=== PATIENT | female | born 1975 | race Caucasian/White ===

== ENCOUNTER 2017-02-04 15:34 | Emergency (ER) | payer OTHER ==
[2017-02-04 15:51] VITALS: BP 130/84; PULSE 89; O2SAT 95
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
[2017-02-04] MEDS ORDERED: BACIGUENT PACKET ONE (16:16)
[2017-02-04] MEDS ORDERED: BACIGUENT PACKET TP ONE (16:19)
== END 2017-02-04 16:26 | disposition home or self-care (01) ==
LOC: ED 15:34
DX: T22.211A Burn of second degree of right forearm, initial encounter (principal); W28.XXXA Contact with powered lawn mower, initial encounter; Y93.H9 Activity, other involving exterior property and land maintenance, building and construction
CPT/HCPCS: 99283; A9270-GY

== ENCOUNTER 2017-06-30 12:30 | Emergency (ER) | payer OTHER ==
[2017-06-30] MEDS ORDERED: BENADRYL 50 MG/ML IV ONE (12:49)
[2017-06-30] MEDS ORDERED: Reglan 10 MG/2 ML IV ONE (12:49)
--- NOTE | 2017-06-30 12:54 | ERPHSYRPT ---
- History of Present Illness Time Seen by Provider: 06/30/17 12:36 Source: patient Physician History: CC: headache Hx: 42 y/o patient of Dr Shannan Reeves. She has headache for past three days, awoke with it. Severe. Photophobia. Never had headaches like this in the past. No fever. Some sweats. No neck pain. Nausea and even vomiting. Always has some chest pains. No N/T/W. [place] some dizziness. Timing/Duration: day(s) (3) Quality: aching Head Pain Location: frontal Severity of Pain-Max: severe Severity of Pain-Current: severe Recent Head Trauma: no recent headache/trauma Associated Symptoms: nausea/vomiting Allergies/Adverse Reactions: Penicillins Allergy (Severe, Verified 02/04/17 15:51) EYES, THROAT SWELLS povidone-iodine [From Betadine] Allergy (Severe, Verified 02/04/17 15:51) Hives soap [From Betadine] Allergy (Intermediate, Verified 02/04/17 15:51) Hives Sulfa (Sulfonamide Antibiotics) Allergy (Intermediate, Verified 02/04/17 15:51) Hives venom-honey bee [bee venom (honey bee)] Allergy (Verified 02/04/17 15:51) Home Medications: Diazepam [Valium] 5 mg PO DAILY 06/30/17 [History] Pregabalin [Lyrica] 25 mg PO DAILY 06/30/17 [History] Hx Tetanus, Diphtheria Vaccination/Date Given: Yes ([place]) Hx Influenza Vaccination/Date Given: Yes Hx Pneumococcal Vaccination/Date Given: No - Review of Systems Constitutional: Malaise, No Fever, No Chills Eyes: No Symptoms, Photophobia, No Vision Changes Ears, Nose, & Throat: No Symptoms Respiratory: No Symptoms Cardiac: Chest Pain, No Syncope Abdominal/Gastrointestinal: Nausea, Vomiting, No Abdominal Pain, No Diarrhea Skin: No Rash Neurological: Dizziness, Headache, No Focal Weakness, No Parasthesia, No Seizure Psychological: Emotional Lability (tearful) All Other Systems: Reviewed and Negative - Past Medical History Pertinent Past Medical History: Yes Neurological History: No Pertinent History ENT History: No Pertinent History Cardiac History: No Pertinent History Respiratory History: COPD Endocrine Medical History: No Pertinent History Musculoskeletal History: Degenerative Disk Disease, Other GI Medical History: No Pertinent History History: No Pertinent History Psycho-Social History: Bipolar, Depression, Panic Disorder, Other Female Reproductive Disorders: No Pertinent History Other Medical History: SLEEP APNEA - Past Surgical History Past Surgical History: Yes Other Surgical History: D/C - Social History Smoking Status: Current every day smoker How long have you smoked: 20 Exposure to second hand smoke: Yes Drug Use: none Patient Lives Alone: No - Nursing Vital Signs Nursing Vital Signs: Initial Vital Signs Temperature 97.8 F 06/30/17 12:43 Pulse Rate 92 H 06/30/17 12:43 Respiratory Rate 16 06/30/17 12:43 Blood Pressure 138/87 06/30/17 12:43 O2 Sat by Pulse Oximetry 96 06/30/17 12:43 Pain Scale Pain Intensity 10 - Physical Exam General Appearance: alert, obese Eye Exam: PERRL/EOMI, photophobia Ears, Nose, Throat Exam: normal ENT inspection, moist mucous membranes Neck Exam: normal inspection, non-tender, supple, No meningismus Respiratory Exam: normal breath sounds Cardiovascular Exam: regular rate/rhythm Gastrointestinal/Abdominal Exam: soft, No tenderness, No distention Extremity Exam: normal inspection, normal range of motion Mental Status Exam: alert, oriented x 3, 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 Exam: normal hearing, normal speech, PERRL Motor/Sensory Exam: no motor deficit, no sensory deficit, no pronator drift Skin Exam: warm, dry, No rash - Course Nursing assessment & vital signs reviewed: Yes EKG Interpreted by Me: RATE (88), Sinus Rhythm, NORMAL AXIS, NORMAL INTERVALS ( QTc 429), Non-specific ST Changes (unchanged from prior tracing) - CT Exams head CT Interpretation: Negative, Tele-radiologist Report Ordered Tests: Active Orders 24 hr Category Date Time Status IV Insertion STAT Care 06/30/17 12:49 Active Oxygen-ED Only NON-REBREATHER 100% Care 06/30/17 12:49 Active HEAD WITHOUT CONTRAST [CT] Stat Exams 06/30/17 12:50 Completed CBC W DIFF Stat Lab 06/30/17 12:45 Completed CMP Stat Lab 06/30/17 12:45 Completed HCG QUALITATIVE,SERUM Stat Lab 06/30/17 12:45 Completed VENOUS BLOOD GAS Urgent Lab 06/30/17 12:57 Completed Medication Summary Generic Name Dose Route Start Last Admin Trade Name Freq PRN Reason Stop Dose Admin Sodium Chloride 1,000 mls @ 250 mls/hr 06/30/17 13:00 06/30/17 12:59 Sodium Chloride 0.9% 1000 Ml IV 07/30/17 12:59 250 mls/hr .Q4H [place] Administration Discontinued Medications Generic Name Dose Route Start Last Admin Trade Name Geovanni PRN Reason Stop Dose Admin Diphenhydramine HCl 25 mg 06/30/17 12:49 06/30/17 12:58 Benadryl 50 Mg/Ml IV 06/30/17 12:50 25 mg STAT ONE Administration Diphenhydramine HCl Confirm 06/30/17 12:57 Benadryl 50 Mg/Ml Administered 06/30/17 12:58 Dose 50 mg .ROUTE .STK-MED ONE Fentanyl Citrate 100 mcg 06/30/17 14:14 Sublimaze 100 Mcg/2 Ml IV 06/30/17 14:15 STAT ONE Ketorolac Tromethamine 30 mg 06/30/17 14:14 Toradol 30 Mg Injection IV 06/30/17 14:15 STAT ONE Metoclopramide HCl 10 mg 06/30/17 12:49 06/30/17 12:58 Reglan 10 Mg/2 Ml IV 06/30/17 12:50 10 mg STAT ONE Administration Metoclopramide HCl Confirm 06/30/17 12:57 Reglan 10 Mg/2 Ml Administered 06/30/17 12:58 Dose 10 mg .ROUTE .STK-MED ONE Lab/Rad Data: Laboratory Result Diagrams 06/30/17 12:45 06/30/17 12:45 Laboratory Results 06/30/17 06/30/17 06/30/17 Range/Units 12:57 12:45 12:45 WBC (4.0-10.5) K/mm3 RBC (4.1-5.4) M/mm3 Hgb (12.0-16.0) gm/dl Hct (35-47) % MCV (78-100) fl MCH (26-32) pg MCHC (32-36) g/dl RDW (11.5-14.0) % Plt Count (150-450) K/mm3 MPV (6-9.5) fl Gran % (36.0-66.0) % Lymphocytes % (24.0-44.0) % Monocytes % (0.0-12.0) % Eosinophils % (0.00-5.0) % Basophils % (0.0-0.4) % Basophils # (0-0.4) VBG pH 7.44 H (7.32-7.42) VBG pCO2 at Pat Temp 38 L (42-55) mm/Hg VBG pO2 at Pat Temp 58 H (25-40) mm/Hg VBG HCO3 25.8 (22-28) meq/L VBG O2 Sat ([place]) 93.8 L (95-100) VBG Base Excess 1.7 (-2.0-2.0) VBG Hemoglobin 15.4 VBG Carboxyhemoglobin 5.5 (0.0-6.9) % T HGB POC Potassium 4.0 (3.5-5.1) Sodium 137 (136-145) mEq/L Potassium 4.0 (3.5-5.1) mEq/L Chloride 102 (98-107) mEq/L Carbon Dioxide 24.6 (21-32) mEq/L Anion Gap 14.0 (5-15) MEQ/L BUN 10 (9-20) mg/dL Creatinine 0.73 (0.55-1.30) mg/dl Estimated GFR > 60 ML/MIN Glucose 93 (70-110) MG/DL Calcium 9.0 (8.5-10.1) mg/dL Total Bilirubin 0.30 (0.2-1.0) mg/dL AST 26 (15-37) U/L ALT 39 (12-78) U/L Alkaline Phosphatase 131 H (46-116) U/L Serum Total Protein 8.2 (6.4-8.2) gm/dL Albumin 3.7 (3.4-5.0) g/dL Serum , Qual NEGATIVE (Negative) 06/30/17 Range/Units 12:45 WBC 8.5 (4.0-10.5) K/mm3 RBC 4.79 (4.1-5.4) M/mm3 Hgb 14.4 (12.0-16.0) gm/dl Hct 44.7 (35-47) % MCV 93.3 (78-100) fl MCH 30.1 (26-32) pg MCHC 32.2 (32-36) g/dl RDW 13.5 (11.5-14.0) % Plt Count 379 (150-450) K/mm3 MPV 10.2 H (6-9.5) fl Gran % 47.2 (36.0-66.0) % Lymphocytes % 39.5 (24.0-44.0) % Monocytes % 11.4 (0.0-12.0) % Eosinophils % 1.8 (0.00-5.0) % Basophils % 0.1 (0.0-0.4) % Basophils # 0.01 (0-0.4) VBG pH (7.32-7.42) VBG pCO2 at Pat Temp (42-55) mm/Hg VBG pO2 at Pat Temp (25-40) mm/Hg VBG HCO3 (22-28) meq/L VBG O2 Sat ([place]) (95-100) VBG Base Excess (-2.0-2.0) VBG Hemoglobin VBG Carboxyhemoglobin (0.0-6.9) % T HGB POC Potassium (3.5-5.1) Sodium (136-145) mEq/L Potassium (3.5-5.1) mEq/L Chloride (98-107) mEq/L Carbon Dioxide (21-32) mEq/L Anion Gap (5-15) MEQ/L BUN (9-20) mg/dL Creatinine (0.55-1.30) mg/dl Estimated GFR ML/MIN Glucose (70-110) MG/DL Calcium (8.5-10.1) mg/dL Total Bilirubin (0.2-1.0) mg/dL AST (15-37) U/L ALT (12-78) U/L Alkaline Phosphatase (46-116) U/L Serum Total Protein (6.4-8.2) gm/dL Albumin (3.4-5.0) g/dL Serum , Qual (Negative) - Progress Progress Note: 06/30/17 14:20 She has some red bumps in the right forehead, mostly inside hairline which are consistent with zoster. She is not sure when the broke out. This is area of most intense pain. She has been medicated. Will Rx acyclovir/norco. Counseled pt/family regarding: lab results, diagnosis, need for follow-up, rad results, smoking cessation - Departure Time of Disposition: 14:21 Departure Disposition: Home Clinical Impression: Headache, Zoster Condition: Stable Critical Care Time: No Referrals: BONG REEVES [Primary Care Provider] - Instructions: Shingles (DC), Headache, Adult (DC) Additional Instructions: See eye doctor for any eye involvement. Rx acyclovir. Rx norco if needed for pain. Follow up with Dr Reeves. No driving and stay with family. Prescriptions: Hydrocodone Bit/Acetaminophen [Juliette 5-325 Tablet] 1 each PO Q6H PRN PRN #15 tablet MDD 4 PRN Reason: Pain Acyclovir 800 mg [Zovirax 800 mg] 800 mg PO 5XD #35 tablet
[2017-06-30] MEDS ORDERED: BENADRYL 50 MG/ML ONE (12:57)
[2017-06-30] MEDS ORDERED: Reglan 10 MG/2 ML ONE (12:57)
[2017-06-30] MEDS ORDERED: Sodium Chloride 0.9% 1000 ML 1,000 ML ONE (12:57)
[2017-06-30 12:59] LABS: VBG BASE EXCESS 1.7 (-2.0-2.0); VBG CARBOXYHEMOGLOBIN 5.5 % T HGB (0.0-6.9); VBG HCO3- 25.8 meq/L (22-28); VBG HEMOGLOBIN 15.4; VBG O2 SATURATION 93.8 (95-100); VBG pH 7.44 (7.32-7.42)
[2017-06-30] MEDS ORDERED: Sodium Chloride 0.9% 1000 ML 1,000 ML IV SCH (13:00)
[2017-06-30 13:02] LABS: BASOPHIL % 0.1 % (0.0-0.4); Basophil (Absolute #) 0.01 (0-0.4); Eosinophil % 1.8 % (0.00-5.0); Eosinophil (Absolute #) 0.15 (0-0.5); Granulocytes % 47.2 % (36.0-66.0); Hematocrit 44.7 % (35-47); Hemoglobin 14.4 gm/dl (12.0-16.0); Lymphocyte (Absolute #) 3.35 (1.0-4.6); Lymphocytes % 39.5 % (24.0-44.0); Mean Cell Volume 93.3 fl (78-100); Mean Corpuscular Hemoglobin 30.1 pg (26-32); Mean Corpuscular Hgb Concent. 32.2 g/dl (32-36); Mean Platelet Volume 10.2 fl (6-9.5); Monocyte (Absolute #) 0.97 (0.0-1.3); Monocytes % 11.4 % (0.0-12.0); Platelet Count 379 K/mm3 (150-450); Red Blood Count 4.79 M/mm3 (4.1-5.4); Red Cell Distribution Width 13.5 % (11.5-14.0); White Blood Count 8.5 K/mm3 (4.0-10.5)
[2017-06-30 13:34] LABS: ALBUMIN 3.7 g/dL (3.4-5.0); ALKALINE PHOSPHATASE 131 U/L (46-116); BLOOD UREA NITROGEN 10 mg/dL (9-20); CHLORIDE 102 mEq/L (98-107); Carbon Dioxide 24.6 mEq/L (21-32); Creatinine 1 0.73 mg/dl (0.55-1.30); EST GLOMERULAR FILTRATION RATE > 60 ML/MIN; Glucose 93 MG/DL (70-110); SGOT/AST 26 U/L (15-37); SGPT/ALT 39 U/L (12-78); SODIUM 137 mEq/L (136-145); Total Protein 8.2 gm/dL (6.4-8.2)
[2017-06-30] MEDS ORDERED: SUBLIMAZE 100 MCG/2 ML IV ONE (14:14)
[2017-06-30] MEDS ORDERED: TORAdol 30 mg Injection IV ONE (14:14)
--- NOTE | 2017-06-30 14:19 | XRAY ---
Indication: Headache and dizziness. Multiple contiguous axial images obtained through the head without contrast. Comparison: None Normal appearing brain parenchyma, ventricles, and bony calvarium. Visualized paranasal sinuses and mastoid air cells are clear. Impression: Normal CT head without contrast exam. CTDI 67.80
[2017-06-30 14:51] VITALS: O2SAT 98
[2017-06-30] MEDS ORDERED: SUBLIMAZE 100 MCG/2 ML ONE (14:53)
[2017-06-30] MEDS ORDERED: TORAdol 30 mg Injection ONE (14:53)
[2017-06-30 16:07] VITALS: BP 120/62; PULSE 82
== END 2017-06-30 15:50 | disposition home or self-care (01) ==
LOC: ED 12:30
DX: B02.9 Zoster without complications (principal); R51 Headache; R42 Dizziness and giddiness
CPT/HCPCS: 36000; 36415; 70450; 80053; 82805; 84703; 85025; 96360; 96361; 96367; 96374; 96375; 99284; J1200; J1885; J3010

== ENCOUNTER 2018-01-12 12:21 | Emergency (ER) | payer OTHER ==
--- NOTE | 2018-01-12 13:12 | ERPHSYRPT ---
- History of Present Illness Time Seen by Provider: 01/12/18 12:54 Historian: patient Exam Limitations: no limitations Physician History: The patient is a 43-year-old obese female complaining of right and left upper abdominal pain intermittently for several months. She also complains of pain with urination for several weeks. Her primary medical doctor is in [place]. She saw her doctor on December 31 and was told she had gallstones. She was given an antibiotic nitrofurantoin for these gallstones. She has finished the prescription and still does not feel better. She denies fever or chills. She also has pain radiating around to the right mid back. Her past medical history is significant for fibromyalgia and anxiety. Timing/Duration: intermittent, worse, other (several months) Activities at Onset: none Quality: aching, burning, sharpness Abdominal Pain Onset Location: RUQ, LUQ, suprapubic Pain Radiation: back (right back) Severity of Pain-Max: moderate Severity of Pain-Current: moderate Modifying Factors: Improves With: analgesics Associated Symptoms: denies symptoms, No diarrhea, No nausea, No vomiting, No weakness Previous symptoms: same symptoms as today, recently seen, recently treated Allergies/Adverse Reactions: Penicillins Allergy (Severe, Verified 01/12/18 13:01) EYES, THROAT SWELLS povidone-iodine [From Betadine] Allergy (Severe, Verified 01/12/18 13:01) Hives soap [From Betadine] Allergy (Intermediate, Verified 01/12/18 13:01) Hives Sulfa (Sulfonamide Antibiotics) Allergy (Intermediate, Verified 01/12/18 13:01) Hives venom-honey bee [bee venom (honey bee)] Allergy (Verified 01/12/18 13:01) Home Medications: Diazepam [Valium] 5 mg PO DAILY 06/30/17 [History] Pregabalin [Lyrica] 25 mg PO DAILY 06/30/17 [History] Hx Tetanus, Diphtheria Vaccination/Date Given: Yes ([place]) Hx Influenza Vaccination/Date Given: Yes Hx Pneumococcal Vaccination/Date Given: No - Review of Systems Constitutional: No Fever, No Chills Eyes: No Symptoms Ears, Nose, & Throat: No Symptoms Respiratory: No Cough, No Dyspnea Cardiac: No Chest Pain, No Edema, No Syncope Abdominal/Gastrointestinal: Abdominal Pain, No Nausea, No Vomiting, No Diarrhea Genitourinary Symptoms: Dysuria Musculoskeletal: No Back Pain, No Neck Pain Skin: No Rash Neurological: No Symptoms Psychological: No Symptoms Endocrine: No Symptoms Hematologic/Lymphatic: No Symptoms Immunological/Allergic: No Symptoms All Other Systems: Reviewed and Negative - Past Medical History Pertinent Past Medical History: Yes Neurological History: No Pertinent History ENT History: No Pertinent History Cardiac History: No Pertinent History Respiratory History: COPD Endocrine Medical History: No Pertinent History Musculoskeletal History: Degenerative Disk Disease, Other GI Medical History: No Pertinent History History: No Pertinent History Psycho-Social History: Bipolar, Depression, Panic Disorder, Other Female Reproductive Disorders: No Pertinent History Other Medical History: SLEEP APNEA - Past Surgical History Past Surgical History: Yes Other Surgical History: D/C - Social History Smoking Status: Current every day smoker How long have you smoked: 20 Exposure to second hand smoke: Yes Drug Use: none Patient Lives Alone: No - Nursing Vital Signs Nursing Vital Signs: Initial Vital Signs Temperature 98.5 F 01/12/18 12:35 Pulse Rate 91 H 01/12/18 12:35 Respiratory Rate 20 01/12/18 12:35 Blood Pressure 95/67 01/12/18 12:35 O2 Sat by Pulse Oximetry 93 L 01/12/18 12:35 Pain Scale Pain Intensity 9 - Physical Exam General Appearance: mild distress (I), obese Eye Exam: PERRL/EOMI, eyes nml inspection Ears, Nose, Throat Exam: normal ENT inspection, pharynx normal, moist mucous membranes Neck Exam: normal inspection, non-tender, supple, full range of motion Respiratory Exam: normal breath sounds, lungs clear, No respiratory distress Cardiovascular Exam: regular rate/rhythm, normal heart sounds Gastrointestinal/Abdomen Exam: tenderness (RUQ and LUQ), other (obese) Pelvic Exam: not done Rectal Exam: not done Back Exam: muscle spasm (right paraspinous) Extremity Exam: normal inspection, normal range of motion, pelvis stable Neurologic Exam: alert, oriented x 3, cooperative, normal mood/affect, nml cerebellar function, sensation nml, No motor deficits Skin Exam: normal color, warm, dry SpO2 Interpretation: normal Oxygen Delivery: Room Air - Radiology Exams Abdomen X-ray Interpretation: Reviewed by me, Teleradiologist Report (per Dr Ugarte), Negative - Radiology Ultrasound Exam Gallbladder Ultrasound: tele radiology report (per Dr Ugarte.), gall bladder stones (few subcentimeter gallstones near neck of gall bladder without GB wall thickening. No intrahepatic biliary distention.) Ordered Tests: Active Orders 24 hr Category Date Time Status Clean Catch Urine Specimen STAT Care 01/12/18 13:19 Active IV Insertion STAT Care 01/12/18 13:19 Active GALLBLADDER [US] Stat Exams 01/12/18 14:43 Completed KUB Stat Exams 01/12/18 13:20 Completed CBC W DIFF Stat Lab 01/12/18 13:35 Completed CMP Stat Lab 01/12/18 13:35 Completed CULTURE,URINE Stat Lab 01/12/18 13:30 Received LIPASE Stat Lab 01/12/18 13:35 Completed UA W/ MICROSCOPIC Stat Lab 01/12/18 13:30 Completed Medication Summary Discontinued Medications Generic Name Dose Route Start Last Admin Trade Name Freq PRN Reason Stop Dose Admin Sodium Chloride 1,000 mls @ 999 mls/hr 01/12/18 13:19 01/12/18 13:32 Sodium Chloride 0.9% 1000 Ml IV 01/12/18 14:19 999 mls/hr .Q1H1M STA Administration Sodium Chloride Confirm 01/12/18 13:30 Sodium Chloride 0.9% 1000 Ml Administered 01/12/18 13:31 Dose 1,000 mls @ ud .ROUTE .STK-MED ONE Ondansetron HCl 4 mg 01/12/18 13:19 01/12/18 13:32 Zofran 4 Mg/2 Ml Vial IV 01/12/18 13:20 4 mg STAT ONE Administration Ondansetron HCl Confirm 01/12/18 13:30 Zofran 4 Mg/2 Ml Vial Administered 01/12/18 13:31 Dose 4 mg .ROUTE .STK-MED ONE Lab/Rad Data: Laboratory Result Diagrams 01/12/18 13:35 01/12/18 13:35 Laboratory Results 01/12/18 01/12/18 01/12/18 Range/Units 13:35 13:35 13:30 WBC 8.7 (4.0-10.5) K/mm3 RBC 4.61 (4.1-5.4) M/mm3 Hgb 14.0 (12.0-16.0) gm/dl Hct 42.4 (35-47) % MCV 92.0 (78-100) fl MCH 30.4 (26-32) pg MCHC 33.0 (32-36) g/dl RDW 14.5 H (11.5-14.0) % Plt Count 392 (150-450) K/mm3 MPV 11.0 H (6-9.5) fl Gran % 48.0 (36.0-66.0) % Eos # (Auto) 0.14 (0-0.5) Absolute Lymphs (auto) 3.45 (1.0-4.6) Absolute Monos (auto) 0.93 (0.0-1.3) Lymphocytes % 39.5 (24.0-44.0) % Monocytes % 10.7 (0.0-12.0) % Eosinophils % 1.6 (0.00-5.0) % Basophils % 0.2 (0.0-0.4) % Absolute Granulocytes 4.19 (1.4-6.9) Basophils # 0.02 (0-0.4) Sodium 141 (137-145) mmol/L Potassium 3.8 (3.5-5.1) mmol/L Chloride 106 (98-107) mmol/L Carbon Dioxide 24 (22-30) mmol/L Anion Gap 14.4 (5-15) MEQ/L BUN 11 (7-17) mg/dL Creatinine 0.54 (0.52-1.04) mg/dL Estimated GFR > 60.0 ML/MIN Glucose 97 (74-106) mg/dL Calcium 9.3 (8.4-10.2) mg/dL Total Bilirubin 0.20 (0.2-1.3) mg/dL AST 125 H (14-36) U/L ALT 246 H (0-35) U/L Alkaline Phosphatase 174 H (38-126) U/L Serum Total Protein 7.5 (6.3-8.2) g/dL Albumin 4.2 (3.5-5.0) g/dL Lipase 71 (23-300) U/L Ur Collection Type VOID Urine Color YELLOW (YELLOW) Urine Appearance HAZY (CLEAR) Urine pH 8.0 (5-6) Ur Specific [place] 1.005 (1.005-1.025) Urine Protein TRACE (Negative) Urine Ketones NEGATIVE (NEGATIVE) Urine Blood NEGATIVE (0-5) Noel/ul Urine Nitrite NEGATIVE (NEGATIVE) Urine Bilirubin NEGATIVE (NEGATIVE) Urine Urobilinogen NORMAL (0-1) mg/dL Ur Leukocyte Esterase 1+ (NEGATIVE) Urine Microscopic WBC 5-10 (0-5) /HPF Ur Epithelial Cells MODERATE (FEW) /HPF Urine Bacteria FEW (NEGATIVE) /HPF Urine Culture Reflexed YES (NO) Urine Glucose NEGATIVE (NEGATIVE) mg/dL Specimen Received 01/12/18 1330 - Progress Progress: improved Counseled pt/family regarding: lab results, diagnosis, need for follow-up, rad results - Departure Time of Disposition: 16:11 Departure Disposition: Home Clinical Impression: Abdominal pain, Elevated transaminase level, Gallstones without obstruction of gallbladder Condition: Stable Critical Care Time: No Referrals: DOCTOR,NO FAMILY [Primary Care Provider] - Additional Instructions: You have a few small gallstones in the gallbladder without obstruction of the gallbladder. Your liver enzymes are mildly elevated today. You were given Zofran 4 mg, Toradol 30 mg, and morphine 4 mg IV in the ER. Avoid eating fatty foods. Follow-up with your primary medical doctor.
[2018-01-12] MEDS ORDERED: Zofran 4 MG/2 ML VIAL ONE (13:30)
[2018-01-12] MEDS ORDERED: Sodium Chloride 0.9% 1000 ML 1,000 ML ONE (13:30)
[2018-01-12] MEDS: Sodium Chloride 0.9% 1000 ML 1,000 ML IV STA (13:32)
[2018-01-12] MEDS: Zofran 4 MG/2 ML VIAL IV ONE (13:32)
[2018-01-12 13:53] LABS: BASOPHIL % 0.2 % (0.0-0.4); Basophil (Absolute #) 0.02 (0-0.4); Eosinophil % 1.6 % (0.00-5.0); Eosinophil (Absolute #) 0.14 (0-0.5); Granulocyte Absolute (ANC) 4.19 (1.4-6.9); Hematocrit 42.4 % (35-47); Lymphocyte (Absolute #) 3.45 (1.0-4.6); Lymphocytes % 39.5 % (24.0-44.0); Mean Corpuscular Hemoglobin 30.4 pg (26-32); Monocyte (Absolute #) 0.93 (0.0-1.3); Monocytes % 10.7 % (0.0-12.0); Platelet Count 392 K/mm3 (150-450); Red Blood Count 4.61 M/mm3 (4.1-5.4); Red Cell Distribution Width 14.5 % (11.5-14.0); White Blood Count 8.7 K/mm3 (4.0-10.5)
--- NOTE | 2018-01-12 14:06 | XRAY ---
Indication: Right upper quadrant pain. Comparison: None KUB nonacute and nonobstructed. Solid organs and osseous structures unremarkable. Impression: Negative KUB.
[2018-01-12 14:08] LABS: Appearance HAZY (CLEAR); Bacteria FEW /HPF (NEGATIVE); Bilirubin NEGATIVE (NEGATIVE); Blood NEGATIVE Ery/ul (0-5); Epithelial Cells MODERATE /HPF (FEW); Glucose NEGATIVE (NEGATIVE); Ketones NEGATIVE (NEGATIVE); Leukocyte Esterase 1+ (NEGATIVE); Nitrite NEGATIVE (NEGATIVE); Protein,Urine Dip TRACE (Negative); Specific Gravity 1.005 (1.005-1.025); Urobilinogen NORMAL mg/dL (0-1)
[2018-01-12 14:17] LABS: ALBUMIN 4.2 g/dL (3.5-5.0); ALKALINE PHOSPHATASE 174 U/L (38-126); ANION GAP 14.4 MEQ/L (5-15); BLOOD UREA NITROGEN 11 mg/dL (7-17); CHLORIDE 106 mmol/L (98-107); Calcium 9.3 mg/dL (8.4-10.2); Carbon Dioxide 24 mmol/L (22-30); Creatinine 1 0.54 mg/dL (0.52-1.04); Glucose 97 mg/dL (74-106); LIPASE 71 U/L (23-300); Potassium 3.8 mmol/L (3.5-5.1); SGOT/AST 125 U/L (14-36); SGPT/ALT 246 U/L (0-35); SODIUM 141 mmol/L (137-145); Total Protein 7.5 g/dL (6.3-8.2)
--- NOTE | 2018-01-12 15:22 | XRAY ---
Indication: Epigastric pain. Two-dimensional gallbladder sonogram performed. Comparison: May 08, 2015. Gallbladder normally distended with now a few subcentimeter gallstones near the neck of the gallbladder. No wall thickening or pericholecystic fluid. Common bile duct measures 5.2 mm. No intrahepatic biliary distention. Remaining visualized portions of the liver, pancreas, and right kidney appear sonographically unremarkable. Right kidney measures 10.2 cm in length. No ascites. Impression: New cholelithiasis without cholecystitis.
[2018-01-12] MEDS ORDERED: MORPHINE SULFATE 4 MG INJ ONE (16:14)
[2018-01-12] MEDS ORDERED: TORAdol 30 mg Injection ONE (16:14)
[2018-01-12] MEDS: TORAdol 30 mg Injection IV ONE (16:25)
[2018-01-12] MEDS: MORPHINE SULFATE 4 MG INJ IV PRN (16:25)
[2018-01-12 16:51] VITALS: BP 140/90; PULSE 88; O2SAT 96
== END 2018-01-12 16:50 | disposition home or self-care (01) ==
LOC: ED 12:21
DX: R10.11 Right upper quadrant pain (principal); R10.12 Left upper quadrant pain; R74.0 Nonspecific elevation of levels of transaminase and lactic acid dehydrogenase [LDH]; K80.80 Other cholelithiasis without obstruction; Z79.899 Other long term (current) drug therapy
CPT/HCPCS: 36000; 36415; 74018; 76705; 80053; 81000; 83690; 85025; 87086; 96360; 96374; 96375; 99284; J1885; J2270; J2405

== ENCOUNTER 2018-02-27 09:58 | Emergency (ER) | payer OTHER ==
[2018-02-27] MEDS ORDERED: Sodium Chloride 0.9% 1000 ML 1,000 ML IV STA (10:33)
[2018-02-27] MEDS ORDERED: Sodium Chloride 0.9% 1000 ML 1,000 ML ONE (10:41)
[2018-02-27 11:05] LABS: BASOPHIL % 0.1 % (0.0-0.4); Basophil (Absolute #) 0.01 (0-0.4); Eosinophil (Absolute #) 0.18 (0-0.5); Granulocyte Absolute (ANC) 4.92 (1.4-6.9); Granulocytes % 54.2 % (36.0-66.0); Hemoglobin 13.7 gm/dl (12.0-16.0); Lymphocyte (Absolute #) 3.04 (1.0-4.6); Lymphocytes % 33.5 % (24.0-44.0); Mean Cell Volume 92.7 fl (78-100); Mean Corpuscular Hemoglobin 30.2 pg (26-32); Mean Corpuscular Hgb Concent. 32.6 g/dl (32-36); Mean Platelet Volume 10.4 fl (6-9.5); Monocyte (Absolute #) 0.93 (0.0-1.3); Monocytes % 10.2 % (0.0-12.0); Platelet Count 416 K/mm3 (150-450); Red Blood Count 4.53 M/mm3 (4.1-5.4); Red Cell Distribution Width 14.5 % (11.5-14.0); White Blood Count 9.1 K/mm3 (4.0-10.5)
--- NOTE | 2018-02-27 11:17 | XRAY ---
Indication: Headache and right facial numbness. Multiple contiguous axial images obtained through the head without contrast. Comparison: June 30, 2017. Again normal appearing brain parenchyma, ventricles, and bony calvarium. Visualized paranasal sinuses and mastoid air cells are clear. Impression: Stable normal CT head without contrast exam. CT DI 66.12
--- NOTE | 2018-02-27 11:24 | XRAY ---
Indication: Headache and right facial numbness. Multiple contiguous axial images obtained through the cervical spine. Sagittal and coronal reformatted images obtained. Comparison: CT neck December 19, 2012. Axial images again demonstrates C1 and C2 spina bifida occulta. No acute fracture, suspicious bony lesions, or spinal canal stenosis. Sagittal and coronal reformatted images again demonstrates cervical lordotic straightening, positional versus paraspinal spasm. Vertebral body heights and disc spaces maintained. No acute compression fracture, subluxation, or jumped facet. Normal-appearing craniocervical junction. Visualized noncontrasted soft tissues including lung apices unremarkable. CT head reported separately. Impression: 1. Stable C1 and C2 spina bifida occulta and cervical lordotic straightening. 2. Remaining CT cervical spine negative. CT DI 66.57
[2018-02-27 11:26] LABS: ALKALINE PHOSPHATASE 137 U/L (38-126); ANION GAP 13.4 MEQ/L (5-15); BLOOD UREA NITROGEN 11 mg/dL (7-17); CHLORIDE 106 mmol/L (98-107); Calcium 9.1 mg/dL (8.4-10.2); Carbon Dioxide 25 mmol/L (22-30); Creatinine 1 0.53 mg/dL (0.52-1.04); Glucose 98 mg/dL (74-106); SGOT/AST 40 U/L (14-36); SGPT/ALT 65 U/L (0-35); SODIUM 140 mmol/L (137-145); Total Protein 7.3 g/dL (6.3-8.2)
--- NOTE | 2018-02-27 11:30 | ERPHSYRPT ---
- History of Present Illness Time Seen by Provider: 02/27/18 10:10 Source: patient, EMS Patient Subjective Stated Complaint: pt here for neck pain since this morning, sleeping a lot, and hypertension at home, but b/p was normal in ambulance. pt was seen at [facility] 3 days ago for headache Triage Nursing Assessment: pt alert, resp easy. skin w/d/p, no edema noted, Physician History: 43 y/o obese white female presents with generalized "not feeling well". she has had the sx for over 2 days. she was evaluated at [facility] 2 days ago. pt states "they didnt do anything for me". when asked specifically what her sx are she states neck pain and facial numbness. her pcp in [place]. pt denies soa and denies cp. pt denies abd pain. she denies flank pain and denies dysuria. Timing/Duration: day(s) (a few days) Severity: mild Modifying Factors: Improves With: movement Associated Symptoms: No nausea, No vomiting, No abdominal pain, No shortness of breath, No heartburn, No diaphoresis, No cough, No chills, No chest pain, No fever, No headaches, No loss of appetite, No malaise, No rash, No syncope, No seizure, No weakness Allergies/Adverse Reactions: Penicillins Allergy (Severe, Verified 02/27/18 10:05) EYES, THROAT SWELLS povidone-iodine [From Betadine] Allergy (Severe, Verified 02/27/18 10:05) Hives soap [From Betadine] Allergy (Intermediate, Verified 02/27/18 10:05) Hives Sulfa (Sulfonamide Antibiotics) Allergy (Intermediate, Verified 02/27/18 10:05) Hives venom-honey bee [bee venom (honey bee)] Allergy (Verified 02/27/18 10:05) Home Medications: Diazepam [Valium] 5 mg PO DAILY 06/30/17 [History] Pregabalin [Lyrica] 25 mg PO DAILY 06/30/17 [History] Hx Tetanus, Diphtheria Vaccination/Date Given: Yes ([place]) Hx Influenza Vaccination/Date Given: No Hx Pneumococcal Vaccination/Date Given: No Immunizations Up to Date: Yes - Review of Systems Constitutional: Weakness, No Fever, No Chills Eyes: No Symptoms, No Discharge, No Eye Pain Ears, Nose, & Throat: No Symptoms, No Ear Pain, No Ear Discharge Respiratory: No Symptoms, No Cough, No Cyanosis, No Dyspnea, No Stridor, No Wheezing Cardiac: No Symptoms, No Chest Pain, No Palpitations, No Syncope Abdominal/Gastrointestinal: No Symptoms, No Abdominal Pain, No Nausea, No Vomiting, No Diarrhea Genitourinary Symptoms: No Symptoms, No Dysuria, No Frequency, No Hematuria, No Urinary Retention, No Flank Pain Musculoskeletal: No Symptoms Skin: No Symptoms Neurological: Parasthesia (facial) Psychological: Anxiety, No Hallucinations Endocrine: No Symptoms Hematologic/Lymphatic: No Symptoms Immunological/Allergic: No Symptoms All Other Systems: Reviewed and Negative - Past Medical History Pertinent Past Medical History: Yes Neurological History: No Pertinent History ENT History: No Pertinent History Cardiac History: No Pertinent History Respiratory History: COPD Endocrine Medical History: No Pertinent History Musculoskeletal History: Degenerative Disk Disease, Other GI Medical History: No Pertinent History History: No Pertinent History Psycho-Social History: Bipolar, Depression, Panic Disorder, Other Female Reproductive Disorders: No Pertinent History Other Medical History: SLEEP APNEA - Past Surgical History Past Surgical History: Yes Neuro Surgical History: No Pertinent History Cardiac: No Pertinent History Respiratory: No Pertinent History Gastrointestinal: No Pertinent History Genitourinary: No Pertinent History Musculoskeletal: No Pertinent History Female Surgical History: No Pertinent History Other Surgical History: D/C - Social History Smoking Status: Current every day smoker How long have you smoked: 20 Exposure to second hand smoke: Yes Drug Use: none Patient Lives Alone: No - Female History Hx Last Menstrual Period: [place] Hx Now: No - Nursing Vital Signs Nursing Vital Signs: Initial Vital Signs Temperature 96 F 02/27/18 09:59 Pulse Rate 84 02/27/18 09:59 Respiratory Rate 18 02/27/18 09:59 Blood Pressure 129/64 02/27/18 09:59 O2 Sat by Pulse Oximetry 97 02/27/18 09:59 Pain Scale Pain Intensity 8 - Physical Exam General Appearance: no apparent distress, alert, anxiety Eye Exam: PERRL/EOMI, eyes nml inspection Ears, Nose, Throat Exam: normal ENT inspection, TMs normal, pharynx normal, moist mucous membranes Neck Exam: normal inspection, supple, full range of motion, other (pt states mild bilat paraspinous tenderness with palpation. no midline tenderness) Respiratory Exam: normal breath sounds, lungs clear, airway intact, No chest tenderness, No respiratory distress, No diminished breath sounds, No accessory muscle use, No rhonchi, No wheezing, No stridor Cardiovascular Exam: regular rate/rhythm, normal heart sounds, normal peripheral pulses Gastrointestinal/Abdomen Exam: soft, normal bowel sounds, No tenderness, No guarding, No rebound Pelvic Exam: not done Rectal Exam: not done Back Exam: normal inspection, normal range of motion, No CVA tenderness, No vertebral tenderness Extremity Exam: normal inspection, normal range of motion, pelvis stable Neurologic Exam: alert, oriented x 3, cooperative, gardener florist II-XII nml as tested Skin Exam: normal color, warm Lymphatic Exam: No adenopathy SpO2 Interpretation: normal SpO2: 97 Oxygen Delivery: Room Air - Course Nursing assessment & vital signs reviewed: Yes EKG Interpreted by Me: RATE (74), Sinus Rhythm, NORMAL AXIS, NORMAL INTERVALS, NORMAL QRS (no change from ekg dated 06/30/17), Non-specific ST Changes Ordered Tests: Active Orders 24 hr Category Date Time Status Practical Nurse STAT Care 02/27/18 10:38 Active Clean Catch Urine Specimen STAT Care 02/27/18 10:33 Active EKG-ER Only STAT Care 02/27/18 10:38 Active IV Insertion STAT Care 02/27/18 10:33 Active Pulse Oximetry (ED) STAT Care 02/27/18 10:33 Active CERVICAL SPINE WO CONTRAST [CT] Stat Exams 02/27/18 10:55 Completed HEAD WITHOUT CONTRAST [CT] Stat Exams 02/27/18 10:36 Completed CBC W DIFF Stat Lab 02/27/18 10:52 Completed CMP Stat Lab 02/27/18 10:52 Completed CULTURE,URINE Stat Lab 02/27/18 11:39 Received TROPONIN Q3H Lab 02/27/18 11:42 Received TROPONIN Q3H Lab 02/27/18 14:45 Ordered TROPONIN Q3H Lab 02/27/18 17:45 Ordered TROPONIN Q3H Lab 02/27/18 20:45 Ordered TROPONIN Q3H Lab 02/27/18 23:45 Ordered UA W/ MICROSCOPIC Stat Lab 02/27/18 11:39 Completed Urine Triage Profile Stat Lab 02/27/18 11:34 Ordered Medication Summary Discontinued Medications Generic Name Dose Route Start Last Admin Trade Name Freq PRN Reason Stop Dose Admin Hydromorphone HCl 0.5 mg 02/27/18 11:37 02/27/18 11:42 Hydromorphone 1 Mg/Ml Ampule IV 02/27/18 11:38 0.5 mg STAT ONE Administration Hydromorphone HCl Confirm 02/27/18 11:40 Hydromorphone 1 Mg/Ml Ampule Administered 02/27/18 11:41 Dose 1 mg .ROUTE .STK-MED ONE Sodium Chloride 1,000 mls @ 999 mls/hr 02/27/18 10:33 02/27/18 11:36 Sodium Chloride 0.9% 1000 Ml IV 02/27/18 11:33 999 mls/hr .Q1H1M STA Administration Sodium Chloride Confirm 02/27/18 10:41 Sodium Chloride 0.9% 1000 Ml Administered 02/27/18 10:42 Dose 1,000 mls @ ud .ROUTE .STK-MED ONE Ondansetron HCl 4 mg 02/27/18 11:37 02/27/18 11:43 Zofran 4 Mg/2 Ml Vial IV 02/27/18 11:38 4 mg STAT ONE Administration Ondansetron HCl Confirm 02/27/18 11:39 Zofran 4 Mg/2 Ml Vial Administered 02/27/18 11:40 Dose 4 mg .ROUTE .STK-MED ONE Lab/Rad Data: Laboratory Result Diagrams 02/27/18 10:52 02/27/18 10:52 Laboratory Results 02/27/18 02/27/18 02/27/18 Range/Units 11:39 10:52 10:52 WBC 9.1 (4.0-10.5) K/mm3 RBC 4.53 (4.1-5.4) M/mm3 Hgb 13.7 (12.0-16.0) gm/dl Hct 42.0 (35-47) % MCV 92.7 (78-100) fl MCH 30.2 (26-32) pg MCHC 32.6 (32-36) g/dl RDW 14.5 H (11.5-14.0) % Plt Count 416 (150-450) K/mm3 MPV 10.4 H (6-9.5) fl Gran % 54.2 (36.0-66.0) % Eos # (Auto) 0.18 (0-0.5) Absolute Lymphs (auto) 3.04 (1.0-4.6) Absolute Monos (auto) 0.93 (0.0-1.3) Lymphocytes % 33.5 (24.0-44.0) % Monocytes % 10.2 (0.0-12.0) % Eosinophils % 2.0 (0.00-5.0) % Basophils % 0.1 (0.0-0.4) % Absolute Granulocytes 4.92 (1.4-6.9) Basophils # 0.01 (0-0.4) Sodium 140 (137-145) mmol/L Potassium 4.0 (3.5-5.1) mmol/L Chloride 106 (98-107) mmol/L Carbon Dioxide 25 (22-30) mmol/L Anion Gap 13.4 (5-15) MEQ/L BUN 11 (7-17) mg/dL Creatinine 0.53 (0.52-1.04) mg/dL Estimated GFR > 60.0 ML/MIN Glucose 98 (74-106) mg/dL Calcium 9.1 (8.4-10.2) mg/dL Total Bilirubin 0.20 (0.2-1.3) mg/dL AST 40 H (14-36) U/L ALT 65 H (0-35) U/L Alkaline Phosphatase 137 H (38-126) U/L Serum Total Protein 7.3 (6.3-8.2) g/dL Albumin 4.0 (3.5-5.0) g/dL Ur Collection Type CLEAN CATCH Urine Color LT.YELLOW (YELLOW) Urine Appearance SLIGHTLY CLOUDY (CLEAR) Urine pH 6.0 (5-6) Ur Specific [place] 1.015 (1.005-1.025) Urine Protein NEGATIVE (Negative) Urine Ketones NEGATIVE (NEGATIVE) Urine Blood NEGATIVE (0-5) Noel/ul Urine Nitrite NEGATIVE (NEGATIVE) Urine Bilirubin NEGATIVE (NEGATIVE) Urine Urobilinogen NORMAL (0-1) mg/dL Ur Leukocyte Esterase SMALL (NEGATIVE) Urine Microscopic RBC 0-2 (0-2) /HPF Urine Microscopic WBC 2-5 (0-5) /HPF Ur Epithelial Cells MANY (FEW) /HPF Urine Bacteria MANY (NEGATIVE) /HPF Urine Mucus SLIGHT (NEGATIVE) /HPF Urine Culture Reflexed YES (NO) Urine Glucose NEGATIVE (NEGATIVE) mg/dL - Progress Progress: improved Progress Note: 02/27/18 11:59 arrived and added information about pt was exposed to bug spray recently when their house was sprayed. Counseled pt/family regarding: lab results, diagnosis, need for follow-up, rad results - Departure Time of Disposition: 13:03 Departure Disposition: Home Clinical Impression: Weakness, UTI (urinary tract infection) Condition: Stable Critical Care Time: No Referrals: DOCTOR,NO FAMILY [Primary Care Provider] - Additional Instructions: drink plenty of fluids. follow up with primary doctor for further management. Prescriptions: Ciprofloxacin [Cipro 500 MG] 500 mg PO BID #14 tablet
[2018-02-27] MEDS ORDERED: Hydromorphone 1 mg/ml Ampule IV ONE (11:37)
[2018-02-27] MEDS ORDERED: Zofran 4 MG/2 ML VIAL IV ONE (11:37)
[2018-02-27] MEDS ORDERED: Zofran 4 MG/2 ML VIAL ONE (11:39)
[2018-02-27] MEDS ORDERED: Hydromorphone 1 mg/ml Ampule ONE (11:40)
[2018-02-27 11:51] LABS: Appearance SLIGHTLY CLOUDY (CLEAR); Bacteria MANY /HPF (NEGATIVE); Bilirubin NEGATIVE (NEGATIVE); Blood NEGATIVE Ery/ul (0-5); Epithelial Cells MANY /HPF (FEW); Glucose NEGATIVE (NEGATIVE); Ketones NEGATIVE (NEGATIVE); Leukocyte Esterase SMALL (NEGATIVE); Mucus SLIGHT /HPF (NEGATIVE); Nitrite NEGATIVE (NEGATIVE); Protein,Urine Dip NEGATIVE (Negative); RBC 0-2 /HPF (0-2); Specific Gravity 1.015 (1.005-1.025); Urobilinogen NORMAL mg/dL (0-1)
[2018-02-27 12:42] LABS: Amphetamine,Urine NEGATIVE (NEGATIVE); Barbiturate,Urine NEGATIVE (NEGATIVE); Benzodiazepine,Urine POSITIVE (NEGATIVE); Cocaine,Urine NEGATIVE (NEGATIVE); Methadone,Urine NEGATIVE (NEGATIVE); Opiate,Urine POSITIVE (NEGATIVE); PCP,Urine NEGATIVE (NEGATIVE); THC,Urine POSITIVE (NEGATIVE)
[2018-02-27] MEDS ORDERED: Cipro 500 MG PO ONE (13:07)
[2018-02-27] MEDS ORDERED: Cipro 500 MG ONE (13:12)
[2018-02-27] MEDS ORDERED: NORCO 5/325 MG PO ONE (13:14)
[2018-02-27] MEDS ORDERED: NORCO 5/325 MG ONE (13:21)
[2018-02-27 13:34] VITALS: BP 120/86; PULSE 68; O2SAT 95
== END 2018-02-27 13:34 | disposition home or self-care (01) ==
LOC: ED 09:58
DX: R53.1 Weakness (principal); N39.0 Urinary tract infection, site not specified; Z79.899 Other long term (current) drug therapy; M54.2 Cervicalgia; R20.0 Anesthesia of skin
CPT/HCPCS: 36415; 70450; 72125; 80053; 80307; 81000; 84484; 85025; 87086; 93005; 93041; 96360; 96374; 96375; 99284; J1170; J2405; A9270-GY

== ENCOUNTER 2018-08-10 12:41 | Observation (INO) | payer OTHER ==
[2018-08-10 14:11] LABS: BASOPHIL % 0.1 % (0.0-0.4); Basophil (Absolute #) 0.01 (0-0.4); Eosinophil % 1.1 % (0.00-5.0); Granulocyte Absolute (ANC) 4.64 (1.4-6.9); Granulocytes % 50.9 % (36.0-66.0); Hematocrit 44.2 % (35-47); Hemoglobin 14.3 gm/dl (12.0-16.0); Lymphocyte (Absolute #) 3.34 (1.0-4.6); Lymphocytes % 36.6 % (24.0-44.0); Mean Cell Volume 91.9 fl (78-100); Mean Corpuscular Hemoglobin 29.7 pg (26-32); Mean Corpuscular Hgb Concent. 32.4 g/dl (32-36); Mean Platelet Volume 10.3 fl (6-9.5); Monocyte (Absolute #) 1.03 (0.0-1.3); Monocytes % 11.3 % (0.0-12.0); Platelet Count 417 K/mm3 (150-450); Red Blood Count 4.81 M/mm3 (4.1-5.4); Red Cell Distribution Width 15.2 % (11.5-14.0); White Blood Count 9.1 K/mm3 (4.0-10.5)
--- NOTE | 2018-08-10 14:21 | PCM.SSS ---
History of Present Illness - Chief Complaint Chief Complaint: ob check History of Present Illness: is a 43 year old female who claims to be and due in October, LMP was "4 1/2-5months ago" patient unable to be more exact. she claims she was told she was in aneta but story has been inconsistent with nursing, initially she said she did not have an ultrasound but then claimed she did. She arrived today complaining of lower abdominal cramping and pain, no bleeding. she feels as though her stomach is distended from and that she feels movement. she denies any current med use, takes nitro for her heart but hasn't since she was told she was . has had d and c for miscarriage in the past, no other abdominal surgery. - Review of Systems Constitutional: No Fever, No Chills Respiratory: No Cough, No Short Of Breath Cardiac: No Chest Pain, No Edema, No Syncope Abdominal/Gastrointestinal: Abdominal Pain, No Nausea, No Vomiting, No Diarrhea Genitourinary Symptoms: No Symptoms Skin: No Rash All Other Systems: Reviewed and Negative Medications & Allergies Home Medications: Home Medication List Diazepam [Valium] 5 mg PO DAILY 06/30/17 [History Confirmed 02/27/18] Pregabalin [Lyrica] 25 mg PO DAILY 06/30/17 [History Confirmed 01/12/18] Ciprofloxacin [Cipro 500 MG] 500 mg PO BID #14 tablet 02/27/18 [Rx] Allergies/Adverse Reactions: Allergies Allergy/AdvReac Type Severity Reaction Status Date / Time Penicillins Allergy Severe Verified 02/27/18 10:05 povidone-iodine Allergy Severe Hives Verified 02/27/18 10:05 [From Betadine] soap [From Betadine] Allergy Intermediate Hives Verified 02/27/18 10:05 Sulfa (Sulfonamide Allergy Intermediate Hives Verified 02/27/18 10:05 Antibiotics) venom-honey bee Allergy Verified 02/27/18 10:05 [bee venom (honey bee)] - Past Medical History Past Medical History: Yes Neurological History: No Pertinent History ENT History: No Pertinent History Cardiac History: No Pertinent History Respiratory History: COPD Endocrine Medical History: No Pertinent History Musculoskelatal History: Degenerative Disk Disease, Other GI Medical History: No Pertinent History History: No Pertinent History Pyscho-Social History: Bipolar, Depression, Panic Disorder, Other Reproductive Disorders: No Pertinent History Comment: SLEEP APNEA - Past Surgical History Past Surgical History: Yes Neuro Surgical History: No Pertinent History Cardiac History: No Pertinent History Respiratory Surgery: No Pertinent History GI Surgical History: No Pertinent History Genitourinary Surgical Hx: No Pertinent History Musculskeletal Surgical Hx: No Pertinent History Female Surgical History: No Pertinent History Other Surgical History: D/C - Social History Smoking Status: Current every day smoker How long have you smoked: 20 Exposure to second hand smoke: Yes Alcohol: None Drug Use: none - Physical Exam General Appearance: obese Neurologic Exam: alert Respiratory Exam: normal breath sounds, lungs clear, No respiratory distress Cardiovascular Exam: regular rate/rhythm, normal heart sounds, normal peripheral pulses Gastrointestinal/Abdomen Exam: soft (obese), normal bowel sounds, No tenderness , No distention Extremity Exam: normal inspection, normal range of motion, pelvis stable Skin Exam: normal color, warm, dry, No rash Results - Radiology Impressions Radiology Exams & Impressions: Radiology Procedures Category Date Time Status PELVIC [US] Stat Exams 08/10/18 13:57 Taken Assessment/Plan (1) Abdominal pain Current Visit: No Status: Acute Assessment & Plan: ultrasound in ob shows no evidence of , nongravid uterus. patient told registration she was due in October so she was sent to OB but appears has not only not been confirmed but is absent. ordered stat labs, if hcg quant is negative she will be sent from labor and delivery to ER for evaluation of her abdominal pain and feeling distended etc. patient seems unaccepting of not being and claims she heart heartbeat on EFM prior to ultrasound which is impossible with no pole on ultrasound, I explained this to her and plan to transfer to ER if is ruled out. Code(s): R10.9 - UNSPECIFIED ABDOMINAL PAIN Hospital Summary - Radiology Exams Ordered Rad Exams-Entire Visit: Radiology Procedures Category Date Time Status PELVIC [US] Stat Exams 08/10/18 13:57 Taken - Discharge Disposition: XFER OTHER Condition: Stable Prescriptions: No Action Pregabalin [Lyrica] 25 mg PO DAILY Diazepam [Valium] 5 mg PO DAILY Ciprofloxacin [Cipro 500 MG] 500 mg PO BID #14 tablet
--- NOTE | 2018-08-10 14:24 | XRAY ---
Indication: Patient claims . History tubal ligation. Two-dimensional transabdominal early OB or some performed. Comparison: None Urinary bladder is not adequately distended producing poor acoustic window. Uterus anteverted without intrauterine gestational sac, pole, or heart tones. Endometrial stripe measures 6.6 mm. No endometrial cavity mass or fluid collection. Left and right ovaries not seen. No suspicious adnexal mass or free fluid. Impression: 1. No sonographic evidence for intrauterine or ectopic . Patient refused transvaginal sonogram. Correlate with serial beta hCG and follow-up sonogram regarding viability. 2. Remaining transabdominal pelvic sonogram limited and unremarkable.
[2018-08-10 14:30] LABS: Barbiturate,Urine NEGATIVE (NEGATIVE); Benzodiazepine,Urine NEGATIVE (NEGATIVE); Cocaine,Urine NEGATIVE (NEGATIVE); Methadone,Urine NEGATIVE (NEGATIVE); PCP,Urine NEGATIVE (NEGATIVE); THC,Urine POSITIVE (NEGATIVE)
[2018-08-10 14:34] LABS: Amphetamine,Urine NEGATIVE (NEGATIVE)
[2018-08-10 14:35] LABS: Opiate,Urine NEGATIVE (NEGATIVE)
[2018-08-10 14:59] LABS: ALBUMIN 4.3 g/dL (3.5-5.0); ALKALINE PHOSPHATASE 155 U/L (38-126); ANION GAP 11.9 MEQ/L (5-15); BLOOD UREA NITROGEN 8 mg/dL (7-17); CHLORIDE 105 mmol/L (98-107); Calcium 9.4 mg/dL (8.4-10.2); Carbon Dioxide 26 mmol/L (22-30); Creatinine 1 0.55 mg/dL (0.52-1.04); Glucose 93 mg/dL (74-106); HCG, Quantitative (Inhouse) < 2.39 mIU/ml; SGOT/AST 26 U/L (14-36); SGPT/ALT 36 U/L (0-35); SODIUM 139 mmol/L (137-145); Total Protein 8.2 g/dL (6.3-8.2)
[2018-08-10 18:57] VITALS: BP 130/79; PULSE 74
== END 2018-08-10 15:52 | disposition home or self-care (01) ==
LOC: OB 12:41
PROVIDERS: ADMIT Family Medicine; ATTEND Family Medicine
DX: R10.9 Unspecified abdominal pain (principal)
CPT/HCPCS: 36415; 76856; 80053; 80307; 84702; 85025; G0378

== ENCOUNTER 2018-12-24 17:19 | Emergency (ER) | payer OTHER ==
[2018-12-24] MEDS ORDERED: Sodium Chloride 0.9% 1000 ML 1,000 ML IV STA (17:25)
--- NOTE | 2018-12-24 17:25 | ERPHSYRPT ---
- History of Present Illness Time Seen by Provider: 12/24/18 17:25 Source: patient, EMS Exam Limitations: clinical condition Physician History: 43 y/o white female presents to ED via ems for weakness, possible overheating and change in mental status. pt has known mental illness, but also has h/o htn and cardiac issues. pt stated she fell yesterday. she states right forearm and right upper leg and hip hurts. Allergies/Adverse Reactions: Penicillins Allergy (Severe, Verified 02/27/18 10:05) EYES, THROAT SWELLS povidone-iodine [From Betadine] Allergy (Severe, Verified 02/27/18 10:05) Hives soap [From Betadine] Allergy (Intermediate, Verified 02/27/18 10:05) Hives Sulfa (Sulfonamide Antibiotics) Allergy (Intermediate, Verified 02/27/18 10:05) Hives venom-honey bee [bee venom (honey bee)] Allergy (Verified 02/27/18 10:05) Home Medications: Diazepam [Valium] 5 mg PO DAILY 06/30/17 [History] Pregabalin [Lyrica] 25 mg PO DAILY 06/30/17 [History] Lisinopril/Hydrochlorothiazide [Lisinopril-Hctz 10-12.5 mg Tab] 1 tab PO DAILY 12/24/18 [History] Hx Tetanus, Diphtheria Vaccination/Date Given: Yes ([place]) Hx Influenza Vaccination/Date Given: No Hx Pneumococcal Vaccination/Date Given: No - Past Medical History Pertinent Past Medical History: Yes Neurological History: No Pertinent History ENT History: No Pertinent History Cardiac History: No Pertinent History Respiratory History: COPD Endocrine Medical History: No Pertinent History Musculoskeletal History: Degenerative Disk Disease, Other GI Medical History: No Pertinent History History: No Pertinent History Psycho-Social History: Bipolar, Depression, Panic Disorder, Other Female Reproductive Disorders: No Pertinent History Other Medical History: SLEEP APNEA - Past Surgical History Past Surgical History: Yes Neuro Surgical History: No Pertinent History Cardiac: No Pertinent History Respiratory: No Pertinent History Gastrointestinal: No Pertinent History Genitourinary: No Pertinent History Musculoskeletal: No Pertinent History Female Surgical History: No Pertinent History Other Surgical History: D/C - Social History Smoking Status: Current every day smoker How long have you smoked: 20 Exposure to second hand smoke: Yes Drug Use: none Patient Lives Alone: No - Nursing Vital Signs Nursing Vital Signs: Initial Vital Signs Temperature 99.0 F 12/24/18 17:20 Pulse Rate 89 12/24/18 17:20 Respiratory Rate 18 12/24/18 17:20 Blood Pressure 115/73 12/24/18 17:20 O2 Sat by Pulse Oximetry 100 12/24/18 17:20 Pain Scale Pain Intensity 10 - Course Nursing assessment & vital signs reviewed: Yes EKG Interpreted by Me: RATE (90), Sinus Rhythm, NORMAL AXIS, Non-specific ST Changes, Other (no change from comparison ekg dated 02/27/18) Ordered Tests: Active Orders 24 hr Category Date Time Status Wastewater Project Manager STAT Care 12/24/18 17:26 Active Clean Catch Urine Specimen STAT Care 12/24/18 17:25 Active EKG-ER Only STAT Care 12/24/18 17:25 Active CHEST 1 VIEW (PORTABLE) Stat Exams 12/24/18 19:59 Taken FEMUR Stat Exams 12/24/18 17:34 Taken FOREARM Stat Exams 12/24/18 17:34 Taken HEAD WITHOUT CONTRAST [CT] Stat Exams 12/24/18 19:17 Taken HIP UNI (2V) INCL PEL IF DONE Stat Exams 12/24/18 17:34 Taken ACETAMINOPHEN Stat Lab 12/24/18 17:40 Completed CBC W DIFF Stat Lab 12/24/18 17:40 Completed CMP Stat Lab 12/24/18 17:40 Completed CULTURE,URINE Stat Lab 12/24/18 18:15 Received ETHYL ALCOHOL Stat Lab 12/24/18 17:40 Completed HCG,QUALITATIVE URINE Stat Lab 12/24/18 18:15 Completed SALICYLATE Stat Lab 12/24/18 17:40 Completed UA W/RFX UR CULTURE Stat Lab 12/24/18 18:15 Completed Urine Triage Profile Stat Lab 12/24/18 18:15 Received Medication Summary Generic Name Dose Route Start Last Admin Trade Name Freq PRN Reason Stop Dose Admin Levofloxacin/Dextrose 750 mg in 150 mls @ 100 mls/hr 12/24/18 19:18 12/24/18 19:35 Levofloxacin 750mg/150ml D5w IV 12/24/18 20:47 100 ml/hr STAT STA 100 mls/hr Administration Discontinued Medications Generic Name Dose Route Start Last Admin Trade Name Freq PRN Reason Stop Dose Admin Acetaminophen Confirm 12/24/18 20:02 Tylenol 325 Mg Administered 12/24/18 20:03 Dose 650 mg .ROUTE .STK-MED ONE Sodium Chloride 1,000 mls @ 999 mls/hr 12/24/18 17:25 12/24/18 18:35 Sodium Chloride 0.9% 1000 Ml IV 12/24/18 18:25 Infused .Q1H1M STA Infusion Sodium Chloride Confirm 12/24/18 17:33 Sodium Chloride 0.9% 1000 Ml Administered 12/24/18 17:34 Dose 1,000 mls @ ud .ROUTE .STK-MED ONE Levofloxacin/Dextrose Confirm 12/24/18 19:29 Levofloxacin 750mg/150ml D5w Administered 12/24/18 19:30 Dose 750 mg in 150 mls @ ud IV .STK-MED ONE Lab/Rad Data: Laboratory Result Diagrams 12/24/18 17:40 12/24/18 17:40 Laboratory Results 12/24/18 12/24/18 12/24/18 Range/Units 18:15 18:15 17:40 WBC (4.0-10.5) K/mm3 RBC (4.1-5.4) M/mm3 Hgb (12.0-16.0) gm/dl Hct (35-47) % MCV (78-100) fl MCH (26-32) pg MCHC (32-36) g/dl RDW (11.5-14.0) % Plt Count (150-450) K/mm3 MPV (6-9.5) fl Gran % (36.0-66.0) % Eos # (Auto) (0-0.5) Absolute Lymphs (auto) (1.0-4.6) Absolute Monos (auto) (0.0-1.3) Lymphocytes % (24.0-44.0) % Monocytes % (0.0-12.0) % Eosinophils % (0.00-5.0) % Basophils % (0.0-0.4) % Absolute Granulocytes (1.4-6.9) Basophils # (0-0.4) Sodium 139 (137-145) mmol/L Potassium 3.9 (3.5-5.1) mmol/L Chloride 108 H (98-107) mmol/L Carbon Dioxide 20 L (22-30) mmol/L Anion Gap 14.8 (5-15) MEQ/L BUN 19 H (7-17) mg/dL Creatinine 1.17 H (0.52-1.04) mg/dL Estimated GFR 53.2 ML/MIN Glucose 97 (74-106) mg/dL Calcium 9.6 (8.4-10.2) mg/dL Total Bilirubin 0.60 (0.2-1.3) mg/dL AST 25 (14-36) U/L ALT 28 (0-35) U/L Alkaline Phosphatase 129 H (38-126) U/L Serum Total Protein 8.5 H (6.3-8.2) g/dL Albumin 4.5 (3.5-5.0) g/dL Urine Color YELLOW (YELLOW) Urine Appearance CLOUDY (CLEAR) Urine pH 5.0 (5-6) Ur Specific [place] 1.011 (1.005-1.025) Urine Protein 30 (Negative) Urine Ketones TRACE (NEGATIVE) Urine Blood NEGATIVE (0-5) Noel/ul Urine Nitrite NEGATIVE (NEGATIVE) Urine Bilirubin NEGATIVE (NEGATIVE) Urine Urobilinogen NEGATIVE (0-1) mg/dL Ur Leukocyte Esterase NEGATIVE (NEGATIVE) Urine WBC (Auto) 6-10 (0-5) /HPF Urine RBC (Auto) 0-2 (0-2) /HPF U Hyaline Cast (Auto) 11-25 (0-2) /LPF U Epithel Cells (Auto) RARE (FEW) /HPF Urine Bacteria (Auto) RARE (NEGATIVE) /HPF Unidentified Crystals 2-5 (NEGATIVE) /HPF Amorphous Crystals FEW (NEGATIVE) /HPF Urine Mucus (Auto) SLIGHT (NEGATIVE) /HPF Urine Culture Reflexed YES (NO) Urine Glucose NEGATIVE (NEGATIVE) mg/dL Urine HCG, Qual NEGATIVE (Negative) Salicylates < 1.0 L (2-20) mg/dL Acetaminophen < 10 L (10-30) ug/ml Ethyl Alcohol < 10 (0-10) mg/dL 12/24/ Range/Units 17:40 WBC 14.3 H (4.0-10.5) K/mm3 RBC 4.95 (4.1-5.4) M/mm3 Hgb 14.9 (12.0-16.0) gm/dl Hct 45.5 (35-47) % MCV 91.9 (78-100) fl MCH 30.1 (26-32) pg MCHC 32.7 (32-36) g/dl RDW 14.9 H (11.5-14.0) % Plt Count 505 H (150-450) K/mm3 MPV 10.1 H (6-9.5) fl Gran % 61.7 (36.0-66.0) % Eos # (Auto) 0.08 (0-0.5) Absolute Lymphs (auto) 3.50 (1.0-4.6) Absolute Monos (auto) 1.87 H (0.0-1.3) Lymphocytes % 24.5 (24.0-44.0) % Monocytes % 13.1 H (0.0-12.0) % Eosinophils % 0.6 (0.00-5.0) % Basophils % 0.1 (0.0-0.4) % Absolute Granulocytes 8.82 H (1.4-6.9) Basophils # 0.02 (0-0.4) Sodium (137-145) mmol/L Potassium (3.5-5.1) mmol/L Chloride (98-107) mmol/L Carbon Dioxide (22-30) mmol/L Anion Gap (5-15) MEQ/L BUN (7-17) mg/dL Creatinine (0.52-1.04) mg/dL Estimated GFR ML/MIN Glucose (74-106) mg/dL Calcium (8.4-10.2) mg/dL Total Bilirubin (0.2-1.3) mg/dL AST (14-36) U/L ALT (0-35) U/L Alkaline Phosphatase (38-126) U/L Serum Total Protein (6.3-8.2) g/dL Albumin (3.5-5.0) g/dL Urine Color (YELLOW) Urine Appearance (CLEAR) Urine pH (5-6) Ur Specific [place] (1.005-1.025) Urine Protein (Negative) Urine Ketones (NEGATIVE) Urine Blood (0-5) Noel/ul Urine Nitrite (NEGATIVE) Urine Bilirubin (NEGATIVE) Urine Urobilinogen (0-1) mg/dL Ur Leukocyte Esterase (NEGATIVE) Urine WBC (Auto) (0-5) /HPF Urine RBC (Auto) (0-2) /HPF U Hyaline Cast (Auto) (0-2) /LPF U Epithel Cells (Auto) (FEW) /HPF Urine Bacteria (Auto) (NEGATIVE) /HPF Unidentified Crystals (NEGATIVE) /HPF Amorphous Crystals (NEGATIVE) /HPF Urine Mucus (Auto) (NEGATIVE) /HPF Urine Culture Reflexed (NO) Urine Glucose (NEGATIVE) mg/dL Urine HCG, Qual (Negative) Salicylates (2-20) mg/dL Acetaminophen (10-30) ug/ml Ethyl Alcohol (0-10) mg/dL - Progress Progress: improved, pain not gone completely, re-examined Progress Note: 12/24/18 19:12 pts family and friends state she looks a lot better and her speech is at baseline. xrays of right forearm, hip and femur are negative for acute fx or dislocation ct head negative for acute intracranial process. 12/24/18 20:10 cxr-right basilar infiltrate Counseled pt/family regarding: lab results, diagnosis, need for follow-up, rad results - Departure Departure Disposition: Home Clinical Impression: Right pulmonary infiltrate on CXR Condition: Stable Critical Care Time: No Referrals: HANNAH MASON MD [Primary Care Provider] - Additional Instructions: drink plenty of fluids. take medications as prescribed. follow up with primary doctor for further management Prescriptions: Azithromycin 250 mg [Zithromax 250 MG TABLET] 250 mg PO ZPACK #6 tablet
[2018-12-24] MEDS ORDERED: Sodium Chloride 0.9% 1000 ML 1,000 ML ONE (17:33)
[2018-12-24 17:47] LABS: BASOPHIL % 0.1 % (0.0-0.4); Basophil (Absolute #) 0.02 (0-0.4); Eosinophil % 0.6 % (0.00-5.0); Eosinophil (Absolute #) 0.08 (0-0.5); Granulocyte Absolute (ANC) 8.82 (1.4-6.9); Granulocytes % 61.7 % (36.0-66.0); Hematocrit 45.5 % (35-47); Hemoglobin 14.9 gm/dl (12.0-16.0); Lymphocytes % 24.5 % (24.0-44.0); Mean Cell Volume 91.9 fl (78-100); Mean Corpuscular Hemoglobin 30.1 pg (26-32); Mean Corpuscular Hgb Concent. 32.7 g/dl (32-36); Mean Platelet Volume 10.1 fl (6-9.5); Monocyte (Absolute #) 1.87 (0.0-1.3); Monocytes % 13.1 % (0.0-12.0); Platelet Count 505 K/mm3 (150-450); Red Blood Count 4.95 M/mm3 (4.1-5.4); Red Cell Distribution Width 14.9 % (11.5-14.0); White Blood Count 14.3 K/mm3 (4.0-10.5)
[2018-12-24 17:56] LABS: ALBUMIN 4.5 g/dL (3.5-5.0); ALKALINE PHOSPHATASE 129 U/L (38-126); ANION GAP 14.8 MEQ/L (5-15); BLOOD UREA NITROGEN 19 mg/dL (7-17); CHLORIDE 108 mmol/L (98-107); Calcium 9.6 mg/dL (8.4-10.2); Carbon Dioxide 20 mmol/L (22-30); Creatinine 1 1.17 mg/dL (0.52-1.04); Glucose 97 mg/dL (74-106); Potassium 3.9 mmol/L (3.5-5.1); SGOT/AST 25 U/L (14-36); SGPT/ALT 28 U/L (0-35); SODIUM 139 mmol/L (137-145); Total Protein 8.5 g/dL (6.3-8.2)
[2018-12-24 18:03] LABS: ACETAMINOPHEN < 10 ug/ml (10-30); ETHYL ALCOHOL < 10 mg/dL (0-10); SALICYLATE < 1.0 mg/dL (2-20)
[2018-12-24] MEDS ORDERED: LEVOFLOXACIN 750MG/150ML D5W 750 MG/150 ML BAG IV STA (19:18)
[2018-12-24] MEDS ORDERED: LEVOFLOXACIN 750MG/150ML D5W 750 MG/150 ML BAG IV ONE (19:29)
[2018-12-24 19:48] LABS: Amourphous Crystal FEW /HPF (NEGATIVE); Appearance CLOUDY (CLEAR); Bacteria RARE /HPF (NEGATIVE); Bilirubin NEGATIVE (NEGATIVE); Blood NEGATIVE Ery/ul (0-5); Epithelial Cells RARE /HPF (FEW); Glucose NEGATIVE (NEGATIVE); Ketones TRACE (NEGATIVE); Leukocyte Esterase NEGATIVE (NEGATIVE); Mucus SLIGHT /HPF (NEGATIVE); Nitrite NEGATIVE (NEGATIVE); Protein,Urine Dip 30 (Negative); RBC 0-2 /HPF (0-2); Specific Gravity 1.011 (1.005-1.025); Urobilinogen NEGATIVE mg/dL (0-1)
[2018-12-24 20:01] LABS: Amphetamine,Urine NEGATIVE (NEGATIVE); Barbiturate,Urine NEGATIVE (NEGATIVE); Benzodiazepine,Urine NEGATIVE (NEGATIVE); Cocaine,Urine NEGATIVE (NEGATIVE); Methadone,Urine NEGATIVE (NEGATIVE); PCP,Urine NEGATIVE (NEGATIVE); THC,Urine POSITIVE (NEGATIVE)
[2018-12-24] MEDS ORDERED: TYLENOL 325 MG ONE (20:02)
[2018-12-24] MEDS ORDERED: TYLENOL 325 MG PO ONE (20:10)
[2018-12-24 20:12] LABS: Opiate,Urine NEGATIVE (NEGATIVE)
[2018-12-24 21:34] VITALS: BP 110/81; PULSE 87; O2SAT 94
--- NOTE | 2018-12-25 08:58 | XRAY ---
Indication: Weakness. Altered mental status. Multiple contiguous axial images obtained through the head without contrast. Comparison: February 27, 2018. Again normal appearing brain parenchyma, ventricles, and bony calvarium. Visualized paranasal sinuses and mastoid air cells are clear. Impression: Continued stable normal CT head without contrast exam. CT DI 69.52
--- NOTE | 2018-12-25 09:03 | XRAY ---
Indication: Pain following fall. Comparison: None 2 views of the right forearm obtained. No bony, articular, or soft tissue abnormalities.
--- NOTE | 2018-12-25 09:05 | XRAY ---
Indication: Pain following fall. Comparison: None 2 views of the right femur obtained. No bony, articular, or soft tissue abnormalities.
--- NOTE | 2018-12-25 09:05 | XRAY ---
Indication: Pain following fall. Comparison: None 2 views of the right hip obtained. No bony, articular, or soft tissue abnormalities.
--- NOTE | 2018-12-25 09:17 | XRAY ---
Indication: Status post fall. Comparison: May 08, 2015. Portable chest demonstrates new right infrahilar infiltrate versus atelectasis, left base discoid atelectasis/scarring, and borderline cardiomegaly. Remaining heart, lungs, and bony thorax unremarkable. Comment: Above cardiopulmonary findings not reported on preliminary interpretation by the ER clinician. Telephone report given to Dr. Moore in the ER at 0911 hours on December 25, 2018.
== END 2018-12-24 21:10 | disposition home or self-care (01) ==
LOC: ED 17:19
DX: R91.8 Other nonspecific abnormal finding of lung field (principal); I10 Essential (primary) hypertension; M25.551 Pain in right hip; M79.604 Pain in right leg; M79.631 Pain in right forearm; J44.9 Chronic obstructive pulmonary disease, unspecified; Z79.899 Other long term (current) drug therapy; F31.9 Bipolar disorder, unspecified; G47.30 Sleep apnea, unspecified
CPT/HCPCS: 36415; 51702; 70450; 71045; 73090; 73502; 73552; 80053; 80307; 81001; 84703; 85025; 87086; 93005; 93041; 96360; 96365; 99285; G0481; 96374; J1956; A9270-GY; G0480

== ENCOUNTER 2020-02-20 10:33 | Observation (INO) | payer OTHER ==
--- NOTE | 2020-02-20 10:41 | ERPHSYRPT ---
- History of Present Illness Time Seen by Provider: 02/20/20 10:41 Source: patient Exam Limitations: no limitations Physician History: This is a morbidly obese 45-year-old white female with a history of hypertension and cardiac issues as well as mental issues who presents with 1-1/2 days of worsening shortness of breath and mild associated chest pain. Patient states h er chest pain is vaguely present and non-radiating. Patient states she has been in bed for 1-1/2 weeks feeling poorly. Patient has chronic headache and she states that she fell yesterday and hurt her back at the level of her thoracic spine. Patient has chronic back pain issues. Patient has not seen her primary care doctor, Dr. Mason in several months. Timing/Duration: day(s) (Worsened in the last day and a half), week(s) (1-1/2), worse Activities at Onset: none Severity of Dyspnea-Max: mild Severity of Dyspnea-Current: mild Possible Cause: occasional episodes Modifying Factors: Improves With: nothing Associated Symptoms: anxiety, chest pain/discomfort (Vague), weakness, No dizziness, No heaviness Allergies/Adverse Reactions: Penicillins Allergy (Severe, Verified 02/20/20 10:42) EYES, THROAT SWELLS povidone-iodine [From Betadine] Allergy (Severe, Verified 02/20/20 10:42) Hives soap [From Betadine] Allergy (Intermediate, Verified 02/20/20 10:42) Hives Sulfa (Sulfonamide Antibiotics) Allergy (Intermediate, Verified 02/20/20 10:42) Hives venom-honey bee [bee venom (honey bee)] Allergy (Verified 02/20/20 10:42) Home Medications: Pregabalin [Lyrica] 25 mg PO DAILY 06/30/17 [History] Lisinopril/Hydrochlorothiazide [Lisinopril-Hctz 10-12.5 mg Tab] 1 tab PO DAILY 12/24/18 [History] Hx Tetanus, Diphtheria Vaccination/Date Given: Yes ([place]) Hx Influenza Vaccination/Date Given: No Hx Pneumococcal Vaccination/Date Given: No Travel Risk - International Travel Have you traveled outside of the country in past 3 weeks: No - Coronavirus Screening Are you exhibiting any of the following symptoms?: No Close contact with a COVID-19 positive Pt in past 14-21 Days: No - Review of Systems Constitutional: Weakness Eyes: No Symptoms Ears, Nose, & Throat: No Symptoms Respiratory: Dyspnea Cardiac: Chest Pain (Mild) Abdominal/Gastrointestinal: No Symptoms Genitourinary Symptoms: No Symptoms Musculoskeletal: Back Pain, Fall Skin: No Symptoms Neurological: Headache Psychological: No Symptoms Endocrine: No Symptoms Hematologic/Lymphatic: No Symptoms Immunological/Allergic: No Symptoms All Other Systems: Reviewed and Negative - Past Medical History Pertinent Past Medical History: Yes Neurological History: No Pertinent History ENT History: No Pertinent History Cardiac History: No Pertinent History Respiratory History: COPD Endocrine Medical History: No Pertinent History Musculoskeletal History: Degenerative Disk Disease, Other GI Medical History: No Pertinent History History: No Pertinent History Psycho-Social History: Bipolar, Depression, Panic Disorder, Other Female Reproductive Disorders: No Pertinent History Other Medical History: SLEEP APNEA - Past Surgical History Past Surgical History: Yes Neuro Surgical History: No Pertinent History Cardiac: No Pertinent History Respiratory: No Pertinent History Gastrointestinal: No Pertinent History Genitourinary: No Pertinent History Musculoskeletal: No Pertinent History Female Surgical History: No Pertinent History Other Surgical History: D/C - Social History Smoking Status: Current every day smoker How long have you smoked: 20 Exposure to second hand smoke: Yes Drug Use: none Patient Lives Alone: No - Nursing Vital Signs Nursing Vital Signs: Initial Vital Signs Pulse Rate 88 02/20/20 10:34 Respiratory Rate 17 02/20/20 10:34 O2 Sat by Pulse Oximetry 96 02/20/20 10:34 Pain Scale Pain Intensity 9 - Physical Exam General Appearance: no apparent distress, alert, anxiety, obese Eye Exam: PERRL/EOMI, eyes nml inspection Ears, Nose, Throat Exam: hearing grossly normal Neck Exam: normal inspection, non-tender, supple, full range of motion Respiratory Exam: normal breath sounds, chest tenderness, lungs clear, airway intact, No respiratory distress Cardiovascular/Chest Exam: normal heart sounds, regular rate/rhythm, normal peripheral pulses Abdominal/Gastrointestinal Exam: soft, normal bowel sounds, No tenderness Rectal Exam: not done Extremity Exam: non-tender, normal range of motion, normal inspection, normal capillary refill, no calf tenderness, no pedal edema Neurologic Exam: alert, oriented x 3, cooperative, reel repairer II-XII nml as tested, nml cerebellar function, nml station & gait, sensation nml Skin Exam: normal color, warm, dry Lymphatic Exam: No adenopathy SpO2 Interpretation: normal O2 Delivery: Room Air - Course Nursing assessment & vital signs reviewed: Yes EKG Interpreted by Me: RATE (79), Sinus Rhythm, NORMAL AXIS, NORMAL INTERVALS, NORMAL QRS, Other (There are no acute ischemic changes on this EKG. There are no changes from EKG dated December 24, 2018) Ordered Tests: Active Orders 24 hr Category Date Time Status EKG-ER Only STAT Care 02/20/20 11:09 Active IV Insertion STAT Care 02/20/20 11:07 Active Pulse Oximetry (ED) STAT Care 02/20/20 11:07 Active CHEST 2 VIEWS (PA AND LAT) Stat Exams 02/20/20 11:08 Taken CBC W DIFF Stat Lab 02/20/20 11:35 Completed CMP Stat Lab 02/20/20 11:35 Completed D-DIMER QUANTITATIVE Stat Lab 02/20/20 11:35 Completed Lactic Acid Stat Lab 02/20/20 11:07 Completed NT PRO BNP Stat Lab 02/20/20 11:35 Completed PROTIME WITH INR Stat Lab 02/20/20 11:35 Completed TROPONIN Q3H Lab 02/20/20 11:15 Completed TROPONIN Q3H Lab 02/20/20 14:15 Ordered TROPONIN Q3H Lab 02/20/20 17:15 Ordered TROPONIN Q3H Lab 02/20/20 20:15 Ordered TROPONIN Q3H Lab 02/20/20 23:15 Ordered Transfer Order Routine Transfer 02/20/20 Ordered Medication Summary Discontinued Medications Generic Name Dose Route Start Last Admin Trade Name Freq PRN Reason Stop Dose Admin Enoxaparin Sodium 120 mg 02/20/20 13:08 Enoxaparin Sodium SQ 02/20/20 13:09 STAT STA Lab/Rad Data: Laboratory Result Diagrams 02/20/20 11:35 02/20/20 11:35 Laboratory Results 02/20/20 02/20/20 02/20/20 Range/Units 11:45 11:35 11:35 WBC (4.0-10.5) K/mm3 RBC (4.1-5.4) M/mm3 Hgb (12.0-16.0) gm/dl Hct (35-47) % MCV (78-100) fl MCH (26-32) pg MCHC (32-36) g/dl RDW (11.5-14.0) % Plt Count (150-450) K/mm3 MPV (7.5-11.0) fl Gran % (36.0-66.0) % Eos # (Auto) (0-0.5) Absolute Lymphs (auto) (1.0-4.6) Absolute Monos (auto) (0.0-1.3) Lymphocytes % (24.0-44.0) % Monocytes % (0.0-12.0) % Eosinophils % (0.00-5.0) % Basophils % (0.0-0.4) % Absolute Granulocytes (1.4-6.9) Basophils # (0-0.4) PT 12.7 H (9.95-12.35) SECONDS INR 1.12 (0.8-3.0) D-Dimer 3322 H* (215-500) ng/mL Sodium 138 (137-145) mmol/L Potassium 4.1 (3.5-5.1) mmol/L Chloride 106 (98-107) mmol/L Carbon Dioxide 25 (22-30) mmol/L Anion Gap 11.6 (5-15) MEQ/L BUN 13 (7-17) mg/dL Creatinine 0.68 (0.52-1.04) mg/dL Estimated GFR > 60.0 ML/MIN Glucose 100 (74-106) mg/dL Lactic Acid (0.4-2.0) Calcium 9.1 (8.4-10.2) mg/dL Total Bilirubin 0.20 (0.2-1.3) mg/dL AST 30 (14-36) U/L ALT 30 (0-35) U/L Alkaline Phosphatase 115 (38-126) U/L Troponin I (0.000-0.034) ng/mL NT-Pro-B Natriuret Pep 68.0 (0-450) pg/mL Serum Total Protein 7.8 (6.3-8.2) g/dL Albumin 4.1 (3.5-5.0) g/dL Influenza Type A Ag NEGATIVE (NEGATIVE) Influenza Type B Ag NEGATIVE (NEGATIVE) RSV (PCR) NEGATIVE (Negative) 02/20/20 02/20/20 02/20/20 Range/Units 11:35 11:15 11:07 WBC 9.8 (4.0-10.5) K/mm3 RBC 4.65 (4.1-5.4) M/mm3 Hgb 13.8 (12.0-16.0) gm/dl Hct 43.5 (35-47) % MCV 93.5 (78-100) fl MCH 29.7 (26-32) pg MCHC 31.7 L (32-36) g/dl RDW 15.0 H (11.5-14.0) % Plt Count 409 (150-450) K/mm3 MPV 10.2 (7.5-11.0) fl Gran % 51.4 (36.0-66.0) % Eos # (Auto) 0.20 (0-0.5) Absolute Lymphs (auto) 3.39 (1.0-4.6) Absolute Monos (auto) 1.17 (0.0-1.3) Lymphocytes % 34.5 (24.0-44.0) % Monocytes % 11.9 (0.0-12.0) % Eosinophils % 2.0 (0.00-5.0) % Basophils % 0.2 (0.0-0.4) % Absolute Granulocytes 5.06 (1.4-6.9) Basophils # 0.02 (0-0.4) PT (9.95-12.35) SECONDS INR (0.8-3.0) D-Dimer (215-500) ng/mL Sodium (137-145) mmol/L Potassium (3.5-5.1) mmol/L Chloride (98-107) mmol/L Carbon Dioxide (22-30) mmol/L Anion Gap (5-15) MEQ/L BUN (7-17) mg/dL Creatinine (0.52-1.04) mg/dL Estimated GFR ML/MIN Glucose (74-106) mg/dL Lactic Acid 1.1 (0.4-2.0) Calcium (8.4-10.2) mg/dL Total Bilirubin (0.2-1.3) mg/dL AST (14-36) U/L ALT (0-35) U/L Alkaline Phosphatase (38-126) U/L Troponin I < 0.012 (0.000-0.034) ng/mL NT-Pro-B Natriuret Pep (0-450) pg/mL Serum Total Protein (6.3-8.2) g/dL Albumin (3.5-5.0) g/dL Influenza Type A Ag (NEGATIVE) Influenza Type B Ag (NEGATIVE) RSV (PCR) (Negative) - Progress Progress: improved Air Movement: good Progress Note: 02/20/20 12:15 Chest x-ray reveals no evidence of acute pulmonary process 02/20/20 13:06 Medical decision making: This patient has shortness of breath and mild chest pain as well as headache and cough. She has no known exposures to patients with COVID-19. Patient's d-dimer is over 3300. I spoke with Dr. Tinoco. I reviewed the patient history, condition, laboratory work-up, EKG and x-ray findings. We will do a rapid COVID-19 test on her. Patient has true allergy to iodine and therefore we will provide the patient with Lovenox, obtain nuclear medicine material and perform a VQ scan tomorrow. We will meet the patient for observation. Blood Culture(s) Obtained: No Antibiotics given: No Counseled pt/family regarding: lab results, diagnosis, need for follow-up, rad results - Departure Departure Disposition: Observation Clinical Impression: Shortness of breath, Elevated d-dimer, Allergy to iodine Condition: Stable Critical Care Time: No Referrals: HANNAH MASON MD [Primary Care Provider] -
[2020-02-20 11:52] LABS: Absolute Neutrophil Ct (ANC) 5.06 (1.4-6.9); BASOPHIL % 0.2 % (0.0-0.4); Basophil (Absolute #) 0.02 (0-0.4); Hematocrit 43.5 % (35-47); Hemoglobin 13.8 gm/dl (12.0-16.0); Lymphocyte (Absolute #) 3.39 (1.0-4.6); Lymphocytes % 34.5 % (24.0-44.0); Mean Cell Volume 93.5 fl (78-100); Mean Corpuscular Hemoglobin 29.7 pg (26-32); Mean Corpuscular Hgb Concent. 31.7 g/dl (32-36); Mean Platelet Volume 10.2 fl (7.5-11.0); Monocyte (Absolute #) 1.17 (0.0-1.3); Monocytes % 11.9 % (0.0-12.0); Neutrophil % 51.4 % (36.0-66.0); Platelet Count 409 K/mm3 (150-450); Red Blood Count 4.65 M/mm3 (4.1-5.4); White Blood Count 9.8 K/mm3 (4.0-10.5)
[2020-02-20 11:55] LABS: INR 1.12 (0.8-3.0); PROTIME 12.7 SECONDS (9.95-12.35)
[2020-02-20 12:11] LABS: ALBUMIN 4.1 g/dL (3.5-5.0); ALKALINE PHOSPHATASE 115 U/L (38-126); ANION GAP 11.6 MEQ/L (5-15); BLOOD UREA NITROGEN 13 mg/dL (7-17); CHLORIDE 106 mmol/L (98-107); Calcium 9.1 mg/dL (8.4-10.2); Carbon Dioxide 25 mmol/L (22-30); Creatinine 1 0.68 mg/dL (0.52-1.04); EST GLOMERULAR FILTRATION RATE > 60.0 ML/MIN; Glucose 100 mg/dL (74-106); Potassium 4.1 mmol/L (3.5-5.1); SGOT/AST 30 U/L (14-36); SGPT/ALT 30 U/L (0-35); SODIUM 138 mmol/L (137-145); Total Protein 7.8 g/dL (6.3-8.2)
[2020-02-20 12:19] LABS: INFLUENZA A NEGATIVE (NEGATIVE); INFLUENZA B NEGATIVE (NEGATIVE); RESPIRATORY SYNCTIAL VIRUS NEGATIVE (Negative)
[2020-02-20] MEDS ORDERED: ENOXAPARIN SODIUM SQ STA (13:08)
[2020-02-20] MEDS ORDERED: Hydromorphone 1 mg/ml Injection IV ONE (13:36)
[2020-02-20] MEDS ORDERED: Zofran 4 MG/2 ML VIAL IV ONE (13:36)
[2020-02-20] MEDS ORDERED: ENOXAPARIN SODIUM SQ ONE (13:42)
[2020-02-20] MEDS ORDERED: Hydromorphone 1 mg/ml Injection ONE (13:42)
[2020-02-20] MEDS ORDERED: Zofran 4 MG/2 ML VIAL ONE (13:42)
[2020-02-20] MEDS: Sodium Chloride 0.9% 1000 ML 1,000 ML IV SCH (15:34)
[2020-02-20] MEDS: TYLENOL 325 MG PO PRN (15:51)
--- NOTE | 2020-02-20 16:26 | XRAY ---
Indication: Short of breath. Comparison: December 24, 2018. PA/lateral chest again demonstrates right infrahilar infiltrate/atelectasis. Remaining heart, lungs, and bony thorax unremarkable.
[2020-02-20] MEDS ORDERED: ULTRAM 50 MG PO PRN (17:13)
[2020-02-20] MEDS ORDERED: Ventolin Hfa MDI IH SCH (17:15)
[2020-02-20] MEDS: DILAUDID 2 MG INJECTION IV PRN (18:25)
[2020-02-20] MEDS: Zofran 4 MG/2 ML VIAL IV PRN (19:50)
[2020-02-21] MEDS: DILAUDID 2 MG INJECTION IV PRN ×3 (00:04→10:17)
--- NOTE | 2020-02-21 01:11 | PCM.HP ---
History of Present Illness - Chief Complaint Chief Complaint: shortness of breath, elevated d dimer History of Present Illness: is a 45 year old female who presented to ER with shortness of breath .She states not taking any medication but has Hx bipolar depression with panic attacks and is morbidly obese. Work up was negative except for elevated D-dimer. Patient is allergic to IV dye so had to wait for VQ lung scan to be done. Patient was admitted to [facility] for observation. Patient is followed by her PCP in [place] DR Mariann Cevallos @ [phone]. - Review of Systems Constitutional: Fatigue, Other (inability to loose weight) Eyes: No Symptoms Ears, Nose, & Throat: No Symptoms Respiratory: Short Of Breath, Wheezing Cardiac: Edema (chronic swelling and pain in legs ) Abdominal/Gastrointestinal: No Symptoms Genitourinary Symptoms: No Symptoms Musculoskeletal: Arthralgias, Back Pain, Myalgias Skin: No Symptoms Neurological: Other Psychological: Anxiety, Depression (reports Bipolar not taking meds) Endocrine: No Symptoms Hematologic/Lymphatic: Other (see HPI) Medications & Allergies Home Medications: Home Medication List No Reportable Medications [No Reported Medications] 02/20/20 [History Confirmed 02/20/20] Allergies/Adverse Reactions: Allergies Allergy/AdvReac Type Severity Reaction Status Date / Time Penicillins Allergy Severe Verified 02/20/20 10:42 povidone-iodine Allergy Severe Hives Verified 02/20/20 10:42 [From Betadine] soap [From Betadine] Allergy Intermediate Hives Verified 02/20/20 10:42 Sulfa (Sulfonamide Allergy Intermediate Hives Verified 02/20/20 10:42 Antibiotics) venom-honey bee Allergy Verified 02/20/20 10:42 [bee venom (honey bee)] - Past Medical History Past Medical History: Yes Neurological History: No Pertinent History ENT History: No Pertinent History Cardiac History: No Pertinent History Respiratory History: COPD Endocrine Medical History: No Pertinent History Musculoskelatal History: Degenerative Disk Disease, Other GI Medical History: No Pertinent History History: No Pertinent History Pyscho-Social History: Bipolar, Depression, Panic Disorder, Other Reproductive Disorders: No Pertinent History Comment: SLEEP APNEA - Female History Hx Last Menstrual Period: postmenopausal Are you now?: No - Past Surgical History Past Surgical History: Yes Neuro Surgical History: No Pertinent History Cardiac History: No Pertinent History Respiratory Surgery: No Pertinent History GI Surgical History: No Pertinent History Genitourinary Surgical Hx: No Pertinent History Musculskeletal Surgical Hx: No Pertinent History Female Surgical History: No Pertinent History Other Surgical History: D/C - Social History Smoking Status: Current every day smoker How long have you smoked: 30 yrs Exposure to second hand smoke: Yes Alcohol: None Drug Use: none - Physical Exam Vital Signs: Vital Signs - 24 hr Temp Pulse Resp BP Pulse Ox 02/20/20 23:37 98.1 F 71 16 116/57 93 L 02/20/20 20:24 97.9 F 67 16 94/46 93 L 02/20/20 19:55 97.9 F 67 16 94/46 93 L 02/20/20 17:47 95 02/20/20 16:00 97.9 F 72 18 132/66 95 02/20/20 14:55 97.9 F 72 18 132/66 95 02/20/20 14:19 74 18 98/55 94 L 02/20/20 13:57 68 24 94/60 94 L 02/20/20 12:12 74 17 110/82 96 02/20/20 11:34 74 20 116/66 96 02/20/20 11:10 96 02/20/20 10:43 97.7 F 121/65 02/20/20 10:34 88 19 97 General Appearance: moderate distress, anxiety Neurologic Exam: alert, oriented x 3, cooperative Ears, Nose, Throat Exam: moist mucous membranes, other (no nasal discharge) Neck Exam: other (thyroid palpable, nontender) Respiratory Exam: diminished breath sounds Cardiovascular Exam: regular rate/rhythm Gastrointestinal/Abdomen Exam: soft (nontender) Pelvic Exam: not done Rectal Exam: not done Back Exam: muscle spasm (chronic ropey paraspinal mm) Extremity Exam: ivone's sign (right calf notibly larger than left calf), swelling (right calf), tenderness (right calf) Skin Exam: normal color, dry Results - Labs Lab/Micro Results: Lab Results-Last 24 Hours 02/20/20 02/20/20 02/20/20 Range/Units 11:07 11:09 11:15 WBC (4.0-10.5) K/mm3 RBC (4.1-5.4) M/mm3 Hgb (12.0-16.0) gm/dl Hct (35-47) % MCV (78-100) fl MCH (26-32) pg MCHC (32-36) g/dl RDW (11.5-14.0) % Plt Count (150-450) K/mm3 MPV (7.5-11.0) fl Gran % (36.0-66.0) % Eos # (Auto) (0-0.5) Absolute Lymphs (auto) (1.0-4.6) Absolute Monos (auto) (0.0-1.3) Lymphocytes % (24.0-44.0) % Monocytes % (0.0-12.0) % Eosinophils % (0.00-5.0) % Basophils % (0.0-0.4) % Absolute Granulocytes (1.4-6.9) Basophils # (0-0.4) PT (9.95-12.35) SECONDS INR (0.8-3.0) D-Dimer (215-500) ng/mL Sodium (137-145) mmol/L Potassium (3.5-5.1) mmol/L Chloride (98-107) mmol/L Carbon Dioxide (22-30) mmol/L Anion Gap (5-15) MEQ/L BUN (7-17) mg/dL Creatinine (0.52-1.04) mg/dL Estimated GFR ML/MIN Glucose (74-106) mg/dL Lactic Acid 1.1 (0.4-2.0) Calcium (8.4-10.2) mg/dL Total Bilirubin (0.2-1.3) mg/dL AST (14-36) U/L ALT (0-35) U/L Alkaline Phosphatase (38-126) U/L Troponin I < 0.012 (0.000-0.034) ng/mL NT-Pro-B Natriuret Pep (0-450) pg/mL Serum Total Protein (6.3-8.2) g/dL Albumin (3.5-5.0) g/dL Influenza Type A Ag (NEGATIVE) Influenza Type B Ag (NEGATIVE) RSV (PCR) (Negative) SARS-CoV-2 (PCR) NEGATIVE (NEGATIVE) 02/20/20 02/20/20 02/20/20 Range/Units 11:35 11:35 11:35 WBC 9.8 (4.0-10.5) K/mm3 RBC 4.65 (4.1-5.4) M/mm3 Hgb 13.8 (12.0-16.0) gm/dl Hct 43.5 (35-47) % MCV 93.5 (78-100) fl MCH 29.7 (26-32) pg MCHC 31.7 L (32-36) g/dl RDW 15.0 H (11.5-14.0) % Plt Count 409 (150-450) K/mm3 MPV 10.2 (7.5-11.0) fl Gran % 51.4 (36.0-66.0) % Eos # (Auto) 0.20 (0-0.5) Absolute Lymphs (auto) 3.39 (1.0-4.6) Absolute Monos (auto) 1.17 (0.0-1.3) Lymphocytes % 34.5 (24.0-44.0) % Monocytes % 11.9 (0.0-12.0) % Eosinophils % 2.0 (0.00-5.0) % Basophils % 0.2 (0.0-0.4) % Absolute Granulocytes 5.06 (1.4-6.9) Basophils # 0.02 (0-0.4) PT 12.7 H (9.95-12.35) SECONDS INR 1.12 (0.8-3.0) D-Dimer 3322 H* (215-500) ng/mL Sodium 138 (137-145) mmol/L Potassium 4.1 (3.5-5.1) mmol/L Chloride 106 (98-107) mmol/L Carbon Dioxide 25 (22-30) mmol/L Anion Gap 11.6 (5-15) MEQ/L BUN 13 (7-17) mg/dL Creatinine 0.68 (0.52-1.04) mg/dL Estimated GFR > 60.0 ML/MIN Glucose 100 (74-106) mg/dL Lactic Acid (0.4-2.0) Calcium 9.1 (8.4-10.2) mg/dL Total Bilirubin 0.20 (0.2-1.3) mg/dL AST 30 (14-36) U/L ALT 30 (0-35) U/L Alkaline Phosphatase 115 (38-126) U/L Troponin I (0.000-0.034) ng/mL NT-Pro-B Natriuret Pep 68.0 (0-450) pg/mL Serum Total Protein 7.8 (6.3-8.2) g/dL Albumin 4.1 (3.5-5.0) g/dL Influenza Type A Ag (NEGATIVE) Influenza Type B Ag (NEGATIVE) RSV (PCR) (Negative) SARS-CoV-2 (PCR) (NEGATIVE) 02/20/20 02/20/20 02/20/20 Range/Units 11:45 15:48 17:15 WBC (4.0-10.5) K/mm3 RBC (4.1-5.4) M/mm3 Hgb (12.0-16.0) gm/dl Hct (35-47) % MCV (78-100) fl MCH (26-32) pg MCHC (32-36) g/dl RDW (11.5-14.0) % Plt Count (150-450) K/mm3 MPV (7.5-11.0) fl Gran % (36.0-66.0) % Eos # (Auto) (0-0.5) Absolute Lymphs (auto) (1.0-4.6) Absolute Monos (auto) (0.0-1.3) Lymphocytes % (24.0-44.0) % Monocytes % (0.0-12.0) % Eosinophils % (0.00-5.0) % Basophils % (0.0-0.4) % Absolute Granulocytes (1.4-6.9) Basophils # (0-0.4) PT (9.95-12.35) SECONDS INR (0.8-3.0) D-Dimer (215-500) ng/mL Sodium (137-145) mmol/L Potassium (3.5-5.1) mmol/L Chloride (98-107) mmol/L Carbon Dioxide (22-30) mmol/L Anion Gap (5-15) MEQ/L BUN (7-17) mg/dL Creatinine (0.52-1.04) mg/dL Estimated GFR ML/MIN Glucose (74-106) mg/dL Lactic Acid (0.4-2.0) Calcium (8.4-10.2) mg/dL Total Bilirubin (0.2-1.3) mg/dL AST (14-36) U/L ALT (0-35) U/L Alkaline Phosphatase (38-126) U/L Troponin I < 0.012 < 0.012 (0.000-0.034) ng/mL NT-Pro-B Natriuret Pep (0-450) pg/mL Serum Total Protein (6.3-8.2) g/dL Albumin (3.5-5.0) g/dL Influenza Type A Ag NEGATIVE (NEGATIVE) Influenza Type B Ag NEGATIVE (NEGATIVE) RSV (PCR) NEGATIVE (Negative) SARS-CoV-2 (PCR) (NEGATIVE) 02/20/20 02/20/20 Range/Units 20:15 23:10 WBC (4.0-10.5) K/mm3 RBC (4.1-5.4) M/mm3 Hgb (12.0-16.0) gm/dl Hct (35-47) % MCV (78-100) fl MCH (26-32) pg MCHC (32-36) g/dl RDW (11.5-14.0) % Plt Count (150-450) K/mm3 MPV (7.5-11.0) fl Gran % (36.0-66.0) % Eos # (Auto) (0-0.5) Absolute Lymphs (auto) (1.0-4.6) Absolute Monos (auto) (0.0-1.3) Lymphocytes % (24.0-44.0) % Monocytes % (0.0-12.0) % Eosinophils % (0.00-5.0) % Basophils % (0.0-0.4) % Absolute Granulocytes (1.4-6.9) Basophils # (0-0.4) PT (9.95-12.35) SECONDS INR (0.8-3.0) D-Dimer (215-500) ng/mL Sodium (137-145) mmol/L Potassium (3.5-5.1) mmol/L Chloride (98-107) mmol/L Carbon Dioxide (22-30) mmol/L Anion Gap (5-15) MEQ/L BUN (7-17) mg/dL Creatinine (0.52-1.04) mg/dL Estimated GFR ML/MIN Glucose (74-106) mg/dL Lactic Acid (0.4-2.0) Calcium (8.4-10.2) mg/dL Total Bilirubin (0.2-1.3) mg/dL AST (14-36) U/L ALT (0-35) U/L Alkaline Phosphatase (38-126) U/L Troponin I < 0.012 < 0.012 (0.000-0.034) ng/mL NT-Pro-B Natriuret Pep (0-450) pg/mL Serum Total Protein (6.3-8.2) g/dL Albumin (3.5-5.0) g/dL Influenza Type A Ag (NEGATIVE) Influenza Type B Ag (NEGATIVE) RSV (PCR) (Negative) SARS-CoV-2 (PCR) (NEGATIVE) - Radiology Impressions Radiology Exams & Impressions: Radiology Procedures Category Date Time Status CHEST 2 VIEWS (PA AND LAT) Stat Exams 02/20/20 11:08 Completed PULMONARY PERF VENTILATION [NUCMED] Stat Exams 02/21/20 14:44 Ordered VENOUS UNILAT/LIMITED EXTREMIT [US] Stat Exams 02/20/20 19:00 Taken - Other Procedures and Tests Respiratory Therapy 02/20/20 15:34 Smoking Cessation Education ONCE 02/20/20 17:39 Respiratory Therapy Assessment DAILY 02/20/20 17:40 Peak Expiratory Flow Rate ONCE Assessment/Plan (1) Elevated d-dimer Status: Acute Assessment & Plan: negative LE doppler and neg VQ lung scan Code(s): R79.89 - OTHER SPECIFIED ABNORMAL FINDINGS OF BLOOD CHEMISTRY (2) Edema of right lower leg Status: Acute Assessment & Plan: doppler negative for DVT Code(s): R60.0 - LOCALIZED EDEMA (3) Bipolar depression Status: Chronic Assessment & Plan: patient reports Hx bipolar depression and panic attacks but states not taking any meds. Will be following with PCP Dr Mariann Cevallos. Code(s): F31.9 - BIPOLAR DISORDER, UNSPECIFIED
[2020-02-21] MEDS: ENOXAPARIN SODIUM SQ SCH ×2 (02:03→10:25)
[2020-02-21] MEDS ORDERED: VENTOLIN COMMON CANISTER IH SCH (06:00)
[2020-02-21 06:15] LABS: Absolute Neutrophil Ct (ANC) 4.96 (1.4-6.9); BASOPHIL % 0.1 % (0.0-0.4); Basophil (Absolute #) 0.01 (0-0.4); Eosinophil % 1.7 % (0.00-5.0); Eosinophil (Absolute #) 0.17 (0-0.5); Hematocrit 42.6 % (35-47); Hemoglobin 13.1 gm/dl (12.0-16.0); Lymphocyte (Absolute #) 3.43 (1.0-4.6); Lymphocytes % 34.8 % (24.0-44.0); Mean Cell Volume 96.6 fl (78-100); Mean Corpuscular Hemoglobin 29.7 pg (26-32); Mean Corpuscular Hgb Concent. 30.8 g/dl (32-36); Mean Platelet Volume 10.6 fl (7.5-11.0); Monocytes % 13.2 % (0.0-12.0); Neutrophil % 50.2 % (36.0-66.0); Platelet Count 409 K/mm3 (150-450); Red Blood Count 4.41 M/mm3 (4.1-5.4); White Blood Count 9.9 K/mm3 (4.0-10.5)
[2020-02-21 06:36] LABS: ALKALINE PHOSPHATASE 108 U/L (38-126); BLOOD UREA NITROGEN 15 mg/dL (7-17); CHLORIDE 104 mmol/L (98-107); Calcium 8.7 mg/dL (8.4-10.2); Carbon Dioxide 24 mmol/L (22-30); Creatinine 1 0.63 mg/dL (0.52-1.04); EST GLOMERULAR FILTRATION RATE > 60.0 ML/MIN; Glucose 99 mg/dL (74-106); SGOT/AST 20 U/L (14-36); SGPT/ALT 23 U/L (0-35); SODIUM 138 mmol/L (137-145); Total Protein 7.6 g/dL (6.3-8.2)
[2020-02-21] MEDS: Zofran 4 MG/2 ML VIAL IV PRN (07:27)
[2020-02-21] MEDS: TYLENOL 325 MG PO PRN (07:38)
--- NOTE | 2020-02-21 07:55 | XRAY ---
Exam: Right lower extremity duplex Doppler venous ultrasound exam from 02/20/2020. Comparison: None. Indication: 45-year-old female with right leg pain, elevated d-dimer. Findings: Wood scale images, color blood flow images, and Doppler tracings without and with augmentation were obtained throughout the right lower extremity, per routine. Normal transducer compression, color blood flow, and Doppler signal were seen throughout member service representative sections of the right common femoral vein, superficial femoral vein, popliteal vein, and distal posterior tibial veins. Normal color blood flow and Doppler signal were seen within the profunda femoral vein. Normal transducer compression, color blood flow, and Doppler signal were seen within the greater saphenous vein within the proximal right thigh. Impression: 1. No sonographic or Doppler evidence of deep venous thrombosis is seen within the right lower extremity.
[2020-02-21] MEDS ORDERED: VENTOLIN COMMON CANISTER IH PRN (07:56)
--- NOTE | 2020-02-21 11:49 | XRAY ---
Exam: Radionuclide ventilation perfusion lung scan from 02/21/2020. Comparison: Two-view chest from 02/20/2020. Indication: 45-year-old female with elevated d-dimer. Also, shortness of breath and chest pain for one week. Dose: Ventilation scan: 35 mCi of technetium 99m DTPA aerosol. Perfusion scan: 5.7 mCi of technetium 99m MAA IV. Findings: 8 corresponding ventilation and perfusion images were obtained of the lungs in anterior, posterior, right lateral, left lateral, both anterior oblique projections, and both posterior oblique projections. Some of the aerosol was swallowed and is seen within the stomach lumen. Both lung fisher reveal homogeneous uptake of activity. I see no segmental or wedge-shaped defects, V/Q mismatches, or other evidence to suggest acute pulmonary embolus. Impression: 1. The ventilation perfusion lung scan appears essentially normal. The probability of pulmonary embolism is considered very low. Note: Incidentally, previously described infiltrate/atelectasis inferior to the right hilum on the PA chest film from 02/20/2020 might be due to a prominent epicardial fat pad. This is also seen near the left cardiophrenic angle to a lesser degree. CT would be definitive.
[2020-02-21] MEDS: Sodium Chloride 0.9% 1000 ML 1,000 ML IV SCH (12:16)
[2020-02-21 12:26] VITALS: BP 96/53
[2020-02-21 12:58] VITALS: PULSE 72; O2SAT 96
[2020-02-21] MEDS ORDERED: FLUZONE QUAD 2020-2021 SYRINGE IM ONE (13:00)
--- NOTE | 2020-02-21 13:10 | PCM.DCORD ---
- Discharge Disposition: Home, Self-Care Condition: Stable Prescriptions: No Action No Reportable Medications [No Reported Medications] Instructions: Chest Pain (DC) Additional Instructions: PATIENT IS TO FOLLOW UP WITH FAMILY DR. Mariann PUCKETT OUT [facility] Follow up with: DOCTOR,NO FAMILY [Primary Care Provider] - 1 Week Forms: Discharge Instructions
--- NOTE | 2020-02-21 13:13 | PCM.DCORD ---
- Discharge Disposition: Home, Self-Care Condition: Stable Prescriptions: No Action No Reportable Medications [No Reported Medications] Additional Instructions: PATIENT IS TO FOLLOW UP WITH FAMILY DR. Mariann PUCKETT OUT [facility] Follow up with: DOCTOR,NO FAMILY [Primary Care Provider] - 1 Week
== END 2020-02-21 14:03 | disposition home or self-care (01) ==
LOC: ED 10:33 → MED SURG 14:38
PROVIDERS: ADMIT Family Medicine; ATTEND Family Medicine
DX: R79.89 Other specified abnormal findings of blood chemistry (principal); R06.02 Shortness of breath; R79.1 Abnormal coagulation profile; M79.89 Other specified soft tissue disorders; J44.9 Chronic obstructive pulmonary disease, unspecified; G47.30 Sleep apnea, unspecified; R07.9 Chest pain, unspecified; R60.0 Localized edema; R06.2 Wheezing; F17.210 Nicotine dependence, cigarettes, uncomplicated; F31.9 Bipolar disorder, unspecified
CPT/HCPCS: 36000; 36415; 71046; 78582; 80053; 83605; 83880; 84484; 85025; 85379; 85610; 87631; 90686; 93005; 93971; 94640; 94760; 96372; 96374; 96375; 99285; A9540; A9567; G0008; G0378; J1170; J1650; J2405; U0003; A9270-GY

== ENCOUNTER 2020-03-02 09:49 | Emergency (ER) | payer OTHER ==
--- NOTE | 2020-03-02 10:27 | XRAY ---
Exam: AP upright portable chest film from 03/02/2020. Comparison: Two-view chest from 02/20/2020. Indication: Shortness of breath, aches all over. Findings: The transverse heart size appears normal. The patient is noted be large. Lung volumes are borderline decreased. I believe there are small bilateral epicardial fat pads, a bit more prominent on the right than left. Some minimal atelectasis at the lung bases would be difficult to exclude. I see no air space pneumonic infiltrates. No central vascular congestion is seen. There is no pneumothorax or pleural effusion. No acute osseous process is seen. Impression: 1. Inspiratory effort is slightly less than optimal. The patient is noted to be large. I believe there are some small epicardial fat pads at each lung base as well as perhaps some minimal atelectasis. 2. No air space pneumonic infiltrate is seen. No other acute cardiopulmonary disease is seen.
[2020-03-02 10:36] LABS: Absolute Neutrophil Ct (ANC) 4.93 (1.4-6.9); BASOPHIL % 0.2 % (0.0-0.4); Basophil (Absolute #) 0.02 (0-0.4); Eosinophil % 1.6 % (0.00-5.0); Eosinophil (Absolute #) 0.17 (0-0.5); Hematocrit 45.9 % (35-47); Hemoglobin 14.6 gm/dl (12.0-16.0); Lymphocyte (Absolute #) 3.94 (1.0-4.6); Mean Cell Volume 93.7 fl (78-100); Mean Corpuscular Hemoglobin 29.8 pg (26-32); Mean Corpuscular Hgb Concent. 31.8 g/dl (32-36); Mean Platelet Volume 10.2 fl (7.5-11.0); Monocyte (Absolute #) 1.32 (0.0-1.3); Monocytes % 12.7 % (0.0-12.0); Neutrophil % 47.5 % (36.0-66.0); Platelet Count 418 K/mm3 (150-450); Red Cell Distribution Width 15.1 % (11.5-14.0); White Blood Count 10.4 K/mm3 (4.0-10.5)
--- NOTE | 2020-03-02 10:45 | ERPHSYRPT ---
- History of Present Illness Time Seen by Provider: 03/02/20 10:00 Exam Limitations: no limitations Patient Subjective Stated Complaint: pt here for increase sob and pain all over but states pain is worse in head,n/v/d. she states he was dc from this hospital and was told she had a DVT in leg and PE. studies and documentation states that pt does not have a DVT or PE. Triage Nursing Assessment: pt is anxious, alert, has face mask in place, resp easy, skin w/d/p. slight edema to lower legs, no cough Physician History: Patient is a 45-year-old female presents to our ED from respiratory clinic for evaluation of shortness of breath and myalgias. Symptoms have been ongoing for several days. Patient was recently discharged from our hospital. She was ruled out for DVT PE. Patient is currently very anxious. No associated nausea or vomiting. No trauma. No fevers. Symptoms are mild to moderate in intensity. No specific worsening or improving factors. Patient voices no other complaints or concerns at this time. Allergies/Adverse Reactions: Penicillins Allergy (Severe, Verified 03/02/20 10:03) EYES, THROAT SWELLS povidone-iodine [From Betadine] Allergy (Severe, Verified 03/02/20 10:03) Hives soap [From Betadine] Allergy (Intermediate, Verified 03/02/20 10:03) Hives Sulfa (Sulfonamide Antibiotics) Allergy (Intermediate, Verified 03/02/20 10:03) Hives venom-honey bee [bee venom (honey bee)] Allergy (Verified 03/02/20 10:03) Home Medications: No Reportable Medications [No Reported Medications] 02/20/20 [History] Hx Tetanus, Diphtheria Vaccination/Date Given: Yes ([place]) Hx Influenza Vaccination/Date Given: No Hx Pneumococcal Vaccination/Date Given: No Immunizations Up to Date: Yes Travel Risk - International Travel If Yes, where;: N - Coronavirus Screening Close contact with a COVID-19 positive Pt in past 14-21 Days: No - Review of Systems Constitutional: No Symptoms, No Fever, No Chills Eyes: No Symptoms Ears, Nose, & Throat: No Symptoms Respiratory: No Symptoms, No Cough, No Dyspnea Cardiac: No Symptoms, No Chest Pain, No Edema, No Syncope Abdominal/Gastrointestinal: No Symptoms, No Abdominal Pain, No Nausea, No Vomiting, No Diarrhea Genitourinary Symptoms: No Symptoms, No Dysuria Musculoskeletal: No Symptoms, No Back Pain, No Neck Pain Skin: No Symptoms, No Rash Neurological: No Symptoms, No Dizziness, No Focal Weakness, No Sensory Changes Psychological: No Symptoms Endocrine: No Symptoms Hematologic/Lymphatic: No Symptoms Immunological/Allergic: No Symptoms All Other Systems: Reviewed and Negative - Past Medical History Pertinent Past Medical History: Yes Neurological History: No Pertinent History ENT History: No Pertinent History Cardiac History: No Pertinent History Respiratory History: COPD Endocrine Medical History: No Pertinent History Musculoskeletal History: Degenerative Disk Disease, Other GI Medical History: No Pertinent History History: No Pertinent History Psycho-Social History: Bipolar, Depression, Panic Disorder, Other Female Reproductive Disorders: No Pertinent History Other Medical History: SLEEP APNEA - Past Surgical History Past Surgical History: Yes Neuro Surgical History: No Pertinent History Cardiac: No Pertinent History Respiratory: No Pertinent History Gastrointestinal: No Pertinent History Genitourinary: No Pertinent History Musculoskeletal: No Pertinent History Female Surgical History: No Pertinent History Other Surgical History: D/C - Social History Smoking Status: Current every day smoker How long have you smoked: 30 yrs Exposure to second hand smoke: Yes Drug Use: none Patient Lives Alone: No - Female History Hx Last Menstrual Period: post Hx Now: No - Nursing Vital Signs Nursing Vital Signs: Initial Vital Signs Temperature 98.2 F 03/02/20 09:55 Pulse Rate 87 03/02/20 09:55 Respiratory Rate 24 03/02/20 09:55 Blood Pressure 148/104 03/02/20 09:55 O2 Sat by Pulse Oximetry 95 03/02/20 09:55 Pain Scale Pain Intensity 4 - Physical Exam General Appearance: no apparent distress, alert Eye Exam: PERRL/EOMI, eyes nml inspection Ears, Nose, Throat Exam: normal ENT inspection, TMs normal, pharynx normal, moist mucous membranes Neck Exam: normal inspection, non-tender, supple, full range of motion Respiratory Exam: normal breath sounds, lungs clear, No respiratory distress Cardiovascular Exam: regular rate/rhythm, normal heart sounds, normal peripheral pulses Gastrointestinal/Abdomen Exam: soft, normal bowel sounds, No tenderness, No mass Back Exam: normal inspection, normal range of motion, No CVA tenderness, No vertebral tenderness Extremity Exam: normal inspection, normal range of motion, pelvis stable Neurologic Exam: alert, oriented x 3, cooperative, normal mood/affect, nml cerebellar function, nml station & gait, sensation nml, No motor deficits Skin Exam: normal color, warm, dry, No rash Lymphatic Exam: No adenopathy SpO2 Interpretation: normal SpO2: 95 O2 Delivery: Room Air - Course Nursing assessment & vital signs reviewed: Yes EKG Interpreted by Me: RATE (83), Sinus Rhythm, NORMAL AXIS, NORMAL INTERVALS - Radiology Exams Chest X-ray Interpretation: Teleradiologist Report (No airspace pneumonic infiltrate. No other acute cardiopulmonary disease is seen.) Ordered Tests: Active Orders 24 hr Category Date Time Status Plywood And Veneer Repairer STAT Care 03/02/20 10:00 Active EKG-ER Only STAT Care 03/02/20 10:00 Active IV Insertion STAT Care 03/02/20 10:00 Active Pulse Oximetry (ED) STAT Care 03/02/20 10:00 Active House Regular Diet Diet 03/02/20 Dinner Active CHEST 1 VIEW (PORTABLE) Stat Exams 03/02/20 10:00 Completed CBC W DIFF Stat Lab 03/02/20 10:30 Completed CK-Creatinine Phosphokinase Stat Lab 03/02/20 10:30 Received NT PRO BNP Stat Lab 03/02/20 10:30 Received TROPONIN Q3H Lab 03/02/20 16:00 Ordered TROPONIN Q3H Lab 03/02/20 19:00 Ordered TROPONIN Q3H Lab 03/02/20 22:00 Ordered TSH [TSH, 3RD Generation] Stat Lab 03/02/20 13:08 Ordered Medication Summary Discontinued Medications Generic Name Dose Route Start Last Admin Trade Name Freq PRN Reason Stop Dose Admin Droperidol 5 mg 03/02/20 12:30 03/02/20 14:13 Inapsine 5 Mg/2 Ml IV 03/02/20 12:31 5 mg STAT ONE Administration Droperidol Confirm 03/02/20 14:05 Inapsine 5 Mg/2 Ml Administered 03/02/20 14:06 Dose 5 mg .ROUTE .STK-MED ONE Ketorolac Tromethamine 30 mg 03/02/20 12:34 03/02/20 12:37 Toradol 30 Mg Injection IV 03/02/20 12:35 30 mg STAT ONE Administration Ketorolac Tromethamine Confirm 03/02/20 12:36 Toradol 30 Mg Injection Administered 03/02/20 12:37 Dose 30 mg .ROUTE .STK-MED ONE Lab/Rad Data: Laboratory Result Diagrams 03/02/20 10:30 03/02/20 10:30 Laboratory Results 03/02/20 03/02/20 03/02/20 Range/Units 13:00 10:30 10:30 WBC 10.4 (4.0-10.5) K/mm3 RBC 4.90 (4.1-5.4) M/mm3 Hgb 14.6 (12.0-16.0) gm/dl Hct 45.9 (35-47) % MCV 93.7 (78-100) fl MCH 29.8 (26-32) pg MCHC 31.8 L (32-36) g/dl RDW 15.1 H (11.5-14.0) % Plt Count 418 (150-450) K/mm3 MPV 10.2 (7.5-11.0) fl Gran % 47.5 (36.0-66.0) % Eos # (Auto) 0.17 (0-0.5) Absolute Lymphs (auto) 3.94 (1.0-4.6) Absolute Monos (auto) 1.32 H (0.0-1.3) Lymphocytes % 38.0 (24.0-44.0) % Monocytes % 12.7 H (0.0-12.0) % Eosinophils % 1.6 (0.00-5.0) % Basophils % 0.2 (0.0-0.4) % Absolute Granulocytes 4.93 (1.4-6.9) Basophils # 0.02 (0-0.4) Sodium Direct 138 (138-146) mmol/L Potassium 4.1 (3.5-4.9) mmol/L Chloride 102 (98-109) mmol/L Carbon Dioxide 26 (24-29) mmol/L Venous BUN 9 (8-26) mg/dL Creatinine 0.5 L (0.6-1.3) mg/dL Glucose 96 (70-105) mg/dL Ionized Calcium 1.20 (1.12-1.32) mmol/L Troponin 0.01 0.00 (0.00-0.03) ng/mL - Progress Progress: improved Progress Note: 03/02/20 14:43 Patient reassessed. Pain significantly improved. I ordered a CK as well as a TSH. However our labs are unable to process this in a timely fashion as their machines are undergoing maintenance at this time. They still have to run a QC on the laboratory equipment. Patient states she does not want to wait any longer. Patient is requesting discharge at this time. Patient states she will follow-up with Dr. Ortiz within 48 hours for reevaluation. Work-up thus far is essentially nonremarkable. Patient ate a meal in our ED, patient tolerated p.o. Chest x-ray negative for acute pathology. Troponin negative x2. Patient has no chest pain. Her myalgias have resolved. She denies shortness of breath. Vitals are within normal limits. Will discharge home. Patient voices no other complaints or concerns at this time. 03/02/20 14:46 Counseled pt/family regarding: lab results, diagnosis, need for follow-up, rad results - Departure Departure Disposition: Home Clinical Impression: Myalgia, SOB (shortness of breath) Condition: Stable Critical Care Time: No Referrals: DOCTOR,NO FAMILY [Primary Care Provider] - EDA ORTIZ [ACTIVE STAFF] - Additional Instructions: Discharge/Care Plan JANICE AJ was seen on 03/02/20 in the Emergency Room. The patient was counseled regarding Diagnosis,Lab results, Imaging studies, need for follow up and when to return to the Emergency Room. Prescriptions given: Discharge Note I have spoken with the patient and/or caregivers. I have explained the patient's condition, diagnosis and treatment plan based on the information available to me at this time. I have answered the patient's and/or caregiver's questions and addressed any concerns. The patient and/or caregivers have as good understanding of the patient's diagnosis, condition and treatment plan as can be expected at this point. The vital signs have been stable. The patient's condition is stable and appropriate for discharge from the emergency department. The patient will pursue further outpatient evaluation with the primary care physician or other designated or consulting physician as outlined in the kati velazquez instructions. The patient and/or caregivers are agreeable to this plan of care and follow-up instructions have been explained in detail. The patient and/or caregivers have received these instruction. The patient/and or caregivers are aware that any significant change in condition or worsening of symptoms should prompt an immediate return to this or the closest emergency department or call 911.
[2020-03-02 11:04] LABS: ISTAT CREA 0.5 mg/dL (0.6-1.3)
[2020-03-02] MEDS ORDERED: Inapsine 5 MG/2 ML IV ONE (12:30)
[2020-03-02] MEDS ORDERED: TORAdol 30 mg Injection IV ONE (12:34)
[2020-03-02] MEDS ORDERED: TORAdol 30 mg Injection ONE (12:36)
[2020-03-02] MEDS ORDERED: Inapsine 5 MG/2 ML ONE (14:05)
[2020-03-02 14:53] VITALS: BP 120/86; PULSE 80; O2SAT 94
[2020-03-02 15:41] LABS: NT PRO BNP 65.9 pg/mL (0-450)
== END 2020-03-02 14:59 | disposition home or self-care (01) ==
LOC: ED 09:49
DX: M79.10 Myalgia, unspecified site (principal); R06.02 Shortness of breath
CPT/HCPCS: 36415; 71045; 80047; 82550; 83880; 84443; 84484; 85025; 93005; 93041; 94760; 96372; 99284; J1885

== ENCOUNTER 2020-04-19 12:27 | Emergency (ER) | payer OTHER ==
--- NOTE | 2020-04-19 12:50 | ERPHSYRPT ---
- History of Present Illness Historian: patient, EMS Exam Limitations: no limitations Patient Subjective Stated Complaint: Pt states that her medial chest, RUQ and the back of her knee caps hurt for the past 3 days Triage Nursing Assessment: Pt brought to the ER by EMS, skin n/w/d, rates chest, leg and abdominal pain as 8/10, no edema, pulses normal, refused nitro and as pirin in ambulance, lungs clear, S1-S2 sounds heard, doesn't appear to be in any distress Physician History: Patient is a 45-year-old female with history of hypertension, asthma, COPD, neuropathy. Patient is brought in by EMS for chest pain and left leg pain. Both symptoms started about 3 days ago. Worse with movement and touch. Denies any cough or fever or upper respiratory symptoms. She does mention of some shortness of breath due to the pain. Left leg is tender in the back of her calf and in the back of her thigh. Denies any rash or swelling or redness. Patient denies trauma to these areas, fever, GI symptoms. Patient mention she has an appointment with her street light cleaner for stress test in a few weeks. She has not had a cardiac catheterization in the past. However she was given some nitroglycerin in the past. Mentions of having been admitted and been on Lovenox shots for leg pain in the past. She does not know the results of the venous Doppler that they did however when she was discharged after 2 days she was not put on any anticoagulation. Timing/Duration: day(s) (3) Activities at Onset: none Quality: cramping, stabbing Location: central, epigastric, other (anterior chest bilaterally) Chest Pain Radiation: no radiation Severity of Pain-Max: severe Severity of Pain-Current: moderate Modifying Factors: Improves With: movement, palpation Associated Symptoms: headache Prior Chest Pain/Cardiac Workup: angina Nitro Today/Relief: no nitro taken today Aspirin Treatment Today: provided by EMS Allergies/Adverse Reactions: Penicillins Allergy (Severe, Verified 04/19/20 12:39) EYES, THROAT SWELLS povidone-iodine [From Betadine] Allergy (Severe, Verified 04/19/20 12:39) Hives soap [From Betadine] Allergy (Intermediate, Verified 04/19/20 12:39) Hives Sulfa (Sulfonamide Antibiotics) Allergy (Intermediate, Verified 04/19/20 12:39) Hives venom-honey bee [bee venom (honey bee)] Allergy (Verified 04/19/20 12:39) Home Medications: Albuterol/Ipratropium cc [Combivent Inhaler COMMON CANISTER] 15 gm IH UD 04/19/20 [History] Duloxetine HCl 60 mg PO DAILY 04/19/20 [History] Isosorbide Mononitrate 30 mg [Imdur 30 MG] 30 mg PO DAILY 04/19/20 [History] Omeprazole 20 mg PO DAILY 04/19/20 [History] Prazosin HCl 5 mg PO DAILY 04/19/20 [History] risperiDONE [Risperidone] 3 mg PO DAILY 04/19/20 [History] Hx Tetanus, Diphtheria Vaccination/Date Given: Yes ([place]) Hx Influenza Vaccination/Date Given: No Hx Pneumococcal Vaccination/Date Given: No Travel Risk - International Travel Have you traveled outside of the country in past 3 weeks: No - Coronavirus Screening Are you exhibiting any of the following symptoms?: No Close contact with a COVID-19 positive Pt in past 14-21 Days: No - Review of Systems Constitutional: No Fever, No Chills Eyes: No Symptoms Ears, Nose, & Throat: No Symptoms Respiratory: Dyspnea, No Cough Cardiac: Chest Pain, No Edema, No Syncope Abdominal/Gastrointestinal: No Abdominal Pain, No Nausea, No Vomiting, No Diarrhea Genitourinary Symptoms: No Dysuria Musculoskeletal: No Back Pain, No Neck Pain Skin: No Rash Neurological: Headache, No Dizziness, No Focal Weakness, No Sensory Changes Psychological: No Symptoms Endocrine: No Symptoms All Other Systems: Reviewed and Negative - Past Medical History Pertinent Past Medical History: Yes Neurological History: No Pertinent History ENT History: No Pertinent History Cardiac History: No Pertinent History Respiratory History: COPD Endocrine Medical History: No Pertinent History Musculoskeletal History: Degenerative Disk Disease, Other GI Medical History: No Pertinent History History: No Pertinent History Psycho-Social History: Bipolar, Depression, Panic Disorder, Other Female Reproductive Disorders: No Pertinent History Other Medical History: SLEEP APNEA - Past Surgical History Past Surgical History: Yes Neuro Surgical History: No Pertinent History Cardiac: No Pertinent History Respiratory: No Pertinent History Gastrointestinal: No Pertinent History Genitourinary: No Pertinent History Musculoskeletal: No Pertinent History Female Surgical History: No Pertinent History Other Surgical History: D/C - Social History Smoking Status: Current every day smoker How long have you smoked: 30 yrs Exposure to second hand smoke: Yes Drug Use: none Patient Lives Alone: No - Female History Hx Now: No - Nursing Vital Signs Nursing Vital Signs: Initial Vital Signs Temperature 97.9 F 04/19/20 12:30 Pulse Rate 81 04/19/20 12:30 Respiratory Rate 29 H 04/19/20 12:30 Blood Pressure 142/82 04/19/20 12:30 O2 Sat by Pulse Oximetry 94 L 04/19/20 12:30 Pain Scale Pain Intensity 8 - Physical Exam General Appearance: mild distress, alert Eye Exam: PERRL/EOMI, eyes nml inspection Ears, Nose, Throat Exam: normal ENT inspection, moist mucous membranes Neck Exam: normal inspection, non-tender, supple, full range of motion Respiratory Exam: normal breath sounds, chest tenderness (Central, lower anterior chest bilaterally (appears tender in ribs)), lungs clear, No respiratory distress Cardiovascular Exam: regular rate/rhythm, normal heart sounds Gastrointestinal/Abdomen Exam: soft, normal bowel sounds, No tenderness, No mass Back Exam: normal inspection, No CVA tenderness, No vertebral tenderness Extremity Exam: normal inspection, calf tenderness (and posterior thigh tender distally), limited range of motion, No inflammation, No pedal edema, No swelling Neurologic Exam: alert, oriented x 3, cooperative, normal mood/affect, sensation nml, No motor deficits Skin Exam: normal color, warm, dry SpO2 Interpretation: normal SpO2: 94 - Course Nursing assessment & vital signs reviewed: Yes EKG Interpreted by Me: Sinus Rhythm, NORMAL AXIS, NORMAL INTERVALS, Non-specific ST Changes Ordered Tests: Active Orders 24 hr Category Date Time Status Knitted Goods Shaper STAT Care 04/19/20 12:36 Active EKG-ER Only STAT Care 04/19/20 12:35 Active IV Insertion STAT Care 04/19/20 12:35 Active CHEST 2 VIEWS (PA AND LAT) Stat Exams 04/19/20 12:36 Completed VENOUS UNILAT/LIMITED EXTREMIT [US] Stat Exams 04/19/20 15:03 Completed CBC W DIFF Stat Lab 04/19/20 13:40 Completed CK (IN-HOUSE) [CK-Creatinine Phosphokinase] Stat Lab 04/19/20 14:34 Completed CMP Stat Lab 04/19/20 13:40 Completed D-DIMER QUANTITATIVE Stat Lab 04/19/20 13:40 Completed PROTIME WITH INR Stat Lab 04/19/20 13:40 Completed PTT Stat Lab 04/19/20 13:40 Completed TROPONIN Q3H Lab 04/19/20 13:40 Completed TROPONIN Q3H Lab 04/19/20 15:45 Ordered TROPONIN Q3H Lab 04/19/20 18:45 Ordered TROPONIN Q3H Lab 04/19/20 21:45 Ordered TROPONIN Q3H Lab 04/20/20 00:45 Ordered UA W/RFX UR CULTURE Stat Lab 04/19/20 12:38 Ordered Urine Triage Profile Stat Lab 04/19/20 12:36 Ordered Medication Summary Discontinued Medications Generic Name Dose Route Start Last Admin Trade Name Freq PRN Reason Stop Dose Admin Diphenhydramine HCl 50 mg 04/19/20 14:47 04/19/20 15:32 Benadryl 50 Mg/Ml IV 04/19/20 14:48 50 mg STAT ONE Administration Diphenhydramine HCl Confirm 04/19/20 14:53 Benadryl 50 Mg/Ml Administered 04/19/20 14:54 Dose 50 mg .ROUTE .STK-MED ONE Ketorolac Tromethamine 30 mg 04/19/20 14:46 04/19/20 15:32 Toradol 30 Mg Injection IV 04/19/20 14:47 30 mg STAT ONE Administration Ketorolac Tromethamine Confirm 04/19/20 14:53 Toradol 30 Mg Injection Administered 04/19/20 14:54 Dose 30 mg .ROUTE .STK-MED ONE Morphine Sulfate 4 mg 04/19/20 13:06 04/19/20 13:13 Morphine Sulfate 4 Mg Inj IV 04/19/20 13:07 4 mg STAT ONE Administration Morphine Sulfate Confirm 04/19/20 13:12 Morphine Sulfate 4 Mg Inj Administered 04/19/20 13:13 Dose 4 mg .ROUTE .STK-MED ONE Ondansetron HCl 4 mg 04/19/20 13:06 04/19/20 13:13 Zofran 4 Mg/2 Ml Vial IV 04/19/20 13:07 4 mg STAT ONE Administration Ondansetron HCl Confirm 04/19/20 13:12 Zofran 4 Mg/2 Ml Vial Administered 04/19/20 13:13 Dose 4 mg .ROUTE .STK-MED ONE Prochlorperazine Edisylate 10 mg 04/19/20 14:47 04/19/20 15:32 Compazine 10 Mg/2 Ml IV 04/19/20 14:48 10 mg STAT ONE Administration Prochlorperazine Edisylate Confirm 04/19/20 14:54 Compazine 10 Mg/2 Ml Administered 04/19/20 14:55 Dose 10 mg .ROUTE .STK-MED ONE Lab/Rad Data: Laboratory Result Diagrams 04/19/20 13:40 04/19/20 13:40 Laboratory Results 04/19/20 04/19/20 04/19/20 Range/Units 14:34 13:40 13:40 WBC (4.0-10.5) K/mm3 RBC (4.1-5.4) M/mm3 Hgb (12.0-16.0) gm/dl Hct (35-47) % MCV (78-100) fl MCH (26-32) pg MCHC (32-36) g/dl RDW (11.5-14.0) % Plt Count (150-450) K/mm3 MPV (7.5-11.0) fl Gran % (36.0-66.0) % Eos # (Auto) (0-0.5) Absolute Lymphs (auto) (1.0-4.6) Absolute Monos (auto) (0.0-1.3) Lymphocytes % (24.0-44.0) % Monocytes % (0.0-12.0) % Eosinophils % (0.00-5.0) % Basophils % (0.0-0.4) % Absolute Granulocytes (1.4-6.9) Basophils # (0-0.4) PT 13.1 H (9.95-12.35) SECONDS INR 1.16 (0.8-3.0) APTT 31.9 (25.3-37.0) SECONDS D-Dimer 3773 H* (215-500) ng/mL Sodium (137-145) mmol/L Potassium (3.5-5.1) mmol/L Chloride (98-107) mmol/L Carbon Dioxide (22-30) mmol/L Anion Gap (5-15) MEQ/L BUN (7-17) mg/dL Creatinine (0.52-1.04) mg/dL Estimated GFR ML/MIN Glucose (74-106) mg/dL Calcium (8.4-10.2) mg/dL Total Bilirubin (0.2-1.3) mg/dL AST (14-36) U/L ALT (0-35) U/L Alkaline Phosphatase (38-126) U/L Creatine Kinase 48 (30-135) U/L Troponin I < 0.012 (0.000-0.034) ng/mL Serum Total Protein (6.3-8.2) g/dL Albumin (3.5-5.0) g/dL 04/19/20 04/19/20 Range/Units 13:40 13:40 WBC 8.8 (4.0-10.5) K/mm3 RBC 4.61 (4.1-5.4) M/mm3 Hgb 13.9 (12.0-16.0) gm/dl Hct 43.0 (35-47) % MCV 93.3 (78-100) fl MCH 30.2 (26-32) pg MCHC 32.3 (32-36) g/dl RDW 14.7 H (11.5-14.0) % Plt Count 395 (150-450) K/mm3 MPV 10.3 (7.5-11.0) fl Gran % 50.7 (36.0-66.0) % Eos # (Auto) 0.13 (0-0.5) Absolute Lymphs (auto) 2.99 (1.0-4.6) Absolute Monos (auto) 1.22 (0.0-1.3) Lymphocytes % 33.9 (24.0-44.0) % Monocytes % 13.8 H (0.0-12.0) % Eosinophils % 1.5 (0.00-5.0) % Basophils % 0.1 (0.0-0.4) % Absolute Granulocytes 4.47 (1.4-6.9) Basophils # 0.01 (0-0.4) PT (9.95-12.35) SECONDS INR (0.8-3.0) APTT (25.3-37.0) SECONDS D-Dimer (215-500) ng/mL Sodium 138 (137-145) mmol/L Potassium 3.9 (3.5-5.1) mmol/L Chloride 108 H (98-107) mmol/L Carbon Dioxide 26 (22-30) mmol/L Anion Gap 9.0 (5-15) MEQ/L BUN 12 (7-17) mg/dL Creatinine 0.54 (0.52-1.04) mg/dL Estimated GFR > 60.0 ML/MIN Glucose 102 (74-106) mg/dL Calcium 9.2 (8.4-10.2) mg/dL Total Bilirubin 0.30 (0.2-1.3) mg/dL AST 43 H (14-36) U/L ALT 60 H (0-35) U/L Alkaline Phosphatase 125 (38-126) U/L Creatine Kinase (30-135) U/L Troponin I (0.000-0.034) ng/mL Serum Total Protein 7.6 (6.3-8.2) g/dL Albumin 4.0 (3.5-5.0) g/dL - Progress Progress: improved Air Movement: good Progress Note: 04/19/20 14:57 Patient symptoms will do a full work-up. Cardiac work-up including D-dimer. Morphine 4 mg IV. Patient appears very anxious. Discussed elevated D-dimer and given her leg symptoms, I recommended venous Doppler on her left leg. Previous venous Doppler on right leg was negative. Patient's D-dimer is elevated to 3700 which is similar to her previous value in mid-February. Upon patient agreeing to the testing, when the gas plant technician went in the room patient decided she did not want it done anymore. She states that the last time it was done it caused too much pain. I went in to talk to her soon as she refused the test and the patient proceeded to say that she is hurting but no one believes me. I advised her that I believe her and that is why I gave her some for pain and is fully working her up. I also advised her that if she is refusing these tests it is hard for me to know what is going on. She eventually agreed to the Doppler testing but as soon as the tech started the test, patient refused again. While trying to convince patient to get the testing done, patient was very tearful and stated that she is crying because she is in so much pain. Unsure if this is more psychosomatic given that her reaction seems out of normal. We will help her headache which appears tension type with Toradol, Benadryl and Compazine. Feel comfortable giving her anything more for pain especially when I am not sure what I am treating. I also asked if she would like for me to call Dr. Ortiz but she did not feel that would do any good. 04/19/20 15:32 Discussed with Elías who his her friend as well as her guardian. States that there are definitely some mental issues with her and but she has been complaining of some pain. He is not sure if she always tells the truth but is currently taking care of her. He will come by to discuss the case further but I did discuss with him that most likely she will be discharged. 04/19/20 16:10 Patient initially did not want her headache medicine but later on agreed. She received the medicine and feels much better. She is no longer tearful and seems to be less dramatic. Elías, her guardian, is here to talk with her. Will discharge patient home under his care. Blood Culture(s) Obtained: No Antibiotics given: No Counseled pt/family regarding: lab results, diagnosis, need for follow-up, rad results - Departure Departure Disposition: Home Clinical Impression: Myalgia, Headache, Elevated d-dimer, Chest wall pain Condition: Stable Critical Care Time: No Referrals: DOCTOR,NO FAMILY [NON-STAFF PHY W/O PRIVILEGES] - EDA ORTIZ [Primary Care Provider] - Instructions: Costochondritis (DC), Muscle Spasms (DC) Additional Instructions: Monitor symptoms closely. Take medication as provided. Rest. Hydration. Follow-up with Dr. Ortiz in 1 to 2 days for recheck. Return to ER if worse. Prescriptions: Cyclobenzaprine HCl [Flexeril] 10 mg PO TID PRN #12 tablet PRN Reason: Muscle Spasms Naproxen 500 mg [Naprosyn 500 MG] 500 mg PO BID #10 tablet
--- NOTE | 2020-04-19 13:01 | XRAY ---
Indication: Chest pain and short of breath. COPD. Comparison: March 02, 2020. PA/lateral chest demonstrates new lingula infiltrate versus atelectasis. Remaining heart, lungs, and bony thorax unremarkable.
[2020-04-19] MEDS ORDERED: MORPHINE SULFATE 4 MG INJ IV ONE (13:06)
[2020-04-19] MEDS ORDERED: Zofran 4 MG/2 ML VIAL IV ONE (13:06)
[2020-04-19] MEDS ORDERED: MORPHINE SULFATE 4 MG INJ ONE (13:12)
[2020-04-19] MEDS ORDERED: Zofran 4 MG/2 ML VIAL ONE (13:12)
[2020-04-19 13:52] LABS: Absolute Neutrophil Ct (ANC) 4.47 (1.4-6.9); BASOPHIL % 0.1 % (0.0-0.4); Basophil (Absolute #) 0.01 (0-0.4); Eosinophil % 1.5 % (0.00-5.0); Eosinophil (Absolute #) 0.13 (0-0.5); Hemoglobin 13.9 gm/dl (12.0-16.0); Lymphocyte (Absolute #) 2.99 (1.0-4.6); Lymphocytes % 33.9 % (24.0-44.0); Mean Cell Volume 93.3 fl (78-100); Mean Corpuscular Hemoglobin 30.2 pg (26-32); Mean Corpuscular Hgb Concent. 32.3 g/dl (32-36); Mean Platelet Volume 10.3 fl (7.5-11.0); Monocyte (Absolute #) 1.22 (0.0-1.3); Monocytes % 13.8 % (0.0-12.0); Neutrophil % 50.7 % (36.0-66.0); Platelet Count 395 K/mm3 (150-450); Red Blood Count 4.61 M/mm3 (4.1-5.4); Red Cell Distribution Width 14.7 % (11.5-14.0); White Blood Count 8.8 K/mm3 (4.0-10.5)
[2020-04-19 14:02] LABS: INR 1.16 (0.8-3.0); PROTIME 13.1 SECONDS (9.95-12.35)
[2020-04-19 14:04] LABS: PTT 31.9 SECONDS (25.3-37.0)
[2020-04-19 14:05] LABS: ALKALINE PHOSPHATASE 125 U/L (38-126); BLOOD UREA NITROGEN 12 mg/dL (7-17); CHLORIDE 108 mmol/L (98-107); Calcium 9.2 mg/dL (8.4-10.2); Carbon Dioxide 26 mmol/L (22-30); Creatinine 1 0.54 mg/dL (0.52-1.04); EST GLOMERULAR FILTRATION RATE > 60.0 ML/MIN; Glucose 102 mg/dL (74-106); Potassium 3.9 mmol/L (3.5-5.1); SGOT/AST 43 U/L (14-36); SGPT/ALT 60 U/L (0-35); SODIUM 138 mmol/L (137-145); Total Protein 7.6 g/dL (6.3-8.2)
[2020-04-19] MEDS ORDERED: BENADRYL 50 MG/ML ONE (14:53)
[2020-04-19] MEDS ORDERED: TORAdol 30 mg Injection ONE (14:53)
[2020-04-19] MEDS ORDERED: Compazine 10 MG/2 ML ONE (14:54)
[2020-04-19] MEDS: TORAdol 30 mg Injection IV ONE ×2 (14:55→15:32)
[2020-04-19] MEDS: Compazine 10 MG/2 ML IV ONE ×2 (14:55→15:32)
[2020-04-19] MEDS: BENADRYL 50 MG/ML IV ONE ×2 (14:55→15:32)
--- NOTE | 2020-04-19 15:11 | XRAY ---
Indication: Left leg pain. Two-dimensional sonogram and color Doppler imaging of the major venous vessels of the left leg was performed. Comparison: None Manager Business Process notes a uncooperative patient. Patient refused sonogram midway through exam. No thrombus seen in the visualized common femoral, greater saphenous, and mid to proximal femoral veins all demonstrating normal compressibility and normal venous waveforms. Popliteal and lower leg veins not imaged. Impression: Limited exam due to uncooperative patient. No thrombus in the visualized common femoral, greater saphenous, and proximal femoral veins.
[2020-04-19 16:02] VITALS: BP 127/73; PULSE 68
[2020-04-19 16:10] VITALS: O2SAT 94
== END 2020-04-19 16:19 | disposition home or self-care (01) ==
LOC: ED 12:27
DX: R07.9 Chest pain, unspecified (principal); R10.11 Right upper quadrant pain; M79.605 Pain in left leg; R79.1 Abnormal coagulation profile; I10 Essential (primary) hypertension; J45.909 Unspecified asthma, uncomplicated; J44.9 Chronic obstructive pulmonary disease, unspecified; G62.9 Polyneuropathy, unspecified; R51.9 Headache, unspecified; Z79.899 Other long term (current) drug therapy
CPT/HCPCS: 36000; 36415; 71046; 80053; 82550; 84484; 85025; 85379; 85610; 85730; 93005; 93041; 93971; 96374; 96375; 99285; J1200; J1885; J2270; J2405

== ENCOUNTER 2020-07-29 15:20 | Emergency (ER) | payer OTHER ==
[2020-07-29] MEDS ORDERED: Sodium Chloride 0.9% 1000 ML 1,000 ML IV STA (15:26)
[2020-07-29] MEDS ORDERED: Hydromorphone 1 mg/ml Injection IV ONE (15:30)
[2020-07-29] MEDS ORDERED: Sodium Chloride 0.9% 1000 ML 1,000 ML ONE (15:34)
[2020-07-29] MEDS ORDERED: Hydromorphone 1 mg/ml Injection ONE (15:34)
[2020-07-29 15:49] LABS: Absolute Neutrophil Ct (ANC) 6.83 (1.4-6.9); BASOPHIL % 0.1 % (0.0-0.4); Basophil (Absolute #) 0.01 (0-0.4); Eosinophil % 0.9 % (0.00-5.0); Hematocrit 43.7 % (35-47); Hemoglobin 13.6 gm/dl (12.0-16.0); Lymphocyte (Absolute #) 3.41 (1.0-4.6); Lymphocytes % 29.4 % (24.0-44.0); Mean Cell Volume 91.4 fl (78-100); Mean Corpuscular Hemoglobin 28.5 pg (26-32); Mean Corpuscular Hgb Concent. 31.1 g/dl (32-36); Mean Platelet Volume 10.1 fl (7.5-11.0); Monocyte (Absolute #) 1.25 (0.0-1.3); Monocytes % 10.8 % (0.0-12.0); Neutrophil % 58.8 % (36.0-66.0); Platelet Count 426 K/mm3 (150-450); Red Blood Count 4.78 M/mm3 (4.1-5.4); Red Cell Distribution Width 14.9 % (11.5-14.0); White Blood Count 11.6 K/mm3 (4.0-10.5)
[2020-07-29 15:54] LABS: INR 1.31 (0.8-3.0); PROTIME 14.8 SECONDS (9.95-12.35)
[2020-07-29 16:07] LABS: ALBUMIN 4.4 g/dL (3.5-5.0); ALKALINE PHOSPHATASE 164 U/L (38-126); AMYLASE 31 U/L (30-110); ANION GAP 11.4 MEQ/L (5-15); BLOOD UREA NITROGEN 12 mg/dL (7-17); CHLORIDE 100 mmol/L (98-107); Calcium 9.5 mg/dL (8.4-10.2); Carbon Dioxide 26 mmol/L (22-30); Creatinine 1 0.64 mg/dL (0.52-1.04); EST GLOMERULAR FILTRATION RATE > 60.0 ML/MIN; Glucose 102 mg/dL (74-106); LIPASE 49 U/L (23-300); MAGNESIUM 1.9 mg/dL (1.6-2.3); NT PRO BNP 40.7 pg/mL (0-450); Potassium 3.7 mmol/L (3.5-5.1); SGOT/AST 27 U/L (14-36); SGPT/ALT 40 U/L (0-35); SODIUM 134 mmol/L (137-145); Total Protein 8.1 g/dL (6.3-8.2)
[2020-07-29 16:12] LABS: Erythrocyte Sedimentation Rate 26 mm/hr (0-20)
[2020-07-29] MEDS ORDERED: solu-MEDROL 125 MG IV ONE (16:34)
[2020-07-29] MEDS ORDERED: solu-MEDROL 125 MG ONE (16:35)
[2020-07-29] MEDS ORDERED: BENADRYL 50 MG/ML IM ONE (16:35)
[2020-07-29] MEDS ORDERED: BENADRYL 50 MG/ML ONE (16:35)
[2020-07-29 17:10] LABS: Appearance CLOUDY (CLEAR); Bacteria RARE /HPF (NEGATIVE); Bilirubin NEGATIVE (NEGATIVE); Blood NEGATIVE Ery/ul (0-5); Epithelial Cells MODERATE /HPF (FEW); Glucose NEGATIVE (NEGATIVE); Ketones TRACE (NEGATIVE); Leukocyte Esterase TRACE (NEGATIVE); Mucus SLIGHT /HPF (NEGATIVE); Nitrite NEGATIVE (NEGATIVE); Protein,Urine Dip NEGATIVE (Negative); RBC 0-2 /HPF (0-2); Specific Gravity 1.023 (1.005-1.025); Urobilinogen 2 mg/dL (0-1)
[2020-07-29 17:20] LABS: Amphetamine,Urine NEGATIVE (NEGATIVE); Barbiturate,Urine NEGATIVE (NEGATIVE); Benzodiazepine,Urine POSITIVE (NEGATIVE); Cocaine,Urine NEGATIVE (NEGATIVE); Methadone,Urine NEGATIVE (NEGATIVE); Opiate,Urine POSITIVE (NEGATIVE); PCP,Urine NEGATIVE (NEGATIVE); THC,Urine NEGATIVE (NEGATIVE)
--- NOTE | 2020-07-29 18:54 | ERPHSYRPT ---
- History of Present Illness Time Seen by Provider: 07/29/20 15:45 Historian: patient Exam Limitations: no limitations Patient Subjective Stated Complaint: Pt states that her chest has been fluttering since last night, reports it made her fall to the ground twice Triage Nursing Assessment: Pt was brought to the ER by her friend, hypertensive, stated that she didn't really have any chest pain but it was about a 7/10, pulses normal, skin n/w/d, doesn't appear to be in any distress Physician History: Patient is a 45-year-old female who presents with a complaint of palpitations and irregular heartbeat since 7 PM last night. She took a nitroglycerin about 4 to 5 hours prior to arrival which did not affect the fluttery sensation she feels in her chest. She states that she did fall twice last night because of the fluttery feeling in her chest. She had some chest discomfort but not real chest pain. She has risk factors including smoking family history and hypertension she does not know her cholesterol status. She is chronically short of breath she is a smoker no nausea no vomiting no diaphoresis she has had a headache and no appetite. During the time she was in the ER the nurse did note that her symptoms correlated with a PVC on a rhythm strip. Timing/Duration: yesterday Activities at Onset: none Quality: other (Floaters) Location: central Chest Pain Radiation: no radiation Severity of Pain-Max: mild Severity of Pain-Current: mild Modifying Factors: Improves With: nothing Associated Symptoms: palpitations, shortness of breath, weakness Prior Chest Pain/Cardiac Workup: angina Nitro Today/Relief: no nitro taken today Aspirin Treatment Today: no aspirin today Allergies/Adverse Reactions: Penicillins Allergy (Severe, Verified 04/19/20 12:39) EYES, THROAT SWELLS povidone-iodine [From Betadine] Allergy (Severe, Verified 04/19/20 12:39) Hives soap [From Betadine] Allergy (Intermediate, Verified 04/19/20 12:39) Hives Sulfa (Sulfonamide Antibiotics) Allergy (Intermediate, Verified 04/19/20 12:39) Hives venom-honey bee [bee venom (honey bee)] Allergy (Verified 04/19/20 12:39) Home Medications: Albuterol/Ipratropium cc [Combivent Inhaler COMMON CANISTER] 15 gm IH UD 11/11/20 [History] Duloxetine HCl 60 mg PO DAILY 04/19/20 [History] Isosorbide Mononitrate 30 mg [Imdur 30 MG] 30 mg PO DAILY 04/19/20 [History] Omeprazole 20 mg PO DAILY 04/19/20 [History] Prazosin HCl 5 mg PO DAILY 04/19/20 [History] risperiDONE [Risperidone] 3 mg PO DAILY 04/19/20 [History] Hx Tetanus, Diphtheria Vaccination/Date Given: Yes ([place]) Hx Influenza Vaccination/Date Given: No Hx Pneumococcal Vaccination/Date Given: No Travel Risk - International Travel Have you traveled outside of the country in past 3 weeks: No - Coronavirus Screening Are you exhibiting any of the following symptoms?: Yes Symptoms: Shortness of Breath Close contact with a COVID-19 positive Pt in past 14-21 Days: No - Review of Systems Constitutional: No Fever, No Chills Eyes: No Symptoms Ears, Nose, & Throat: No Symptoms Respiratory: No Cough, No Dyspnea Cardiac: Chest Pain (Minimal discomfort), Palpitations, No Edema, No Syncope Abdominal/Gastrointestinal: No Abdominal Pain, No Nausea, No Vomiting, No Diarrhea Genitourinary Symptoms: No Dysuria Musculoskeletal: No Back Pain, No Neck Pain Skin: No Rash Neurological: No Dizziness, No Focal Weakness, No Sensory Changes Psychological: No Symptoms Endocrine: No Symptoms All Other Systems: Reviewed and Negative - Past Medical History Pertinent Past Medical History: Yes Neurological History: No Pertinent History ENT History: No Pertinent History Cardiac History: No Pertinent History Respiratory History: COPD Endocrine Medical History: No Pertinent History Musculoskeletal History: Degenerative Disk Disease, Other GI Medical History: No Pertinent History History: No Pertinent History Psycho-Social History: Bipolar, Depression, Panic Disorder, Other Female Reproductive Disorders: No Pertinent History Other Medical History: SLEEP APNEA - Past Surgical History Past Surgical History: Yes Neuro Surgical History: No Pertinent History Cardiac: No Pertinent History Respiratory: No Pertinent History Gastrointestinal: No Pertinent History Genitourinary: No Pertinent History Musculoskeletal: No Pertinent History Female Surgical History: No Pertinent History Other Surgical History: D/C - Social History Smoking Status: Current every day smoker How long have you smoked: 30 yrs Exposure to second hand smoke: Yes Drug Use: none Patient Lives Alone: No - Female History Hx Now: No - Nursing Vital Signs Nursing Vital Signs: Initial Vital Signs Temperature 97.9 F 07/29/20 15:22 Pulse Rate 91 H 07/29/20 15:22 Respiratory Rate 37 H 07/29/20 15:22 Blood Pressure 147/105 07/29/20 15:22 O2 Sat by Pulse Oximetry 94 L 07/29/20 15:22 Pain Scale Pain Intensity 4 - Physical Exam General Appearance: no apparent distress, alert Eye Exam: PERRL/EOMI, eyes nml inspection Ears, Nose, Throat Exam: normal ENT inspection, moist mucous membranes Neck Exam: normal inspection, non-tender, supple, full range of motion Respiratory Exam: normal breath sounds, lungs clear, No respiratory distress Cardiovascular Exam: regular rate/rhythm, normal heart sounds Gastrointestinal/Abdomen Exam: soft, No tenderness, No mass Back Exam: normal inspection, No CVA tenderness, No vertebral tenderness Extremity Exam: normal inspection, normal range of motion Neurologic Exam: alert, oriented x 3, cooperative, normal mood/affect, sensation nml, No motor deficits Skin Exam: normal color, warm, dry SpO2: 97 - Course Nursing assessment & vital signs reviewed: Yes EKG Interpreted by Me: RATE ([id number]), NORMAL AXIS, NORMAL INTERVALS, NORMAL QRS - Radiology Exams Chest X-ray Interpretation: Interpreted by me, Other (Elevation of the right hemidiaphragm and some atelectasis in the right lower lobe) - CT Exams Chest CT Interpretation: Tele-radiologist Report Ordered Tests: Active Orders 24 hr Category Date Time Status EKG-ER Only STAT Care 07/29/20 15:26 Active CHEST 1 VIEW (PORTABLE) Stat Exams 07/29/20 15:27 Taken CHEST WITH CONTRAST [CT] Stat Exams 07/29/20 16:07 Taken AMYLASE Stat Lab 07/29/20 15:40 Completed CBC W DIFF Stat Lab 07/29/20 15:40 Completed CMP Stat Lab 07/29/20 15:40 Completed D-DIMER QUANTITATIVE Stat Lab 07/29/20 15:40 Completed Erythrocyte Sedimentation Rate Stat Lab 07/29/20 15:40 Completed LIPASE Stat Lab 07/29/20 15:40 Completed Lactic Acid Stat Lab 07/29/20 15:26 Completed MAGNESIUM Stat Lab 07/29/20 15:40 Completed NT PRO BNP Stat Lab 07/29/20 15:40 Completed PROTIME WITH INR Stat Lab 07/29/20 15:40 Completed TROPONIN Q3H Lab 07/29/20 15:40 Completed TROPONIN Q3H Lab 07/29/20 18:37 Received TROPONIN Q3H Lab 07/29/20 21:30 Ordered TROPONIN Q3H Lab 07/30/20 00:30 Ordered TROPONIN Q3H Lab 07/30/20 03:30 Ordered UA W/RFX UR CULTURE Stat Lab 07/29/20 16:39 Completed Urine Triage Profile Stat Lab 07/29/20 16:39 Completed Medication Summary Discontinued Medications Generic Name Dose Route Start Last Admin Trade Name Freq PRN Reason Stop Dose Admin Diphenhydramine HCl 50 mg 07/29/20 16:35 07/29/20 16:36 Benadryl 50 Mg/Ml IM 07/29/20 16:36 50 mg STAT ONE Administration Diphenhydramine HCl Confirm 07/29/20 16:35 Benadryl 50 Mg/Ml Administered 07/29/20 16:36 Dose 50 mg .ROUTE .STK-MED ONE Hydromorphone HCl 1 mg 07/29/20 15:30 07/29/20 15:36 Hydromorphone 1 Mg/Ml Injection IV 07/29/20 15:31 1 mg STAT ONE Administration Hydromorphone HCl Confirm 07/29/20 15:34 Hydromorphone 1 Mg/Ml Injection Administered 07/29/20 15:35 Dose 1 mg .ROUTE .STK-MED ONE Sodium Chloride 1,000 mls @ 999 mls/hr 07/29/20 15:26 07/29/20 16:36 Sodium Chloride 0.9% 1000 Ml IV 07/29/20 16:26 Infused .Q1H1M STA Infusion Sodium Chloride Confirm 07/29/20 15:34 Sodium Chloride 0.9% 1000 Ml Administered 07/29/20 15:35 Dose 1,000 mls @ ud .ROUTE .STK-MED ONE Methylprednisolone Sodium Succinate 125 mg 07/29/20 16:34 07/29/20 16:36 Solu-Medrol 125 Mg IV 07/29/20 16:35 125 mg STAT ONE Administration Methylprednisolone Sodium Succinate Confirm 07/29/20 16:35 Solu-Medrol 125 Mg Administered 07/29/20 16:36 Dose 125 mg .ROUTE .STK-MED ONE Lab/Rad Data: Laboratory Result Diagrams 07/29/20 15:40 07/29/20 15:40 Laboratory Results 07/29/20 07/29/20 07/29/20 Range/Units 16:39 16:39 15:40 WBC (4.0-10.5) K/mm3 RBC (4.1-5.4) M/mm3 Hgb (12.0-16.0) gm/dl Hct (35-47) % MCV (78-100) fl MCH (26-32) pg MCHC (32-36) g/dl RDW (11.5-14.0) % Plt Count (150-450) K/mm3 MPV (7.5-11.0) fl Gran % (36.0-66.0) % Eos # (Auto) (0-0.5) Absolute Lymphs (auto) (1.0-4.6) Absolute Monos (auto) (0.0-1.3) Lymphocytes % (24.0-44.0) % Monocytes % (0.0-12.0) % Eosinophils % (0.00-5.0) % Basophils % (0.0-0.4) % Absolute Granulocytes (1.4-6.9) Basophils # (0-0.4) ESR (0-20) mm/hr PT (9.95-12.35) SECONDS INR (0.8-3.0) D-Dimer (215-500) ng/mL Sodium (137-145) mmol/L Potassium (3.5-5.1) mmol/L Chloride (98-107) mmol/L Carbon Dioxide (22-30) mmol/L Anion Gap (5-15) MEQ/L BUN (7-17) mg/dL Creatinine (0.52-1.04) mg/dL Estimated GFR ML/MIN Glucose (74-106) mg/dL Lactic Acid (0.4-2.0) Calcium (8.4-10.2) mg/dL Magnesium (1.6-2.3) mg/dL Total Bilirubin (0.2-1.3) mg/dL AST (14-36) U/L ALT (0-35) U/L Alkaline Phosphatase (38-126) U/L Troponin I < 0.012 (0.000-0.034) ng/mL NT-Pro-B Natriuret Pep (0-450) pg/mL Serum Total Protein (6.3-8.2) g/dL Albumin (3.5-5.0) g/dL Amylase (30-110) U/L Lipase (23-300) U/L Urine Color YELLOW (YELLOW) Urine Appearance CLOUDY (CLEAR) Urine pH 6.0 (5-6) Ur Specific [place] 1.023 (1.005-1.025) Urine Protein NEGATIVE (Negative) Urine Ketones TRACE (NEGATIVE) Urine Blood NEGATIVE (0-5) Noel/ul Urine Nitrite NEGATIVE (NEGATIVE) Urine Bilirubin NEGATIVE (NEGATIVE) Urine Urobilinogen 2 (0-1) mg/dL Ur Leukocyte Esterase TRACE (NEGATIVE) Urine WBC (Auto) 6-10 (0-5) /HPF Urine RBC (Auto) 0-2 (0-2) /HPF U Epithel Cells (Auto) MODERATE (FEW) /HPF Urine Bacteria (Auto) RARE (NEGATIVE) /HPF Urine Mucus (Auto) SLIGHT (NEGATIVE) /HPF Urine Culture Reflexed NO (NO) Urine Glucose NEGATIVE (NEGATIVE) mg/dL Urine Opiates Level POSITIVE (NEGATIVE) Ur Methadone NEGATIVE (NEGATIVE) Urine Barbiturates NEGATIVE (NEGATIVE) Ur Phencyclidine (PCP) NEGATIVE (NEGATIVE) Urine Amphetamine NEGATIVE (NEGATIVE) U Benzodiazepine Level POSITIVE (NEGATIVE) Urine Cocaine NEGATIVE (NEGATIVE) Urine Marijuana (THC) NEGATIVE (NEGATIVE) 07/29/20 07/29/20 07/29/20 Range/Units 15:40 15:40 15:40 WBC 11.6 H (4.0-10.5) K/mm3 RBC 4.78 (4.1-5.4) M/mm3 Hgb 13.6 (12.0-16.0) gm/dl Hct 43.7 (35-47) % MCV 91.4 (78-100) fl MCH 28.5 (26-32) pg MCHC 31.1 L (32-36) g/dl RDW 14.9 H (11.5-14.0) % Plt Count 426 (150-450) K/mm3 MPV 10.1 (7.5-11.0) fl Gran % 58.8 (36.0-66.0) % Eos # (Auto) 0.10 (0-0.5) Absolute Lymphs (auto) 3.41 (1.0-4.6) Absolute Monos (auto) 1.25 (0.0-1.3) Lymphocytes % 29.4 (24.0-44.0) % Monocytes % 10.8 (0.0-12.0) % Eosinophils % 0.9 (0.00-5.0) % Basophils % 0.1 (0.0-0.4) % Absolute Granulocytes 6.83 (1.4-6.9) Basophils # 0.01 (0-0.4) ESR 26 H (0-20) mm/hr PT 14.8 H (9.95-12.35) SECONDS INR 1.31 (0.8-3.0) D-Dimer 4802 H* (215-500) ng/mL Sodium 134 L (137-145) mmol/L Potassium 3.7 (3.5-5.1) mmol/L Chloride 100 (98-107) mmol/L Carbon Dioxide 26 (22-30) mmol/L Anion Gap 11.4 (5-15) MEQ/L BUN 12 (7-17) mg/dL Creatinine 0.64 (0.52-1.04) mg/dL Estimated GFR > 60.0 ML/MIN Glucose 102 (74-106) mg/dL Lactic Acid (0.4-2.0) Calcium 9.5 (8.4-10.2) mg/dL Magnesium 1.9 (1.6-2.3) mg/dL Total Bilirubin 0.30 (0.2-1.3) mg/dL AST 27 (14-36) U/L ALT 40 H (0-35) U/L Alkaline Phosphatase 164 H (38-126) U/L Troponin I (0.000-0.034) ng/mL NT-Pro-B Natriuret Pep 40.7 (0-450) pg/mL Serum Total Protein 8.1 (6.3-8.2) g/dL Albumin 4.4 (3.5-5.0) g/dL Amylase 31 (30-110) U/L Lipase 49 (23-300) U/L Urine Color (YELLOW) Urine Appearance (CLEAR) Urine pH (5-6) Ur Specific [place] (1.005-1.025) Urine Protein (Negative) Urine Ketones (NEGATIVE) Urine Blood (0-5) Noel/ul Urine Nitrite (NEGATIVE) Urine Bilirubin (NEGATIVE) Urine Urobilinogen (0-1) mg/dL Ur Leukocyte Esterase (NEGATIVE) Urine WBC (Auto) (0-5) /HPF Urine RBC (Auto) (0-2) /HPF U Epithel Cells (Auto) (FEW) /HPF Urine Bacteria (Auto) (NEGATIVE) /HPF Urine Mucus (Auto) (NEGATIVE) /HPF Urine Culture Reflexed (NO) Urine Glucose (NEGATIVE) mg/dL Urine Opiates Level (NEGATIVE) Ur Methadone (NEGATIVE) Urine Barbiturates (NEGATIVE) Ur Phencyclidine (PCP) (NEGATIVE) Urine Amphetamine (NEGATIVE) U Benzodiazepine Level (NEGATIVE) Urine Cocaine (NEGATIVE) Urine Marijuana (THC) (NEGATIVE) 07/29/20 Range/Units 15:26 WBC (4.0-10.5) K/mm3 RBC (4.1-5.4) M/mm3 Hgb (12.0-16.0) gm/dl Hct (35-47) % MCV (78-100) fl MCH (26-32) pg MCHC (32-36) g/dl RDW (11.5-14.0) % Plt Count (150-450) K/mm3 MPV (7.5-11.0) fl Gran % (36.0-66.0) % Eos # (Auto) (0-0.5) Absolute Lymphs (auto) (1.0-4.6) Absolute Monos (auto) (0.0-1.3) Lymphocytes % (24.0-44.0) % Monocytes % (0.0-12.0) % Eosinophils % (0.00-5.0) % Basophils % (0.0-0.4) % Absolute Granulocytes (1.4-6.9) Basophils # (0-0.4) ESR (0-20) mm/hr PT (9.95-12.35) SECONDS INR (0.8-3.0) D-Dimer (215-500) ng/mL Sodium (137-145) mmol/L Potassium (3.5-5.1) mmol/L Chloride (98-107) mmol/L Carbon Dioxide (22-30) mmol/L Anion Gap (5-15) MEQ/L BUN (7-17) mg/dL Creatinine (0.52-1.04) mg/dL Estimated GFR ML/MIN Glucose (74-106) mg/dL Lactic Acid 1.0 (0.4-2.0) Calcium (8.4-10.2) mg/dL Magnesium (1.6-2.3) mg/dL Total Bilirubin (0.2-1.3) mg/dL AST (14-36) U/L ALT (0-35) U/L Alkaline Phosphatase (38-126) U/L Troponin I (0.000-0.034) ng/mL NT-Pro-B Natriuret Pep (0-450) pg/mL Serum Total Protein (6.3-8.2) g/dL Albumin (3.5-5.0) g/dL Amylase (30-110) U/L Lipase (23-300) U/L Urine Color (YELLOW) Urine Appearance (CLEAR) Urine pH (5-6) Ur Specific [place] (1.005-1.025) Urine Protein (Negative) Urine Ketones (NEGATIVE) Urine Blood (0-5) Noel/ul Urine Nitrite (NEGATIVE) Urine Bilirubin (NEGATIVE) Urine Urobilinogen (0-1) mg/dL Ur Leukocyte Esterase (NEGATIVE) Urine WBC (Auto) (0-5) /HPF Urine RBC (Auto) (0-2) /HPF U Epithel Cells (Auto) (FEW) /HPF Urine Bacteria (Auto) (NEGATIVE) /HPF Urine Mucus (Auto) (NEGATIVE) /HPF Urine Culture Reflexed (NO) Urine Glucose (NEGATIVE) mg/dL Urine Opiates Level (NEGATIVE) Ur Methadone (NEGATIVE) Urine Barbiturates (NEGATIVE) Ur Phencyclidine (PCP) (NEGATIVE) Urine Amphetamine (NEGATIVE) U Benzodiazepine Level (NEGATIVE) Urine Cocaine (NEGATIVE) Urine Marijuana (THC) (NEGATIVE) - Progress Progress: improved Air Movement: good Blood Culture(s) Obtained: No Antibiotics given: No - Departure Departure Disposition: Home Clinical Impression: Palpitations, Elevated d-dimer Condition: Stable Critical Care Time: No Referrals: EDA ORTEGA [Primary Care Provider] - Instructions: Palpitations (DC) Prescriptions: Metoprolol Succinate 50 mg [Toprol Xl 50 MG] 50 mg PO DAILY 30 Days #30 tablet
[2020-07-29] MEDS ORDERED: Toprol-Xl 25MG Tablets ONE (19:27)
[2020-07-29] MEDS ORDERED: Toprol-Xl 25MG Tablets PO ONE (19:29)
[2020-07-29 19:33] VITALS: BP 163/94; PULSE 82; O2SAT 98
--- NOTE | 2020-07-29 19:34 | XRAY ---
Indication: Left chest pain. Elevated d-dimer. Multiple contiguous axial images obtained through the chest using 100 cc Isovue 370 contrast and PE protocol. Comparison: None Patient was premedicated by the ordering clinician due to known IV contrast allergy. There is satisfactory opacification of the pulmonary arteries to include the lobar and segmental branches. Minimal respiration artifact limits evaluation of the more distal branches. No obvious pulmonary embolus. Heart is borderline enlarged with prominent epicardiac fat. Aorta is normal in course and caliber. [place] left hilar calcified node. No pathologic mediastinal/hilar lymphadenopathy. Lungs demonstrates bilateral mid lung subsegmental atelectasis/scarring, right greater than left. Tiny peripheral left upper lobe calcified granuloma. No suspicious pulmonary mass, nodule, infiltrate, or effusion. Incidental mild right hemidiaphragm elevation. Bony thorax intact with mild degenerative changes throughout the spine. Limited upper abdomen demonstrates fatty liver. Impression: 1. Negative pulmonary embolus. 2. Bilateral subsegmental atelectasis/scarring, fatty liver, and old granulomatous disease. 3. Remaining CT chest with contrast exam is negative. Comment: Preliminary interpretation was made by [facility]. No critical discrepancy.
--- NOTE | 2020-07-29 19:34 | XRAY ---
Indication: Left chest pain. Comparison: April 19, 2020. Portable chest less inflated with new bilateral mid to lower lung subsegmental atelectasis/scarring and right hemidiaphragm elevation. Remaining heart, lungs, and bony thorax unremarkable.
[2020-07-29] MEDS ORDERED: Toprol Xl 50 MG PO ONE (22:00)
== END 2020-07-29 19:45 | disposition home or self-care (01) ==
LOC: ED 15:20
DX: R00.2 Palpitations (principal); R79.1 Abnormal coagulation profile; Z79.899 Other long term (current) drug therapy
CPT/HCPCS: 36000; 36415; 71045; 71260; 80053; 80307; 81001; 82150; 83605; 83690; 83735; 83880; 84484; 85025; 85379; 85610; 85652; 93005; 96360; 96374; 96375; 99284; J1170; J1200; J2930; A9270-GY

== ENCOUNTER 2021-06-17 11:41 | Observation (INO) | payer OTHER ==
[2021-06-17] MEDS ORDERED: CLINDAMYCIN-D5W 600 MG/50 ML*** 600 MG/50 ML BAG IV STA (12:10)
[2021-06-17] MEDS ORDERED: Sodium Chloride 0.9% 1000 ML 1,000 ML IV STA (12:11)
[2021-06-17 12:49] LABS: Absolute Neutrophil Ct (ANC) 4.67 (1.4-6.9); Basophil (Absolute #) 0.02 (0-0.4); Eosinophil % 2.1 % (0.00-5.0); Eosinophil (Absolute #) 0.18 (0-0.5); Hematocrit 39.6 % (35-47); Hemoglobin 12.1 gm/dl (12.0-16.0); Mean Cell Volume 91.5 fl (78-100); Mean Corpuscular Hemoglobin 27.9 pg (26-32); Mean Corpuscular Hgb Concent. 30.6 g/dl (32-36); Mean Platelet Volume 10.1 fl (7.5-11.0); Monocyte (Absolute #) 1.08 (0.0-1.3); Monocytes % 12.3 % (0.0-12.0); Neutrophil % 53.4 % (36.0-66.0); Platelet Count 441 K/mm3 (150-450); Red Blood Count 4.33 M/mm3 (4.1-5.4); Red Cell Distribution Width 16.5 % (11.5-14.0); White Blood Count 8.8 K/mm3 (4.0-10.5)
[2021-06-17 13:01] LABS: ALBUMIN 4.1 g/dL (3.5-5.0); ALKALINE PHOSPHATASE 147 U/L (38-126); ANION GAP 12.5 MEQ/L (5-15); BLOOD UREA NITROGEN 11 mg/dL (7-17); CHLORIDE 103 mmol/L (98-107); Calcium 8.6 mg/dL (8.4-10.2); Carbon Dioxide 26 mmol/L (22-30); Creatinine 1 0.69 mg/dL (0.52-1.04); EST GLOMERULAR FILTRATION RATE > 60.0 ML/MIN; Glucose 98 mg/dL (74-106); LIPASE 41 U/L (23-300); Potassium 3.6 mmol/L (3.5-5.1); SGOT/AST 17 U/L (14-36); SGPT/ALT 19 U/L (0-35); SODIUM 137 mmol/L (137-145)
[2021-06-17] MEDS ORDERED: Sodium Chloride 0.9% 1000 ML 1,000 ML ONE (13:05)
[2021-06-17] MEDS ORDERED: CLINDAMYCIN-D5W 600 MG/50 ML*** 600 MG/50 ML BAG IV ONE ×2 (13:05→14:08)
--- NOTE | 2021-06-17 13:40 | ERPHSYRPT ---
- History of Present Illness Time Seen by Provider: 06/17/21 11:44 Source: patient Exam Limitations: no limitations Patient Subjective Stated Complaint: Patient complains of right leg pain and swelling. States she has cellulitus that she was treated for 1 month ago at [facility] ER with antibiotics. Triage Nursing Assessment: Patient to ed with swelling of R leg and white/yellow drainage on back of R calf. States leg is burning "feels like skin is ripping apart. Physician History: Patient is here with right lower leg cellulitis. Patient states has been going on for several weeks. No falls or trauma. She has been given outpatient clindamycin at the [place] emergency department. She states that this did not help. She follows with Dr. Ortiz. She has not been able to see him in several months. Timing/Duration: week(s) Severity: mild Modifying Factors: Improves With: other Associated Symptoms: denies symptoms Allergies/Adverse Reactions: Penicillins Allergy (Severe, Verified 06/17/21 12:05) EYES, THROAT SWELLS povidone-iodine [From Betadine] Allergy (Severe, Verified 06/17/21 12:05) Hives soap [From Betadine] Allergy (Intermediate, Verified 06/17/21 12:05) Hives Sulfa (Sulfonamide Antibiotics) Allergy (Intermediate, Verified 06/17/21 12:05) Hives venom-honey bee [bee venom (honey bee)] Allergy (Verified 06/17/21 12:05) Home Medications: Albuterol/Ipratropium cc [Combivent Inhaler COMMON CANISTER] 15 gm IH UD 04/19/20 [History] Duloxetine HCl 60 mg PO DAILY 04/19/20 [History] Isosorbide Mononitrate 30 mg [Imdur 30 MG] 30 mg PO DAILY 04/19/20 [History] Omeprazole 20 mg PO DAILY 04/19/20 [History] Prazosin HCl 5 mg PO DAILY 04/19/20 [History] risperiDONE [Risperidone] 3 mg PO DAILY 04/19/20 [History] Hx Tetanus, Diphtheria Vaccination/Date Given: Yes ([place]) Hx Influenza Vaccination/Date Given: No Hx Pneumococcal Vaccination/Date Given: No Immunizations Up to Date: No Travel Risk - International Travel Have you traveled outside of the country in past 3 weeks: No - Coronavirus Screening Are you exhibiting any of the following symptoms?: No Close contact with a COVID-19 positive Pt in past 14-21 Days: No - Vaccine Status Have you recieved a Covid-19 vaccination: No - Review of Systems Constitutional: No Fever, No Chills Eyes: No Symptoms Ears, Nose, & Throat: No Symptoms Respiratory: No Cough, No Dyspnea Cardiac: No Chest Pain, No Edema, No Syncope Abdominal/Gastrointestinal: No Abdominal Pain, No Nausea, No Vomiting, No Diarrhea Genitourinary Symptoms: No Dysuria Musculoskeletal: No Back Pain, No Neck Pain Skin: Other (Right lower leg cellulitis), No Rash Neurological: No Dizziness, No Focal Weakness, No Sensory Changes Psychological: No Symptoms Endocrine: No Symptoms All Other Systems: Reviewed and Negative - Past Medical History Pertinent Past Medical History: Yes Neurological History: No Pertinent History ENT History: No Pertinent History Cardiac History: No Pertinent History Respiratory History: COPD Endocrine Medical History: No Pertinent History Musculoskeletal History: Degenerative Disk Disease, Other GI Medical History: No Pertinent History History: No Pertinent History Psycho-Social History: Bipolar, Depression, Panic Disorder, Other Female Reproductive Disorders: No Pertinent History Other Medical History: SLEEP APNEA - Past Surgical History Past Surgical History: Yes Neuro Surgical History: No Pertinent History Cardiac: No Pertinent History Respiratory: No Pertinent History Gastrointestinal: No Pertinent History Genitourinary: No Pertinent History Musculoskeletal: No Pertinent History Female Surgical History: No Pertinent History Other Surgical History: D/C, heart cath - Social History Smoking Status: Current every day smoker How long have you smoked: 30 yrs Exposure to second hand smoke: Yes Drug Use: none Patient Lives Alone: No - Female History Hx Now: No - Nursing Vital Signs Nursing Vital Signs: Initial Vital Signs Temperature 98 F 06/17/21 11:58 Pain Scale Pain Intensity 8 - Physical Exam General Appearance: no apparent distress, alert Eye Exam: PERRL/EOMI, eyes nml inspection Ears, Nose, Throat Exam: normal ENT inspection, TMs normal, pharynx normal, moist mucous membranes Neck Exam: normal inspection, non-tender, supple, full range of motion Respiratory Exam: normal breath sounds, lungs clear, No respiratory distress Cardiovascular Exam: regular rate/rhythm, normal heart sounds, normal peripheral pulses Gastrointestinal/Abdomen Exam: soft, normal bowel sounds, No tenderness, No mass Back Exam: normal inspection, normal range of motion, No CVA tenderness, No vertebral tenderness Extremity Exam: normal range of motion, pelvis stable, other (Right lower leg cellulitis, no obvious drainable abscess) Neurologic Exam: alert, oriented x 3, cooperative, normal mood/affect, nml cerebellar function, nml station & gait, sensation nml, No motor deficits Skin Exam: normal color, warm, dry, No rash Lymphatic Exam: No adenopathy SpO2: 94 - Course Nursing assessment & vital signs reviewed: Yes EKG Interpreted by Me: Sinus Rhythm Ordered Tests: Active Orders 24 hr Category Date Time Status Code Status Order ROUTINE Care 06/17/21 13:41 Active EKG-ER Only STAT Care 06/17/21 12:11 Active IV Care Q6H Care 06/17/21 13:41 Active IV Insertion STAT Care 06/17/21 12:[address] in Observation ROUTINE Care 06/17/21 13:41 Active House Regular Diet Diet 06/17/21 Breakfast Active BLOOD CULTURE Stat Lab 06/17/21 13:05 Received CBC W DIFF AM.LAB Lab 06/18/21 04:00 Ordered CBC W DIFF Stat Lab 06/17/21 12:35 Completed CMP AM.LAB Lab 06/18/21 04:00 Ordered CMP Stat Lab 06/17/21 12:35 Completed LIPASE Stat Lab 06/17/21 12:35 Completed Lactic Acid AM.LAB Lab 06/18/21 04:00 Ordered Lactic Acid Stat Lab 06/17/21 12:35 Received TROPONIN AM.LAB Lab 06/18/21 04:00 Ordered Medication Summary Generic Name Dose Route Start Last Admin Trade Name Freq PRN Reason Stop Dose Admin Acetaminophen 650 mg 06/17/21 13:41 Acetaminophen 325 Mg Tablet PO 07/17/21 13:40 Q4H PRN PRN PAIN AND/OR FEVER Potassium Chloride/Sodium Chloride 1,000 mls @ 100 mls/hr 06/17/21 13:45 06/17/21 14:17 Sodium Chloride 0.9% W/ 20 Meq Kcl/Liter IV 07/17/21 13:44 Not Given .Q10H [place] Clindamycin HCl/Dextrose 600 mg in 50 mls @ 100 mls/hr 06/17/21 14:00 06/17/21 14:15 Clindamycin-D5w 600 Mg/50 Ml IV 07/17/21 13:59 Not Given Q8HT [facility] Morphine Sulfate 4 mg 06/17/21 13:41 06/17/21 14:11 Morphine Sulfate 4 Mg/Ml Injection IV 06/22/21 13:40 4 mg Q4H PRN PRN Administration PAIN Discontinued Medications Generic Name Dose Route Start Last Admin Trade Name Freq PRN Reason Stop Dose Admin Clindamycin HCl/Dextrose 600 mg in 50 mls @ 100 mls/hr 06/17/21 12:10 06/17/21 13:45 Clindamycin-D5w 600 Mg/50 Ml IV 06/17/21 12:39 Infused STAT STA Infusion Sodium Chloride 1,000 mls @ 999 mls/hr 06/17/21 12:11 06/17/21 14:32 Sodium Chloride 0.9% 1000 Ml IV 06/17/21 13:11 Infused .Q1H1M STA Infusion Sodium Chloride Confirm 06/17/21 13:05 Sodium Chloride 0.9% 1000 Ml Administered 06/17/21 13:06 Dose 1,000 mls @ ud .ROUTE .STK-MED ONE Clindamycin HCl/Dextrose Confirm 06/17/21 13:05 Clindamycin-D5w 600 Mg/50 Ml Administered 06/17/21 13:06 Dose 600 mg in 50 mls @ ud IV .STK-MED ONE Lab/Rad Data: Laboratory Result Diagrams 06/17/21 12:35 06/17/21 12:35 Laboratory Results 06/17/21 06/17/21 06/17/21 Range/Units 14:12 12:35 12:35 WBC 8.8 (4.0-10.5) K/mm3 RBC 4.33 (4.1-5.4) M/mm3 Hgb 12.1 (12.0-16.0) gm/dl Hct 39.6 (35-47) % MCV 91.5 (78-100) fl MCH 27.9 (26-32) pg MCHC 30.6 L (32-36) g/dl RDW 16.5 H (11.5-14.0) % Plt Count 441 (150-450) K/mm3 MPV 10.1 (7.5-11.0) fl Gran % 53.4 (36.0-66.0) % Eos # (Auto) 0.18 (0-0.5) Absolute Lymphs (auto) 2.80 (1.0-4.6) Absolute Monos (auto) 1.08 (0.0-1.3) Lymphocytes % 32.0 (24.0-44.0) % Monocytes % 12.3 H (0.0-12.0) % Eosinophils % 2.1 (0.00-5.0) % Basophils % 0.2 (0.0-0.4) % Absolute Granulocytes 4.67 (1.4-6.9) Basophils # 0.02 (0-0.4) Sodium 137 (137-145) mmol/L Potassium 3.6 (3.5-5.1) mmol/L Chloride 103 (98-107) mmol/L Carbon Dioxide 26 (22-30) mmol/L Anion Gap 12.5 (5-15) MEQ/L BUN 11 (7-17) mg/dL Creatinine 0.69 (0.52-1.04) mg/dL Estimated GFR > 60.0 ML/MIN Glucose 98 (74-106) mg/dL Calcium 8.6 (8.4-10.2) mg/dL Total Bilirubin 0.60 (0.2-1.3) mg/dL AST 17 (14-36) U/L ALT 19 (0-35) U/L Alkaline Phosphatase 147 H (38-126) U/L Serum Total Protein 8.0 (6.3-8.2) g/dL Albumin 4.1 (3.5-5.0) g/dL Lipase 41 (23-300) U/L Influenza Type A Ag NEGATIVE (NEGATIVE) Influenza Type B Ag NEGATIVE (NEGATIVE) RSV (PCR) NEGATIVE (Negative) SARS-CoV-2 (PCR) NEGATIVE (NEGATIVE) - Progress Progress: improved Progress Note: 06/17/21 15:10 Patient has failed outpatient antibiotics. Therefore we will start IV a ntibiotics, IV clindamycin. Plan for broad-based septic work-up. Plan to admit patient to the hospital. Discussed over the phone with on-call physician, Dr. Harvey. She will accept the patient on behalf of Dr. Ortiz. Plan for admission for right lower leg cellulitis with failed outpatient antibiotics. After reviewing labs, appropriate imaging, discussion with patient and family. We decided the patient should be admitted to the hospital. I called the inpatient team discussed history, physical and results with them in detail. We decided on the plan of action and admission to [facility]. We agreed on appropriate consults and who would call them. Discussed with : Swati Will see patient in: hospital (observation) Counseled pt/family regarding: lab results, diagnosis - Departure Departure Disposition: In-patient Admission Clinical Impression: Cellulitis of right lower leg Condition: Stable Critical Care Time: No Referrals: EDA ORTIZ [Primary Care Provider] - Follow up/PCP as directed
[2021-06-17] MEDS ORDERED: TYLENOL 325 MG PO PRN ×2 (13:41→15:58)
[2021-06-17] MEDS ORDERED: MORPHINE SULFATE 4 MG INJ IV PRN (13:41)
[2021-06-17] MEDS ORDERED: Sodium Chloride 0.9% W/ 20 mEq KCl/LITER 1,000 ML IV ONE (14:09)
[2021-06-17] MEDS: Sodium Chloride 0.9% W/ 20 mEq KCl/LITER 1,000 ML IV SCH ×3 (14:10→16:46)
[2021-06-17] MEDS: CLINDAMYCIN-D5W 600 MG/50 ML*** 600 MG/50 ML BAG IV SCH ×4 (14:11→20:43)
[2021-06-17 14:58] LABS: INFLUENZA A NEGATIVE (NEGATIVE); INFLUENZA B NEGATIVE (NEGATIVE); RESPIRATORY SYNCTIAL VIRUS NEGATIVE (Negative); SARS-CoV-2 Xpert Express NEGATIVE (NEGATIVE)
[2021-06-17] MEDS ORDERED: Combivent Inhaler COMMON CANISTER IH PRN (16:43)
[2021-06-17] MEDS ORDERED: LASIX 20 MG PO ONE (16:49)
[2021-06-17] MEDS ORDERED: Imdur 30 MG PO ONE (16:50)
[2021-06-17] MEDS ORDERED: hydroDIURIL 25 MG PO ONE (16:52)
[2021-06-17] MEDS ORDERED: Zestril 10 MG PO ONE (16:52)
[2021-06-17] MEDS: MORPHINE SULFATE 4 MG INJ IV PRN ×2 (18:17→22:18)
[2021-06-17] MEDS ORDERED: DUONEB 0.5-3 MG/3 ml Neb IH ONE (18:53)
[2021-06-17] MEDS: DUONEB 0.5-3 MG/3 ml Neb IH PRN (18:59)
[2021-06-17] MEDS ORDERED: CLINDAMYCIN-D5W 600 MG/50 ML*** 600 MG/50 ML BAG IV SCH (22:00)
[2021-06-18] MEDS: CLINDAMYCIN-D5W 600 MG/50 ML*** 600 MG/50 ML BAG IV SCH ×2 (00:37→04:41)
[2021-06-18] MEDS: MORPHINE SULFATE 4 MG INJ IV PRN ×5 (02:22→23:31)
[2021-06-18] MEDS: Sodium Chloride 0.9% W/ 20 mEq KCl/LITER 1,000 ML IV SCH (02:41)
[2021-06-18 05:23] LABS: Absolute Neutrophil Ct (ANC) 4.52 (1.4-6.9); Basophil (Absolute #) 0.03 (0-0.4); Eosinophil % 2.3 % (0.00-5.0); Hematocrit 35.9 % (35-47); Hemoglobin 10.8 gm/dl (12.0-16.0); Lymphocyte (Absolute #) 2.71 (1.0-4.6); Lymphocytes % 31.3 % (24.0-44.0); Mean Cell Volume 92.8 fl (78-100); Mean Corpuscular Hemoglobin 27.9 pg (26-32); Mean Corpuscular Hgb Concent. 30.1 g/dl (32-36); Mean Platelet Volume 9.9 fl (7.5-11.0); Monocytes % 13.9 % (0.0-12.0); Neutrophil % 52.2 % (36.0-66.0); Platelet Count 393 K/mm3 (150-450); Red Blood Count 3.87 M/mm3 (4.1-5.4); Red Cell Distribution Width 16.4 % (11.5-14.0); White Blood Count 8.7 K/mm3 (4.0-10.5)
[2021-06-18 06:07] LABS: ALBUMIN 3.6 g/dL (3.5-5.0); ALKALINE PHOSPHATASE 115 U/L (38-126); ANION GAP 8.3 MEQ/L (5-15); BLOOD UREA NITROGEN 9 mg/dL (7-17); CHLORIDE 101 mmol/L (98-107); Calcium 8.2 mg/dL (8.4-10.2); Carbon Dioxide 27 mmol/L (22-30); Creatinine 1 0.66 mg/dL (0.52-1.04); EST GLOMERULAR FILTRATION RATE > 60.0 ML/MIN; Glucose 112 mg/dL (74-106); Potassium 3.4 mmol/L (3.5-5.1); SGOT/AST 17 U/L (14-36); SGPT/ALT 17 U/L (0-35); SODIUM 133 mmol/L (137-145); TROPONIN < 0.012 ng/mL (0.000-0.034); Total Protein 7.1 g/dL (6.3-8.2)
[2021-06-18] MEDS ORDERED: MORPHINE SULFATE 4 MG INJ ONE (06:37)
[2021-06-18] MEDS ORDERED: MEDICATION INTERVENTION MC SCH (07:30)
[2021-06-18] MEDS: DUONEB 0.5-3 MG/3 ml Neb IH PRN (07:45)
[2021-06-18] MEDS ORDERED: NON-FORMULARY ITEM (Lisinopril/Hydrochlorothiazide [Lisinopril-Hctz 10-12.5 Mg Tab] 1 EACH PO SCH (10:00)
[2021-06-18] MEDS ORDERED: PRAZOSIN HCL PO SCH (10:00)
--- NOTE | 2021-06-18 10:48 | XRAY ---
Indication: Bilateral leg pain, swelling, and erythema. Two-dimensional sonogram and color Doppler imaging of the major venous vessels of the left and right leg performed. Comparison: None Group Tester notes technically difficult exam due to patient body habitus, severe pain, and movement. No thrombus seen in the examined deep venous vessels of the left and right leg including greater saphenous vein. Veins demonstrate normal compressibility. Venous waveforms are normal with and without augmentation. Impression: Limited bilateral leg venous sonogram is negative for DVT.
[2021-06-18] MEDS: ENOXAPARIN SODIUM SQ SCH (11:29)
[2021-06-18] MEDS ORDERED: Cleocin Phosphate IV 300 MG/50 ML*** 300 MG/50 ML IVPB IV SCH (12:00)
[2021-06-18] MEDS: Cleocin Phosphate IV 300 MG/50 ML*** 300 MG/50 ML IVPB IV SCH ×3 (12:30→23:29)
[2021-06-18] MEDS: Imdur 30 MG PO SCH (12:31)
[2021-06-18] MEDS: LASIX 20 MG PO SCH (12:31)
[2021-06-18] MEDS: Zestril 10 MG*** 10 MG, hydroDIURIL 25 MG*** 12.5 MG PO SCH ×2 (12:41)
[2021-06-19] MEDS: DUONEB 0.5-3 MG/3 ml Neb IH PRN ×3 (00:12→19:02)
[2021-06-19] MEDS: Cleocin Phosphate IV 300 MG/50 ML*** 300 MG/50 ML IVPB IV SCH ×2 (05:13→11:23)
[2021-06-19] MEDS: MORPHINE SULFATE 4 MG INJ IV PRN ×2 (05:25→11:22)
[2021-06-19 05:59] LABS: Absolute Neutrophil Ct (ANC) 4.27 (1.4-6.9); Basophil (Absolute #) 0.02 (0-0.4); Eosinophil % 2.1 % (0.00-5.0); Eosinophil (Absolute #) 0.16 (0-0.5); Hemoglobin 10.7 gm/dl (12.0-16.0); Lymphocyte (Absolute #) 1.96 (1.0-4.6); Lymphocytes % 26.1 % (24.0-44.0); Mean Cell Volume 93.5 fl (78-100); Mean Corpuscular Hemoglobin 27.8 pg (26-32); Mean Corpuscular Hgb Concent. 29.7 g/dl (32-36); Monocytes % 14.6 % (0.0-12.0); Neutrophil % 56.9 % (36.0-66.0); Platelet Count 389 K/mm3 (150-450); Red Blood Count 3.85 M/mm3 (4.1-5.4); Red Cell Distribution Width 16.1 % (11.5-14.0); White Blood Count 7.5 K/mm3 (4.0-10.5)
[2021-06-19 07:02] LABS: ALBUMIN 3.8 g/dL (3.5-5.0); ALKALINE PHOSPHATASE 124 U/L (38-126); ANION GAP 9.8 MEQ/L (5-15); BLOOD UREA NITROGEN 11 mg/dL (7-17); CHLORIDE 101 mmol/L (98-107); Calcium 8.6 mg/dL (8.4-10.2); Carbon Dioxide 29 mmol/L (22-30); Creatinine 1 0.72 mg/dL (0.52-1.04); EST GLOMERULAR FILTRATION RATE > 60.0 ML/MIN; Glucose 100 mg/dL (74-106); Potassium 3.9 mmol/L (3.5-5.1); SGOT/AST 22 U/L (14-36); SGPT/ALT 16 U/L (0-35); SODIUM 136 mmol/L (137-145); Total Protein 7.3 g/dL (6.3-8.2)
[2021-06-19] MEDS: LASIX 20 MG PO SCH (09:41)
[2021-06-19] MEDS: ENOXAPARIN SODIUM SQ SCH (09:41)
[2021-06-19] MEDS: Zestril 10 MG*** 10 MG, hydroDIURIL 25 MG*** 12.5 MG PO SCH ×2 (09:41)
[2021-06-19] MEDS: Imdur 30 MG PO SCH (09:41)
--- NOTE | 2021-06-19 10:48 | XRAY ---
Indication: halfway placement. Comparison: August 22, 2020. Portable chest again demonstrates mild right lung base infiltrate/atelectasis minimally improved and new mild left lung base infiltrate/atelectasis. Heart not enlarged. Bony thorax intact.
[2021-06-19] MEDS: NON-FORMULARY ITEM PO SCH (11:22)
[2021-06-19] MEDS: NORCO 5/325 MG PO PRN ×2 (16:58→20:58)
[2021-06-19] MEDS: CLEOCIN 150 MG CAPSULE PO SCH (18:48)
[2021-06-20] MEDS: CLEOCIN 150 MG CAPSULE PO SCH ×4 (00:31→18:00)
[2021-06-20] MEDS: NORCO 5/325 MG PO PRN ×3 (05:09→19:33)
[2021-06-20] MEDS: Nicoderm CQ 21 MG TOP SCH (09:32)
[2021-06-20] MEDS: ENOXAPARIN SODIUM SQ SCH (09:32)
[2021-06-20] MEDS: LASIX 20 MG PO SCH (09:32)
[2021-06-20] MEDS: Zestril 10 MG*** 10 MG, hydroDIURIL 25 MG*** 12.5 MG PO SCH ×2 (09:32)
[2021-06-20] MEDS: NON-FORMULARY ITEM PO SCH (09:33)
[2021-06-20] MEDS: Imdur 30 MG PO SCH (09:33)
--- NOTE | 2021-06-20 13:32 | SSS ---
DISCHARGE DIAGNOSES: 1) CELLULITIS RIGHT LOWER EXTREMITY. 2) MORBID OBESITY. 3) HYPOXIA. HISTORY: The patient is a 46-year-old white female who presented to the emergency room with complaints of right lower extremity pain. She noticed the posterior portion of the right calf area was draining and the pain was to the point where she felt she needed to be seen. She was seen in the emergency room and admitted to the hospital for evaluation, management and further treatment of the cellulitis to right lower extremity. PAST MEDICAL/SURGICAL HISTORY: Significant for chronic obstructive pulmonary disease, degenerative disc disease, bipolar depression, panic disorder, sleep apnea. The patient had reported to us that [employer] had recently took her CPAP machine away from her for really unknown reason. The patient is a smoker. HOME MEDICATIONS: B12 on PRN basis, duloxetine 60 mg a day, isosorbide mononitrate 30 mg a day, omeprazole 20 mg a day, Prazosin 5 mg a day, risperidone 3 mg daily. ALLERGIES: PENICILLIN. SULFA. BETADINE. FAMILY HISTORY: Noncontributory. SOCIAL HISTORY: The patient reports her home situation is that she is living with her boyfriend who also has medical issues and really cannot help much. The patient is a smoker. PHYSICAL EXAMINATION: Vital signs on admission showed temperature 98.0F. She has pulse of 82, respiratory rate 20, blood pressure 113/65. O2 saturation was 92% on 3 liters nasal cannula. The patient's physical examination otherwise reveals a morbidly, white female in no obvious pain presently. HEENT: Normocephalic, atraumatic. She is wearing oxygen per nasal cannula. Oropharynx is pink and moist. NECK: Supple without lymphadenopathy, thyromegaly or JVD. CHEST: Essentially clear to auscultation presently. HEART: Regular rate and rhythm without murmurs, rubs or gallops. ABDOMEN: Protuberant. No masses were felt. EXTREMITIES: Revealed redness and swelling of the right lower extremity and some posterior drainage. NEUROLOGIC: She is alert and oriented x3 with no focal deficits. LAB DATA AND TESTS: Her initial laboratory studies showed her white count to be 8.8, hemoglobin 12.1, PLT count 441,000. Metabolic panel was entirely normal than slight elevation of alkaline phosphatase at 147. She had a lactic acid initially at 1.4. She had COVID, influenza and respiratory syncytial virus tests were negative in the emergency room. HOSPITAL COURSE: The patient admitted to the medicine [place] and started on Cleocin IV every six hours. We did see some resolution of the redness around the cellulitis area. The patient was also treated with morphine for pain initially. The patient now reports that she cannot put any weight on the leg that she cannot even take care of personal issues and keeping herself clean on her bottom. She is unable to ambulate independently and this has not really improved much during her stay. Her oxygen levels appear to show that she will need oxygen at least temporarily. The patient's pain medicine was changed to [place] 5-325 and will give that to her every six hours on PRN basis. She is to continue on her usual home medications as she will be on additional Cleocin orally for an additional seven days. She will be sent to [facility] for further evaluation and management, for physical therapy needs particularly with ambulation, personal hygiene and continue dressing changes on the right lower extremity.
[2021-06-20] MEDS: DUONEB 0.5-3 MG/3 ml Neb IH PRN (18:38)
[2021-06-21] MEDS: CLEOCIN 150 MG CAPSULE PO SCH ×3 (00:42→12:31)
[2021-06-21] MEDS: NORCO 5/325 MG PO PRN ×2 (05:43→10:05)
--- NOTE | 2021-06-21 09:16 | CONS ---
CONSULT DATE: 06/20/2021 REASON FOR CONSULT: Evaluation of sleep apnea and shortness of breath. HISTORY: Billie Pimentel is a 46-year-old morbidly obese woman who has been hospitalized with complaints of lower extremity cellulitis. The patient has been diagnosed with sleep apnea apparently based on a sleep study performed at home. She apparently did get to use noninvasive ventilation. However, the company, [employer], ended up recovering the equipment back due to poor compliance. The patient appears to also have had chronic obstructive pulmonary disease. She does use bronchodilators at home. She continues to smoke and reportedly was smoking up to three packs per day. The patient's effort tolerance has significantly reduced. She continues to have cough during my conversation. The patient is likely to go to a nursing facility for a few days to treat cellulitis. PAST MEDICAL HISTORY: Positive for chronic obstructive pulmonary disease, gastroesophageal reflux disease, hypertension, obesity, coronary artery disease, anxiety and depression this is based on her medication history. PAST SURGICAL HISTORY: Heart cath. D&C. PERSONAL AND SOCIAL HISTORY: As above. She lives with her boyfriend who apparently is not in the best of health as well. MEDICATIONS: Medications reviewed. ALLERGIES: ALLERGIES NOTED. PHYSICAL EXAMINATION: This is a middle aged woman who appears comfortable, sitting in chair, able to carry out a conversation. Vital signs noted. HEENT: Normocephalic. Oral exam shows small oropharynx. NECK: Short. Supple. CVS: First and second heart sounds are normal, regular, rhythmic. RESPIRATORY: Shows diminished breath sounds, bilateral rhonchi are heard. ABDOMEN: Obese. EXTREMITIES: Lower extremities are wrapped and appear to have 2+ leg edema. LABORATORY DATA AND TESTS: Cultures are negative to date. Sodium 136, potassium 3.9, chloride 101, bicarb 29, glucose 100, BUN 11, creatinine 0.72. White count 7.5, hemoglobin 10.7, hematocrit 36, PLT count 389,000. Lactic acid 0.7. COVID PCR was negative. Influenza A, B as well as respiratory syncytial virus was negative as well. Chest x-ray showed mild infiltrate/atelectasis at lung bases. ASSESSMENT: This is a 46-year-old woman with prior history of sleep apnea admitted with: 1) Cellulitis and what appears to be likely right ventricular failure with cor pulmonale. 2) Underlying chronic obstructive pulmonary disease. 3) Hypoxemia. 4) Nicotine addiction. 5) Cellulitis of lower extremity. RECOMMENDATIONS: 1) I had a long discussion with the patient. I explained to her the need for compliance with noninvasive ventilation therapy. The patient reports that she is willing to retry given which will give a trial of Auto-PAP during her hospital stay. The patient is likely to be discharged to a nursing facility and the same if tolerated can be continued at nursing facility as well. If the patient gets discharged she will need a repeat sleep study to qualify her for noninvasive ventilation again. 2) Continue supplemental oxygen. 3) I agree with bronchodilators. 4) Deep vein thrombosis prophylaxis. 5) Pulmonary function test at a later point. 6) A 2D echocardiogram to assess right ventricular pressure before discharge. 7) Advised to follow up with me in a month given she is likely to spend two to three weeks in the long-term prior to being discharged home. Further recommendations awaiting the patient's compliance and clinical improvement. Thank you, Dr. Ortiz, for allowing me to participate in the care of your patient.
[2021-06-21] MEDS: Nicoderm CQ 21 MG TOP SCH (09:59)
[2021-06-21] MEDS: NON-FORMULARY ITEM PO SCH (10:00)
[2021-06-21] MEDS: LASIX 20 MG PO SCH (10:01)
[2021-06-21] MEDS: Zestril 10 MG*** 10 MG, hydroDIURIL 25 MG*** 12.5 MG PO SCH ×2 (10:01)
[2021-06-21] MEDS: Imdur 30 MG PO SCH (10:02)
[2021-06-21] MEDS: ENOXAPARIN SODIUM SQ SCH (10:02)
[2021-06-21 12:34] VITALS: BP 104/52; PULSE 83; O2SAT 96
[2021-06-21] MEDS ORDERED: ATARAX 25 MG PO SCH (22:00)
== END 2021-06-21 12:40 ==
LOC: ED 11:41 → MED SURG 15:37
PROVIDERS: ADMIT Family Medicine; ATTEND Family Medicine
DX: L03.115 Cellulitis of right lower limb (principal); E66.01 Morbid (severe) obesity due to excess calories; R09.02 Hypoxemia; J44.9 Chronic obstructive pulmonary disease, unspecified; G47.30 Sleep apnea, unspecified; I10 Essential (primary) hypertension; Z79.899 Other long term (current) drug therapy; Z72.0 Tobacco use; Z20.828 Contact with and (suspected) exposure to other viral communicable diseases
CPT/HCPCS: 0241U; 29580; 36000; 36415; 71045; 80053; 83605; 83690; 84484; 85025; 87040; 93005; 93306; 93970; 94640; 94660; 94760; 96360; 96374; 97110; 97161; 97530; 99284; G0378; A6457; J1650; J2270; A9270-GY